=== PATIENT | female | born 1955 | race Two or more races ===

== ENCOUNTER 2020-05-01 10:41 | Outpatient (REF) | payer MEDICAID, SELFPAY ==
--- NOTE | 2020-05-01 | MM_ITS ---
EXAMINATION: MM SCREENING DIGITAL BREAST TOMOSYNTHESIS, BILATERAL CLINICAL INFORMATION: Screening. Asymptomatic. The lifetime risk of breast cancer based on the Tyrer-Cuzick Model is 4%. COMPARISON: Mammography: 08/30/2018, 06/22/2017 TECHNIQUE: Digital breast tomosynthesis is performed in both the craniocaudal and mediolateral oblique views along with computer-aided detection (CAD). Synthesized 2D images are generated from the tomosynthesis. FINDINGS: There are scattered areas of fibroglandular density (ACR BI-RADS breast composition Category b). There are scattered bilateral stable small nodularity again noted in each breast. There is no developing density or interval mass or architectural abnormality or abnormal calcifications. No significant changes. IMPRESSION: No significant changes from prior studies. ASSESSMENT: BI-RADS 2: Benign RECOMMENDATION: Routine annual mammography screening. This patient's information was entered into a reminder system with a target due date for their next mammogram.
== END 2020-05-01 10:42 | disposition home or self-care (01) ==
LOC: HO.MAMMO 10:41
PROVIDERS: Visit Provider Nurse Practitioner Family
DX: Z12.31 Encounter for screening mammogram for malignant neoplasm of breast (principal)
CPT/HCPCS: 77063; 77067; 78014

== ENCOUNTER 2021-04-02 09:10 | Emergency (ER) | payer MEDICARE, MEDICAID, SELFPAY ==
--- NOTE | ~2021-04-02 | XR_ITS ---
EXAMINATION: XR KNEE, RIGHT CLINICAL INFORMATION: Pain. COMPARISON: Previous right knee x-ray March 2017 TECHNIQUE: Four views of the right knee. FINDINGS: Bone alignment is normal. No fracture or dislocation is seen. There is arthritis at the lateral femoral tibial and patellofemoral joints with small osteophytes. There is no joint effusion. XR/XR knee RT 4V IMPRESSION: Mild arthritis.
--- NOTE | ~2021-04-02 | XR_ITS ---
EXAMINATION: XR TIBIA AND FIBULA, RIGHT CLINICAL INFORMATION: Vivar pain. No history of trauma. COMPARISON: None TECHNIQUE: AP and lateral views of the right tibia and fibula were obtained. FINDINGS: The bones and soft tissues are normal. No fracture. No osseous lesions. XR/XR tibia fibula RT 2V IMPRESSION: Normal right tibia and fibula.
--- NOTE | ~2021-04-02 | XR_ITS ---
EXAMINATION: LEFT HAND AND WRIST X-RAY CLINICAL INFORMATION: Pain. No history of trauma. COMPARISON: None TECHNIQUE: 4 views of the left hand and wrist FINDINGS: Bone alignment is normal. No acute fracture or dislocation is seen. There is a well-corticated ossification adjacent to the ulnar styloid and radial side of the DIP joint questionable for old trauma. There is mild arthritis at the first SNF joint and DIP joints of the second through fifth fingers and IP joint of the thumb. Soft tissues are unremarkable. XR/XR hand wrist LT IMPRESSION: Mild arthritis at the first SNF joint and IP joints.
[2021-04-02 09:24] VITALS: BP 147/72; PULSE 70; RESP 18; TEMP 36.9; O2SAT 98; BMI 36.5
--- NOTE | 2021-04-02 10:42 | ED.EXTPRO ---
HPI - Extremity Problem General Chief complaint: Extremity Problem Stated complaint: hand pain Time Seen by Provider: 04/02/21 10:23 Source: patient Mode of arrival: ambulatory Limitations: no limitations History of Present Illness HPI Narrative: 65-year-old female presenting to the ED with complaints of atraumatic left wrist/hand at the thumb aspect pain and atraumatic right knee pain/acevedo pain since yesterday worse today. She placed her thumb spica on that she reports she has had in the past to her left hand she reports that helps her pain to her left hand/wrist. She denies any injuries, fevers, chills, dizziness, headaches, neck pain/stiffness, paresthesias, chest pain, shortness of breath, dyspnea on exertion, orthopnea, palpitations, nausea/vomiting, abdominal pain or any other symptoms complaints or concerns at this time. MD Complaint: extremity pain Onset (ago): day(s) (Since yesterday worse today) Pain Consistency: constant Location: upper extremity (Left hand/wrist) and knee (Right knee/acevedo) Quality: aching and constant Radiation: none Relieving factors: immobilization Exacerbating factors: range of motion and palpation Associated symptoms: denies other symptoms Related Data Previous Rx's Medication Instructions Recorded acetaminophen 300 mg-codeine 30 mg 1 tab PO Q8H PRN #10 tab 04/02/21 tablet lidocaine HCl 4 % topical cream 1 appl TOPICAL BID PRN #120 g 04/02/21 (Aspercreme (lidocaine HCl)) naproxen 500 mg tablet 500 mg PO BID PRN #10 tab 04/02/21 Allergies Allergy/AdvReac Type Severity Reaction Status Date / Time No Known Allergies Allergy Unverified 04/11/20 14:49 [No Known Allergies*] Review of Systems Review of Systems: Constitutional : No Weight loss, No Fever, No Chills, No Night Sweats, No Fatigue, No Malaise ENT/Mouth : No Hearing loss, No Ear Pain, No Nasal Congestion, No Sinus Pain, No Hoarseness, No sore throat, No Rhinorrhea, No Swallowing Difficulty Eyes: No Eye Pain, No Swelling, No Redness, No Foreign Body, No Discharge, No Vision Changes Cardiovascular : No Chest Pain, No SOB, No Dyspnea on Exertion, No Orthopnea, No Edema, No Palpitations Respiratory : No Cough, No Sputum, No Wheezing, No Smoke Exposure, No Dyspnea Gastrointestinal : No Nausea, No Vomiting, No Diarrhea, No Constipation, No abdominal Pain, No Hematochezia, No Melena Genitourinary : no irregular bleeding, No Dysuria, No Urinary Frequency, No Hematuria, No Urinary Incontinence, No Urgency, No Flank Pain, No Urinary Flow Changes, No Hesitancy Musculoskeletal : Positive left hand/wrist/thumb joint pain and right knee/acevedo pain, No joint pain, No Myalgias, No Joint Swelling Skin : No Skin Lesions, No rash Neuro : No Weakness, No Numbness, No Paresthesias, No Loss of Consciousness, No Dizziness, No Headache Psych : No Anxiety/Panic, No Depression, No SI/HI/AH/VH, No Social Issues, Heme/Lymph: No Bruising, No Bleeding,No Lymphadenopathy Endocrine : No Polyuria, No Polydipsia, No Temperature Intolerance Yes all other systems are reviewed and are negative [facility] Past Medical History Attestation statement: The following information was validated with the patient. Medical History Arthritis Diabetes High cholesterol Hypertension Social History Social History Advance Directives: Yes Advance Directives Information Provided: Yes Advance Directives on File: No Physical Exam Vital Signs: Vital Signs: Last Vital Signs Temp 98.4 F 04/02/21 09:24 Pulse 70 04/02/21 09:24 Resp 18 04/02/21 09:24 BP 147/72 H 04/02/21 09:24 Pulse Ox 98 04/02/21 09:24 Body Mass Index 36.5 vital signs have been reviewed as normal and appeared to be correct. Blood pressure hypertensive 147/72 Heart rate normal. Respiration rate normal. Temperature normal. Oxygen saturation normal. Appearance: Alert. Oriented X3. No acute distress. Head: Normal external exam. Normocephalic. Atraumatic. Eyes: PERRLA. EOMI. Conjunctiva and sclera normal. Eyelids normal. ENT: Pharynx normal. Uvula midline. Moist mucous membranes. Neck: Normal inspection. Neck supple. FROM. No adenopathy. No meningeal signs. CVS: Normal heart rate and rhythm. Pulses normal throughout. Respiratory: No respiratory distress. Painless inspiration. Back: Full range of motion noted. No rashes/lesion/induration/fluctuance or signs of infection noted. Skin: Skin warm and dry. Normal skin color. Normal skin turgor. No rashes/lesions/lacerations noted. Extremities: Patient with tenderness palpation to left thumb at the proximal aspect with mild soft tissue swelling. Although patient has full range of motion no ligamentous laxity noted. No edema noted. Patient with sinus up patient to right knee joint at the lateral aspect of the knee/proximal acevedo aspect mild soft tissue swelling although no ligamentous laxity noted. Patient has full range of motion of the right knee and ankle joint. No lower extremity edema. No calf tenderness is noted b/l. Otherwise all other Extremities exhibit normal range of motion and nontender. Neuro: Oriented X 3. No motor deficit. No sensory deficit. Reflexes normal. Normal steady gait. No focal neuro deficits noted. Vascular: + radial pulses/+ 2 distal pedal pulses/+2 dorsalis pedis b/l. Normal cap refill. No cyanosis noted to upper extremity nails and lower extremity toes nails. Course Course Course Narrative: 65-year-old female presenting to the ED with complaints of atraumatic left hand/wrist/thumb and right knee/acevedo pain since yesterday worse today. Patient has full range of motion of all joints no signs of infection. No extremity edema noted. X-rays obtained and revealed arthritis otherwise no other acute processes. I had offered the patient an Dilan wrap although she reported she does not need an Dilan wrap. She already has a thumb spica to her left hand/wrist. Will DC home with instructions to follow-up with her primary care provider and referral to orthopedic and I explained to her to reach out to her primary care provider before reaching out to Orthopedics and to return if any new or worsening symptoms. Patient understands agrees with this plan. MDM - Extremity (Nontraumatic) Imaging Data X-ray of left hand/wrist and right knee/tibia/fibula: Attestation: I personally reviewed and interpreted this imaging study as follows: Radiologist's impression: FINDINGS: Bone alignment is normal. No acute fracture or dislocation is seen. There is a well-corticated ossification adjacent to the ulnar styloid and radial side of the DIP joint questionable for old trauma. There is mild arthritis at the first ASSISTED joint and DIP joints of the second through fifth fingers and IP joint of the thumb. Soft tissues are unremarkable.? XR/XR hand wrist LT IMPRESSION: Mild arthritis at the first ASSISTED joint and IP joints.? FINDINGS: Bone alignment is normal. No fracture or dislocation is seen. There is arthritis at the lateral femoral tibial and patellofemoral joints with small osteophytes. There is no joint effusion.? XR/XR knee RT 4V IMPRESSION: Mild arthritis. FINDINGS: The bones and soft tissues are normal. No fracture. No osseous lesions. ? XR/XR tibia fibula RT 2V IMPRESSION: Normal right tibia and fibula. Discharge Plan Discharge Clinical Impression: Arthritis Patient Disposition: Home, Self-Care Instructions: Osteoarthritis (ED) Prescriptions: New naproxen 500 mg tablet 500 mg PO BID PRN (Reason: pain) Qty: 10 RF: 0 lidocaine HCl [Aspercreme (lidocaine HCl)] 4 % cream 1 appl topical BID PRN (Reason: pain) Qty: 120 RF: 0 acetaminophen-codeine 300-30 mg tablet 1 tab PO Q8H PRN (Reason: pain) Qty: 10 RF: 0 Referrals: Vania Baldwin MD [Physician] - 2 weeks (If you cannot follow-up with her primary care provider) Physician,Will [Primary Care Provider] - 2 days Print Language: Anguillan
== END 2021-04-02 11:55 | disposition home or self-care (01) ==
PROVIDERS: Emergency Provider Emergency Medicine
DX: M19.032 Primary osteoarthritis, left wrist (principal); M25.532 Pain in left wrist; M79.605 Pain in left leg; M79.604 Pain in right leg; Z79.899 Other long term (current) drug therapy
CPT/HCPCS: 73110; 73130; 73564; 73590; 99283

== ENCOUNTER → 2021-04-11 14:43 | Outpatient (BNVA) | payer MEDICARE, MEDICAID, SELFPAY | PROVIDERS: Visit Provider Physician Assistant | DX: M17.11 Unilateral primary osteoarthritis, right knee (principal); M18.11 Unilateral primary osteoarthritis of first carpometacarpal joint, right hand | CPT/HCPCS: 20610; 99212; J1020 ==

== ENCOUNTER 2021-04-23 09:48 | Outpatient (RCR) | payer MEDICARE, MEDICAID, SELFPAY ==
--- NOTE | 2021-04-23 13:34 | MHC.OT.OEV ---
[address] [phone] F: [phone] Occupational Therapy Evaluation Diagnosis: Left thumb CMC Arthritis Date of Onset: 04/02/21 Attending Provider: Dimitris Davenport PA-C Prescribed Treatment: Eval and Treat History of Current Condition: 65 yo female presents w/ left thumb pain, seen in the ED and x-ray shows mild D1 CMC arthritis and IP arthritis. She was referred to [facility] and recommended to wear thumb spica orthosis, now referred to OT for further management. XR/XR hand wrist LT IMPRESSION: Mild arthritis at the first MCFP joint and IP joints. 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, enjoys watching tv Living Situation, Family and/or Social Support: Lives w/ Current Level of Function and Occupation Self Care, Employment, Leisure: Difficulty grasping items, primarily uses dominant right hand Sleep: WNL Driving: Does not drive Pain Assessment Pain Score: 6 Pain Scale Used: Numeric (0 - 10) Pain Location and Description: Pain free at rest Aggravating Factors: Grasping items, heavy use Alleviating Factors: Uses a cream, no significant relief Wears pre-willian orthosis w/ good relief Sensory Assessment Comments: Pt reports occasional burning in finger tips, hx of DM Dexterity Assessment Dexterity: WFL Comments: Special Tests Comments: (-) Grind Test B/L'ly AROM(PROM) Strength Cervical Cervical Flexion: Cervical Extension: Cervical Lateral Flexion: Cervical Rotation: Comments: WNL Shoulder Flexion: Extension: Abduction: Internal Rotation: External Rotation: Comments: WFL, min decreased end range flex Flexion: Extension: Abduction: Internal Rotation: External Rotation: Comments: Elbow Flexion: Extension: Pronation: Supination: Comments: WFL Flexion: Extension: Pronation: Supination: Comments: Wrist Flexion: Extension: Ulnar Deviation: Radial Deviation: Comments: WFL Flexion: Extension: Ulnar Deviation: Radial Deviation: Comments: Thumb Thumb CMC Flexion: Thumb MCP Flexion: Thumb IP Flexion: Radial Abduction: Palmar Abduction: Crestone (Kapandji 0-10): Comments: WFL Digits Index MCP: PIP: DIP: Long MCP: PIP: DIP: Ring MCP: PIP: DIP: Small MCP: PIP: DIP: Comments: WFL Gross Grasp: R 35lb L 25lb Lateral Pinch: Two-Point Pinch: Three-Jaw Ming: 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 Patient demonstrates Patient verbalizes Barriers to Learning: None Readiness for Learning: Accepting Who was educated? Patient Comments: Plan of Care Assessment: 65 yo female w/ hx of mild CMC arthritis, presents to OT for further education and management of pain. On assessment, she reports being pain free. Her left gross grasp is weaker than non-dominant hand, but within functional limits for daily activities and she reports using dominant right hand for most daily activities. She is pleasant and agreeable to brief course of OT for education on joint protection, activity modification and pain management. STG Duration: 1 week Short Term Goals: Ind w/ HEP Ind w/ orthosis wear a needed Pt to demo good use of joint protection and activity modification techniques w/ daily activities LTG Duration: Retirement Goals: Same as above Frequency and Duration: The patient will be seen 1-2 follow up visits Treatment Plan: Therapeutic Exercise Therapeutic Activity Home Exercise Program Splinting Patient Education Edema Control ADL Training Paraffin Fluidotherapy MHP Cold Packs Joint Mobilization Soft Tissue Mobilization Kinesiotaping Electronically Signed By: Yulia Mason OTR/L Please sign and return to therapist, Thank you for your referral.
--- NOTE | 2021-05-01 14:41 | MHC.OT.DC ---
[address] [phone] F: [phone] Occupational Therapy Discharge Note Provider: Dimitris Davenport PA-C Diagnosis: Left thumb CMC Arthritis Date of Evaluation: 04/23/21 Date of Discharge: 05/01/21 Treatments to Date: 1 No Shows to Date: 1 Discharge Status: Patient Elected to Stop Discharge Summary: Renate was seen for her initial OT appt, was pain free at the time w/ good range, receptive to education and agreed to brief course of OT. She did not show for follow up visit and did not schedule further therapy. She is likely Ind w/ self management. Electronically Signed By: Yulia Mason OTR/L Please Sign and return to therapist, thank you for your referral.
== END 2021-05-01 14:41 | disposition home or self-care (01) ==
LOC: HO.OT 09:48
PROVIDERS: Visit Provider Physician Assistant
DX: M18.11 Unilateral primary osteoarthritis of first carpometacarpal joint, right hand (principal)
CPT/HCPCS: 97110; 97165

== ENCOUNTER 2021-06-11 10:44 | Outpatient (REF) | payer MEDICARE, MEDICAID, SELFPAY ==
--- NOTE | ~2021-06-11 | MM_ITS ---
EXAMINATION: MM SCREENING DIGITAL BREAST TOMOSYNTHESIS, BILATERAL CLINICAL INFORMATION: Screening. Asymptomatic. The lifetime risk of breast cancer based on the Tyrer-Cuzick Model is 4%. COMPARISON: Mammography: 05/01/2020, 08/30/2018, 06/22/2017 TECHNIQUE: Digital breast tomosynthesis is performed in both the craniocaudal and mediolateral oblique views along with computer-aided detection (CAD). Synthesized 2D images are generated from the tomosynthesis. Additional left CC view is provided. FINDINGS: There are scattered areas of fibroglandular density (ACR BI-RADS breast composition Category b). There are no significant masses, abnormal calcifications, or other abnormalities. Background fine nodularity is stable. There is no interval dominant nodularity or developing density or architectural abnormality. There are scattered benign punctate and coarse round calcifications. The axilla and skin contours are unremarkable. MM/MM tomosynthesis screening BI IMPRESSION: No mammographic evidence of malignancy. ASSESSMENT: BI-RADS 2: Benign RECOMMENDATION: Routine annual mammography screening. This patient's information was entered into a reminder system with a target due date for their next mammogram.
== END 2021-06-11 10:45 | disposition home or self-care (01) ==
LOC: HO.MAMMO 10:44
PROVIDERS: Visit Provider Advanced Practice Midwife
DX: Z12.31 Encounter for screening mammogram for malignant neoplasm of breast (principal)
CPT/HCPCS: 77063; 77067

== ENCOUNTER 2022-01-12 09:42 | Outpatient (REF) | payer MEDICARE, MEDICAID, SELFPAY ==
--- NOTE | ~2022-01-12 | XR_ITS ---
EXAMINATION: XR KNEE BILATERAL CLINICAL INFORMATION: Bilateral knee pain. COMPARISON: None. TECHNIQUE: 4 views each knee. FINDINGS: RIGHT KNEE: There is a moderate loss of tricompartment joint space with mild periapical spurring lateral and patellofemoral compartments. No joint effusion, loose bodies or bony erosive changes seen. There is no fracture or dislocation. No abnormal joint effusion seen. LEFT KNEE: There is severe loss of medial and patellofemoral compartment joint space with moderate periarticular spurring. No abnormal suprapatellar joint effusion seen. There are no loose bodies. XR/XR knee RT 4V IMPRESSION: Degenerative osteoarthritic changes in the tricompartments of both knees with periarticular spurring lateral and patellofemoral compartment. No acute fracture, lytic process or soft tissue swelling seen.
--- NOTE | ~2022-01-12 | XR_ITS ---
EXAMINATION: XR KNEE BILATERAL CLINICAL INFORMATION: Bilateral knee pain. COMPARISON: None. TECHNIQUE: 4 views each knee. FINDINGS: RIGHT KNEE: There is a moderate loss of tricompartment joint space with mild periapical spurring lateral and patellofemoral compartments. No joint effusion, loose bodies or bony erosive changes seen. There is no fracture or dislocation. No abnormal joint effusion seen. LEFT KNEE: There is severe loss of medial and patellofemoral compartment joint space with moderate periarticular spurring. No abnormal suprapatellar joint effusion seen. There are no loose bodies. XR/XR knee LT 4V IMPRESSION: Degenerative osteoarthritic changes in the tricompartments of both knees with periarticular spurring lateral and patellofemoral compartment. No acute fracture, lytic process or soft tissue swelling seen.
== END 2022-01-12 09:43 | disposition home or self-care (01) ==
LOC: HO.XRAY 09:42
PROVIDERS: PCP Registered Nurse Community Health; Visit Provider Registered Nurse Community Health
DX: M17.0 Bilateral primary osteoarthritis of knee (principal)
CPT/HCPCS: 73564

== ENCOUNTER → 2022-01-16 09:51 | Outpatient (BNVA) | payer MEDICARE, MEDICAID, SELFPAY | PROVIDERS: PCP Registered Nurse Community Health; Visit Provider Orthopaedic Surgery | DX: M17.11 Unilateral primary osteoarthritis, right knee (principal) | CPT/HCPCS: 99212 ==

== ENCOUNTER 2023-03-18 11:00 | Outpatient (REF) | payer MEDICARE, MEDICAID, SELFPAY ==
[2023-03-18 14:18] LABS: Cholesterol 129 mg/dL (<200); HDL Cholesterol 48 mg/dL (>40); LDL Cholesterol Calculated 60 mg/dL (<100); Triglycerides 108 mg/dL (<150)
== END 2023-03-18 11:01 | disposition home or self-care (01) ==
LOC: HO.HHCL 11:00
PROVIDERS: Visit Provider Registered Nurse
DX: E11.9 Type 2 diabetes mellitus without complications (principal)
CPT/HCPCS: 36415; 80061

== ENCOUNTER 2023-03-23 13:08 | Outpatient (REF) | payer MEDICARE, MEDICAID, SELFPAY ==
[2023-03-23 17:31] LABS: Creatinine Urine 179.62 mg/dL; Microalbum/Creatinine Ratio Ur 28.3 ug/mg cr (<30)
== END 2023-03-23 13:09 | disposition home or self-care (01) ==
LOC: HO.HHCL 13:08
PROVIDERS: Visit Provider Registered Nurse
DX: E11.9 Type 2 diabetes mellitus without complications (principal)
CPT/HCPCS: 82043

== ENCOUNTER 2023-08-26 13:12 | Outpatient (REF) | payer MEDICARE, MEDICAID, SELFPAY ==
--- NOTE | ~2023-08-26 | XR_ITS ---
EXAMINATION: XR LUMBOSACRAL SPINE CLINICAL INFORMATION: Low back pain for 5 days COMPARISON: None available. TECHNIQUE: Three views of the lumbosacral spine. FINDINGS: There is mild levoscoliosis of lumbar spine and straightening of lumbar lordosis. Vertebral bodies are well aligned and intervertebral discs are preserved except of mild narrowing of L5-S1 intervertebral disc space. Pedicles are intact and there is no spondylolysis or listhesis. Soft tissues unremarkable. Sacroiliac joints are intact. XR/XR lumbar spine 2-3V IMPRESSION: Mild degenerative changes at the level of L5-S1.
== END 2023-08-26 13:13 | disposition home or self-care (01) ==
LOC: HO.HHCX 13:12
PROVIDERS: Visit Provider Emergency Medicine
DX: M54.50 Low back pain, unspecified (principal); R35.0 Frequency of micturition
CPT/HCPCS: 72100; 87086

== ENCOUNTER 2023-12-10 11:43 | Emergency (ER) | payer MEDICARE, MEDICAID, SELFPAY ==
--- NOTE | 2023-12-10 11:54 | ED_ITS ---
HPI - General Adult General Chief complaint: Upper Respiratory Symptoms Stated complaint: Flu symptoms Time Seen by Provider: 12/10/23 13:17 Source: patient and family Mode of arrival: ambulatory Limitations: no limitations History of Present Illness HPI narrative: 68 year old female hx of HTN, asthma, diabetes, arthritis presents w/ fatigue, malaise, myalgias, sore throat, cough, chest congestion/ soreness from coughing X 2 days sick with similar symptoms. No cp, sob, nausea, vomiting, diarrhea, vision changes, dizziness. Related Data Home Medications ?Medication ?Instructions ?Recorded ?Confirmed hydrochlorothiazide 25 mg tablet 25 mg PO DAILY 04/11/21 04/11/21 lisinopril 40 mg tablet 40 mg PO DAILY 04/11/21 04/11/21 metformin 500 mg tablet 1,000 mg PO BID 04/11/21 04/11/21 simvastatin 20 mg tablet 20 mg PO BEDTIME 04/11/21 04/11/21 Previous Rx's ?Medication ?Instructions ?Recorded acetaminophen 300 mg-codeine 30 mg 1 tab PO Q8H PRN pain #10 tabs 04/02/21 tablet lidocaine HCl 4 % topical cream 1 appl topical BID PRN pain #120 04/02/21 (Aspercreme (lidocaine HCl)) grams naproxen 500 mg tablet 500 mg PO BID PRN pain #10 tabs 04/02/21 Allergies Allergy/AdvReac Type Severity Reaction Status Date / Time No Known Allergies Allergy Verified 12/10/23 11:59 [No Known Allergies*] Review of Systems Review of Systems: Yes all other systems are reviewed and are negative PMFSH Past Medical History Attestation statement: The following information was validated with the patient. 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 Oriented X3.? No acute distress.? Head: Normocephalic, atraumatic, no step-offs or deformities Eyes: Pupils equal, round and reactive to light.? ENT: Pharynx normal.? Neck: Normal inspection.? Neck supple.? CVS: Normal heart rate and rhythm.? Pulses normal.? Respiratory: No respiratory distress.? Breath sounds normal.? Abdomen: Soft and nontender.? Skin: Skin warm and dry.? Normal skin color.? Normal skin turgor.? Extremities: No lower extremity edema.? No calf ttp. 5/5 strength to bilateral upper and lower extremities Neuro: Oriented X 3.? No motor deficit.? No sensory deficit. CN 2-12 intact Course Course Course Narrative: This is an RME done by SONI Canas: Additional HPI, ROS, PE not included below will be deferred to primary provider. 68 year old female hx of HTN, asthma, diabetes, arthritis presents w/ fatigue, malaise, myalgias, sore throat, cough, chest congestion/ soreness from coughing X 2 days sick with similar symptoms. No cp, sob, nausea, vomiting, diarrhea, vision changes, dizziness. Appearance: Alert.? Oriented X3.? No acute cardiopulmonary distress distress.? Head: Normocephalic, atraumatic, no step-offs or deformities ENT: Pharynx normal.? Neck: Normal inspection.? Neck supple.? CVS: Pulses normal.? Respiratory: No respiratory distress.? Abdomen: N/A Skin: ? Normal skin color. Extremities: 5/5 strength to bilateral upper and lower extremities Back: No midline tenderness, no C-spine tenderness, full range of motion, Neuro: Oriented X 3.? No motor deficit.? No sensory deficit. Reevaluation(s) Reevaluation #1: + covid --> dc w/ supportive measures Educated patient on diagnosis and treatment plan, answered all question, patient verbalizes understanding. At this time patient will be discharged home, advised to return with new or worsening symptoms. Educated on worrisome signs and symptoms and when to return. At this time I feel comfortable discharge home. Time: 13:27 Medical Decision Making Medical Decision Making [facility] Narrative: 1325 68 year old female presents w/ URI sx for the lasat 2 days. + sick contacts at home w/ similar sx. PE - benign hx and pe concerning for flu vs covid vs rsv. Unlikley acs, PE, pna, pneumothorax, ards, dissection, epiglotitis, RPA, DEHYDRATION UNIT OPERATOR, threat to airway Plan- strep test and viral test. Differential Diagnosis Differential Diagnoses: The differential diagnosis associated with the presentation includes hx and pe concerning for flu vs covid vs rsv. Unlikley acs, PE, pna, pneumothorax, ards, dissection, epiglotitis, RPA, DEHYDRATION UNIT OPERATOR, threat to airway Admission/Observation Consideration of admission/observation: Escalation of care including admission/observation considered Lab Data MDM Lab Attestation statement: I reviewed the patient's lab results. Labs: Lab Results 12/10/23 Range/Units 12:07 Influenza Type A (PCR) NEGATIVE (Negative) Influenza Type B (PCR) NEGATIVE (Negative) RSV RNA Qual (PCR) NEGATIVE (Negative) SARS-CoV-2 RNA (RT-PCR) POSITIVE A (Negative) S. pyogenes GrpA BLANCA Negative (Negative) Tests considered The following testing was considered but not selected: BS CTA- no indication for xray Prescription Management discussed paxlovid will follow up with PCP in regards to this med Chronic Conditions Patient?s care impacted by: Diabetes, Hypertension and Other Critical Care Time Critical Care Time Critical Care Time: No Discharge Plan Discharge Clinical Impression: COVID-19 Patient Disposition: Home, Self-Care Instructions: COVID-19 (Coronavirus Disease 2019) (ED) Additional Instructions: Take your medications as prescribed. If you were prescribed antibiotics today, it is important that you take your medication to their entirety, do not skip any doses, do not finish them early. Today you tested positive for COVID-19. Take Ibuprofen or Tylenol as needed for fevers or body aches. Quarantine for 5 days and ensure you wear a mask. After 5 days you should wear a mask for 5 days after that. Practice social distancing and good hand hygiene. Drink plenty of fluids. Follow-up with your primary care provider this week. Return to the emergency department with new or worsening symptoms. In case of emergency call 911 You can purchase a pulse oximeter from your local pharmacy or grocery store, and monitor your oxygen saturation if it goes below 94% you should return to the emergency department for further evaluation. Follow up with your PCP to discuss taking paxlovid if appropriate Prescriptions: No Action naproxen 500 mg tablet 500 mg PO BID PRN (Reason: pain) Qty: 10 0RF lidocaine HCl [Aspercreme (lidocaine HCl)] 4 % cream 1 appl topical BID PRN (Reason: pain) Qty: 120 0RF acetaminophen-codeine 300-30 mg tablet 1 tab PO Q8H PRN (Reason: pain) Qty: 10 0RF lisinopril 40 mg tablet 40 mg PO DAILY simvastatin 20 mg tablet 20 mg PO BEDTIME metformin 500 mg tablet 1,000 mg PO BID hydrochlorothiazide 25 mg tablet 25 mg PO DAILY Referrals: Physician,Unknown J [Primary Care Provider] - 2 days Print Language: Croatian
[2023-12-10 11:56] VITALS: BP 92/59; PULSE 84; RESP 20; TEMP 36.2; O2SAT 97; BMI 31.9
[2023-12-10 12:39] LABS: IDNOW Serial# 58CA691E; Strep A Nucleic Acid Negative (Negative)
[2023-12-10 13:08] LABS: Influenza A PCR NEGATIVE (Negative); Influenza B PCR NEGATIVE (Negative); Resp Syncy Virus RNA Qual PCR NEGATIVE (Negative); SARS COV2 PCR INHOUSE POSITIVE (Negative)
[2023-12-10 13:52] VITALS: BP 92/59; PULSE 64; RESP 20; TEMP 36.2; O2SAT 97
== END 2023-12-10 13:53 | disposition home or self-care (01) ==
LOC: HO.ED 13:45
PROVIDERS: Physician Assistant; Emergency Provider Emergency Medicine
DX: U07.1 COVID-19 (principal); J02.9 Acute pharyngitis, unspecified; R05.9 Cough, unspecified; R09.89 Other specified symptoms and signs involving the circulatory and respiratory systems
CPT/HCPCS: 0241U; 87651; 99282; 99283

== ENCOUNTER 2024-02-22 09:42 | Outpatient (REF) | payer MEDICARE, MEDICAID, SELFPAY ==
--- NOTE | ~2024-02-22 | XR_ITS ---
EXAMINATION: XR KNEE, RIGHT XR KNEE, LEFT CLINICAL INFORMATION: Osteoarthritis of both knees. COMPARISON: 01/12/2022 TECHNIQUE: Three views of each knee. FINDINGS: RIGHT KNEE: Bones are osteopenic. Moderate to severe lateral compartment joint space narrowing is again noted, more pronounced at the posterior weightbearing surface, similar to prior. Tricompartmental marginal osteophytes. No joint effusion. No fractures. LEFT KNEE: Moderate lateral compartment joint space narrowing. Tricompartmental marginal osteophytes. Chondrocalcinosis. No joint effusion. Bones are osteopenic. No fractures. XR/XR knee RT 3V IMPRESSION: Tricompartmental osteoarthritis in both knees, most pronounced in the lateral compartments, right greater than left. No significant change.
--- NOTE | ~2024-02-22 | XR_ITS ---
EXAMINATION: XR KNEE, RIGHT XR KNEE, LEFT CLINICAL INFORMATION: Osteoarthritis of both knees. COMPARISON: 01/12/2022 TECHNIQUE: Three views of each knee. FINDINGS: RIGHT KNEE: Bones are osteopenic. Moderate to severe lateral compartment joint space narrowing is again noted, more pronounced at the posterior weightbearing surface, similar to prior. Tricompartmental marginal osteophytes. No joint effusion. No fractures. LEFT KNEE: Moderate lateral compartment joint space narrowing. Tricompartmental marginal osteophytes. Chondrocalcinosis. No joint effusion. Bones are osteopenic. No fractures. XR/XR knee LT 3V IMPRESSION: Tricompartmental osteoarthritis in both knees, most pronounced in the lateral compartments, right greater than left. No significant change.
== END 2024-02-22 09:43 | disposition home or self-care (01) ==
LOC: HO.XRAY 09:42
PROVIDERS: PCP Registered Nurse; Visit Provider Registered Nurse
DX: M17.0 Bilateral primary osteoarthritis of knee (principal); M54.50 Low back pain, unspecified
CPT/HCPCS: 73562

== ENCOUNTER 2024-03-08 07:59 | Outpatient (REF) | payer MEDICARE, MEDICAID, SELFPAY ==
--- NOTE | ~2024-03-08 | MM_ITS ---
EXAMINATION: BONE DENSITOMETRY CLINICAL INDICATION: Asymptomatic menopausal state. COMPARISON: Previous BD dated 10/02/2011 and baseline BD dated 05/07/2010. TECHNIQUE: Using a [employer] DXA System (software version: 13.1) manufactured by [employer], dual-energy x-ray absorptiometry was performed of the lumbar spine and left hip. The images are of good technical quality. Summary results are attached. FINDINGS: LEFT FEMUR, NECK: Current: BMD 0.870 g/cm2, Z-score 0.1, T-score -1.2, osteopenia. Prior: BMD 1.024 g/cm2. Baseline: BMD 1.002 g/cm2. LEFT FEMUR, TOTAL: Current: BMD 0.921 g/cm2, Z-score 0.4, T-score -0.7, normal, 13.6% decrease from previous, 12.6% decrease from baseline (<5% change is not significant). Prior: BMD 1.066 g/cm2. Baseline: BMD 1.054 g/cm2. AP SPINE L1-L4: Current: BMD 1.085 g/cm2, Z-score 0.4, T-score -0.8, normal, 13.3% decrease from previous, 7.5% decrease from baseline (<5% change is not significant). Prior: BMD 1.251 g/cm2. Baseline: BMD 1.173 g/cm2. IDENTIFIED RISK FACTORS: Menopause, thiazide. HISTORY OF FRACTURE: None listed. MEDICATIONS: Vitamin D. MM/XR DEXA axial skeleton IMPRESSION: 1. DIAGNOSIS: Osteopenia based on the lowest T-score value of -1.2 in the femoral neck applying World Health Organization criteria. 2. 10-YEAR FRACTURE RISK PREDICTION, FRAX: Major osteoporotic fracture (clinical spine, forearm, hip or shoulder) 4.9%. Hip fracture 0.5%. 3. Treatment Recommendations: NOF guidelines recommend consideration for treatment in postmenopausal women and men age 50 and older presenting with the following: -A hip or vertebral (clinical or morphometric) fracture. -T-score less than or equal to -2.5 at the femoral neck or spine after appropriate evaluation to exclude secondary causes. -Low bone mass at the hip or spine and a 10-year fracture probability by FRAX of greater than or equal to 3% for hip fracture or greater than or equal to 20% for major osteoporotic fracture based on the [place] adapted WHO algorithm. 4. Other Recommendations: All treatment decisions require clinical judgment and consideration of individual patient factors, including patient preferences, comorbidities, previous drug use, risk factors not captured in the FRAX model (e.g. frailty, falls, vitamin D deficiency, increased bone turnover, interval significant decline in bone density) and possible under or overestimation of fracture risk by FRAX. Additional medical evaluation for secondary cause of low bone mineral density may be appropriate. FUTURE SCAN RECOMMENDATION: People with diagnosed cases of osteoporosis or at high risk for fracture should have regular bone mineral density tests. For patients eligible for Medicare, routine testing is allowed once every 2 years. The testing frequency can be increased to one year for patients who have rapidly progressing disease, those who are receiving or discontinuing medical therapy to restore bone mass, or have additional risk factors.
--- NOTE | ~2024-03-08 | MM_ITS ---
EXAMINATION: MM SCREENING DIGITAL BREAST TOMOSYNTHESIS, BILATERAL CLINICAL INFORMATION: Screening. Asymptomatic. COMPARISON: Mammography: This study is compared with prior exams dating back to 2017. TECHNIQUE: Digital breast tomosynthesis is performed in both the craniocaudal and mediolateral oblique views along with computer-aided detection (CAD). Synthesized 2D images are generated from the tomosynthesis. FINDINGS: There are scattered areas of fibroglandular density (ACR BI-RADS breast composition Category b). There are no significant masses, abnormal calcifications, or other abnormalities. MM/MM tomosynthesis screening BI IMPRESSION: No mammographic evidence of malignancy. ASSESSMENT: BI-RADS BI-RADS 1 - Negative RECOMMENDATION: Routine annual mammography screening. 1 year F/U This examination should not preclude the clinical evaluation of a suspicious palpable abnormality. This patient's information was entered into a reminder system with a target due date for their next mammogram. Electronically signed by: Tamara Goode MD 03/30/2024 04:18 PM EDT
== END 2024-03-08 08:00 | disposition home or self-care (01) ==
LOC: HO.MAMMO 07:59
PROVIDERS: PCP Registered Nurse; Visit Provider Registered Nurse
DX: Z12.31 Encounter for screening mammogram for malignant neoplasm of breast (principal); Z13.820 Encounter for screening for osteoporosis; Z78.0 Asymptomatic menopausal state
CPT/HCPCS: 77063; 77067; 77080

== ENCOUNTER → 2024-03-08 08:30 | Outpatient (BNV) | payer MEDICARE, MEDICAID, SELFPAY | PROVIDERS: PCP Registered Nurse; Visit Provider Radiology Diagnostic Radiology | DX: Z12.31 Encounter for screening mammogram for malignant neoplasm of breast (principal) | CPT/HCPCS: 77063; 77067 ==

== ENCOUNTER 2024-08-10 11:27 | Emergency (ER) | payer MEDICARE, MEDICAID, SELFPAY ==
--- NOTE | 2024-08-10 | ECG_ITS ---
Test Reason : dizziness Blood Pressure : */* mmHG Vent. Rate : 72 BPM Atrial Rate : 72 BPM P-R Int : 150 ms QRS Dur : 74 ms QT Int : 368 ms P-R-T Axes : 11 -28 17 degrees QTcB Int : 402 ms Normal sinus rhythm Nonspecific ST and T wave abnormality Abnormal ECG When compared with ECG of 14-May-2017 11:30, No significant change was found Referred By: Patricia Florence Electronically Signed By: Louie Bingham
--- NOTE | ~2024-08-10 | CT_ITS ---
EXAMINATION: CT HEAD WITHOUT CONTRAST CLINICAL INFORMATION: Dizziness. COMPARISON: None available. TECHNIQUE: Contiguous axial imaging was performed from the skull base to vertex without intravenous administration of contrast. This CT examination was performed using dose optimization techniques as appropriate, variously including the following: *Automated exposure control *Adjustment of mA and/or kV according to patient size (this includes techniques or standardized protocols for targeted exams where dose is matched to indication/reason for exam; i.e. extremities or head) *Use of iterative reconstruction technique FINDINGS: There is no evidence of intracranial hemorrhage or extra-axial fluid collection. There is no mass effect, or edema. No CT evidence of acute territorial infarct. Ventricles, sulci, and cisterns are normal in size and configuration for patient age. No hydrocephalus. No midline shift. Negative hyperdense MCA sign. Negative insular ribbon sign. Mild supratentorial white matter hypodensities, in keeping with small vessel ischemia. Partial empty sella. Globes and orbital contents image normally. No extracranial soft tissue abnormalities. The paranasal sinuses, mastoid air cells, and tympanic cavities are normally aerated. No suspicious bony abnormalities. CT/CT head/brain wo IV con IMPRESSION: No acute intracranial abnormality. Electronically signed by: Shaji Michael MD 08/10/2024 12:57 PM [facility]
[2024-08-10 11:32] VITALS: BP 142/72; BP 150/82; PULSE 74; PULSE 79; RESP 14; TEMP 36.3; O2SAT 98; BMI 30.1
--- NOTE | 2024-08-10 11:34 | ED.GENADULT ---
HPI - General Adult General Chief complaint: Dizziness Stated complaint: DIZZY FOR DAYS PER EMS Source: patient, RN notes reviewed and old records reviewed Mode of arrival: ambulatory Limitations: no limitations History of Present Illness ED Provider: Naman GOFF narrative: Patient is a 69-year-old female with history of DM, HTN, high cholesterol, arthritis presenting to the emergency department with complaint of intermittent dizziness for the past few days. She denies fall or other trauma. Denies headache, blurred vision, double vision, or other visual changes. Denies chest pain or shortness of breath. Does report occasional palpitations. Denies any abdominal pain, nausea, vomiting or diarrhea. Denies dysuria, frequency or other urinary symptoms. Denies recent fevers. Reports history of similar episodes of dizziness in the past, but states dizziness seemed more severe over the past few days. Denies ever taking any medications for her dizziness. States dizziness occurs at rest, not necessarily with position changes. Denies any weakness, numbness, or tingling to extremities. MD complaint: dizziness Onset (ago): day(s) Associated symptoms: other (palpitations) Treatments prior to arrival: none Related Data Home Medications ?Medication ?Instructions ?Recorded ?Confirmed hydrochlorothiazide 25 mg tablet 25 mg PO DAILY 04/11/21 04/11/21 lisinopril 40 mg tablet 40 mg PO DAILY 04/11/21 04/11/21 metformin 500 mg tablet 1,000 mg PO BID 04/11/21 04/11/21 simvastatin 20 mg tablet 20 mg PO BEDTIME 04/11/21 04/11/21 Previous Rx's ?Medication ?Instructions ?Recorded acetaminophen 300 mg-codeine 30 mg 1 tab PO Q8H PRN pain #10 tabs 04/02/21 tablet lidocaine HCl 4 % topical cream 1 appl topical BID PRN pain #120 04/02/21 (Aspercreme (lidocaine HCl)) grams naproxen 500 mg tablet 500 mg PO BID PRN pain #10 tabs 04/02/21 meclizine 25 mg tablet 25 mg PO BID PRN dizziness #10 tabs 08/10/24 Allergies Allergy/AdvReac Type Severity Reaction Status Date / Time No Known Allergies Allergy Verified 08/10/24 11:34 [No Known Allergies*] Review of Systems Review of Systems: As per HPI Yes all other systems are reviewed and are negative Constitutional: Constitutional: Reports as per HPI PMFSH Past Medical History Medical History High cholesterol Arthritis Hypertension Diabetes Social History Social History Smoked in Last 30 Days: No Use of substances other than those prescribed or required for medical reasons: No Advance Directives: No Advance Directives Information Provided: Yes Current occupational status: 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 Blood pressure normal. Heart rate normal. Respiratory rate normal. Temperature normal. Oxygen saturation normal. Const General: cooperative, healthy appearing and no acute distress Orientation/consciousness: oriented to person, oriented to place, oriented to time and patient oriented x3 Limitations: no limitations HENMT Head: Yes normocephalic and Yes atraumatic Ears: external ears normal, EAC's normal and TM abnormal with fluid behind the TM bilateral General nose exam: Normal external nose present Face and sinus: Yes face symmetric Mouth: oropharynx normal and moist mucous membranes Throat: Yes uvula midline Eyes General: appearance normal, both eyes and all related structures Visual Diego: normal visual diego by confrontation Alignment and Position: alignment normal and position normal Pupils: Equal, round and reactive pupils present EOM: EOMs intact bilaterally and No Nystagmus present Neck Neck: Yes normal visual inspection, Yes full ROM, Yes no lymphadenopathy, Yes no meningeal signs and Yes supple Resp Effort & Inspection: normal respiratory effort and able to speak in complete sentences Auscultation: clear to auscultation bilaterally Cardio Rate: regular rate Rhythm: regular rhythm Heart sounds: S1 normal heart sound present and S2 normal heart sound present GI Palpation (GI): Soft to palpation and nontender Auscultation: normoactive bowel sounds General: Yes no CVA tenderness Back/Spine/Pelvis Back: no CVA tenderness Skin General skin exam: elasticity normal and turgor normal Neuro General: oriented to person, oriented to place, oriented to time, patient oriented x3, gait normal, tone normal, moves all extremities, Normal light touch and pain sensation, no meningeal signs, no focal motor deficits, CN's II-XI intact bilaterally, deep tendon reflexes 2+ bilaterally and Ellie Hallpike (positive right side) Cranial nerves: Yes Equal, round and reactive pupils present and No Nystagmus present Cognition (Neuro): normal cognition Motor exam (neuro): 5/5 motor strength present throughout, Pronator motor function not present, Normal motor muscle tone present throughout and Motor abnormalities not present Sensory Exam: Normal double simultaneous stimulation for sensation Coordination: [id number] test normal and [id number]-[id number] test normal Extrem General: Yes full ROM, Yes no pedal edema and Yes no calf tenderness Psych Mental Status: mental status grossly normal Affect: normal affect Thought process: Normal thought process present NIH Stroke Scale Internal: Initial- Upon Arrival Time: 12:20 Level of Consciousness: Alert Level of Consciousness Questions: Answers both questions correctly Level of Consciousness Commands: Performs both tasks correctly Best Gaze: Normal Visual: No visual loss Facial Palsy: Normal Motor Arm (Right): No drift Motor Arm (Left): No drift Motor Leg (Right): No drift Motor Leg (Left): No drift Limb Ataxia: Absent Sensory: Normal Best Language: No aphasia Dysarthia: Normal Extinction and Inattention: No abnormality Score: 0 Medications Administered Discontinued Medications Generic Name Dose Route Start Last Admin Trade Name Zeeshanq PRN Reason Stop Dose Admin Meclizine HCl 25 mg 08/10/24 12:28 08/10/24 12:33 Meclizine Hcl 25 Mg Tablet PO 08/10/24 12:29 25 mg ONCE ONE Administration Medical Decision Making Medical Decision Making [facility] Narrative: Patient is a 69-year-old female with history of DM, HTN, high cholesterol, arthritis presenting to the emergency department with complaint of intermittent dizziness for the past few days. On exam patient is awake, A+Ox3, VS WNL, afebrile, normal neurological exam without focal deficits, physical exam findings as above. Given reported symptoms and physical exam findings, initial differential includes but is not limited to BPPV, vestibular neuritis, electrolyte abnormality, dehydration/orthostatic intolerance, viral illness. Labs within normal limits, troponin negative. EKG shows normal sinus rhythm. CT notable for no evidence of ICH, mass, or other abnormality. My interpretation is in agreement with the radiologist's interpretation. Viral serology negative. Positive Ellie Hallpike on right. Ambulates with steady gait, no ataxia. No orthostatic intolerance. Juan maneuver performed with patient with family at bedside, and patient provided with written instructions for performing this at home. Discussed with daughter that if patient feels unable to complete these maneuvers on her own at home, she can follow up with her PCP who can order physical therapy for her vertigo. Patient reports good improvement in vertigo after taking meclizine in the ED. feel patient is stable for discharge home. Return precautions disucssed with patient and family at bedside. Will send prescription for meclizine. Follow up with PCP. Patient and family verbalized understanding of and agreement with plan. Differential Diagnosis Differential Diagnoses: The differential diagnosis associated with the presentation includes As per [facility] Admission/Observation Consideration of admission/observation: Escalation of care including admission/observation considered Patient would have been admitted to the hospital had their work up had any findings where hospital admission was appropriate and their clinical presentation warranted hospital admission. Lab Data [facility] Lab Attestation statement: I reviewed the patient's lab results. As per [facility] 08/10/24 11:49 08/10/24 11:49 Labs: Lab Results 08/10/24 Range/Units 11:49 WBC 10.1 (4.8-10.8) X10*3/uL RBC 4.21 (4.20-5.50) X10*6/uL Hgb 12.0 (12.0-16.0) g/dl Hct 38.0 (37.0-47.0) % MCV 90.3 (80.0-98.0) fL MCH 28.5 (27.0-33.0) pg MCHC 31.6 (31.0-35.0) g/dl RDW 13.6 (11.0-16.0) % Plt Count 371 (160-400) X10*3/uL MPV 9.6 (9.4-12.3) fL Immature Gran % (Auto) 0.3 (0.0-0.4) % Neut % (Auto) 50.0 (45-73) % Lymph % (Auto) 37.0 (20-40) % [place] % (Auto) 7.9 (2-11) % Eos % (Auto) 4.1 H (0-4) % Baso % (Auto) 0.7 (0-2) % Lymph # (Auto) 3.7 (1.2-4.9) X10*3/uL [place] # (Auto) 0.8 (0.1-1.2) X10*3/uL Eos # (Auto) 0.4 (0.0-0.4) X10*3/uL Baso # (Auto) 0.1 (0.0-0.2) X10*3/uL Abs Immat Gran (auto) 0.03 (0.00-0.03) X10*3/uL Absolute Neuts (auto) 5.0 (2.0-8.3) x10*3/uL Absolute Nucleated RBC 0.000 (0.0-0.012) X10*3/uL Nucleated RBC % (auto) 0.0 (0.0-0.2) /100WBC PT 13.4 H (10.9-12.4) SEC INR 1.2 H (0.9-1.1) Sodium 143 (135-145) mmol/L Potassium 4.3 (3.3-5.1) mmol/L Chloride 108 (96-108) mmol/L Carbon Dioxide 30 H (22-29) mmol/L Anion Gap 9 L (12-20) BUN 11 (9-16) mg/dL Creatinine 0.81 (0.5-1.4) mg/dL Estim Creat Clear Calc 64.4 Estimated GFR > 60 Random Glucose 99 (60-115) mg/dL Calcium 9.4 (8.4-10.2) mg/dL Magnesium 2.1 (1.6-2.6) mg/dL Total Bilirubin 0.2 (0.0-1.0) mg/dL AST 26 (5-31) U/L ALT 25 (0-31) U/L Alkaline Phosphatase 80 (39-117) U/L Troponin I High Sens < 2.7 (<3.5-17.0) ng/L Total Protein 7.4 (6.5-8.0) g/dL Albumin 4.0 (3.5-5.0) g/dL Influenza Type A (PCR) NEGATIVE (Negative) Influenza Type B (PCR) NEGATIVE (Negative) RSV RNA Qual (PCR) NEGATIVE (Negative) SARS-CoV-2 RNA (RT-PCR) NEGATIVE (Negative) Independent Interpretation I performed an independent interpretation of an: EKG (normal sinus rhythm, rate 72bpm, normal KS interval, no significant change from prior) and CT Scan Interpretation: CT notable for no evidence of ICH, mass, or other abnormality. Radiology Impression Discussion of test interpretation with radiology: I have reviewed the radiologist's reading. Radiologist Impression: CT/CT head/brain wo IV con IMPRESSION: No acute intracranial abnormality. External Record Review External record reviewed: Inpatient record, Office record and Outpatient record Prescription Management I considered prescription management with: Other Discharge Plan Discharge Clinical Impression: Dizziness Patient Disposition: Home, Self-Care Instructions: Vertigo (DC), Dizziness (ED) Additional Instructions: You have been evaluated in the emergency department today for dizziness. Your evaluation suggests that your symptoms are most likely due to peripheral vertigo. You have been prescribed meclizine to help relieve your symptoms. Please take your prescription as directed. You can also try Juan maneuvers at home to help relieve your symptoms, instructions have been included in your discharge paperwork. Please follow up with your primary care provider within the next 3 days. Return to the emergency department immediately for worsening or uncontrolled symptoms, worsening headache, chest pain, shortness of breath, persistent vomiting, vision changes, fainting, or for any other concerning symptoms. Prescriptions: New meclizine 25 mg tablet 25 mg PO BID PRN (Reason: dizziness) Qty: 10 0RF No Action naproxen 500 mg tablet 500 mg PO BID PRN (Reason: pain) Qty: 10 0RF lidocaine HCl [Aspercreme (lidocaine HCl)] 4 % cream 1 appl topical BID PRN (Reason: pain) Qty: 120 0RF acetaminophen-codeine 300-30 mg tablet 1 tab PO Q8H PRN (Reason: pain) Qty: 10 0RF lisinopril 40 mg tablet 40 mg PO DAILY simvastatin 20 mg tablet 20 mg PO BEDTIME metformin 500 mg tablet 1,000 mg PO BID hydrochlorothiazide 25 mg tablet 25 mg PO DAILY Print Language: Sammarinese
[2024-08-10 11:39] VITALS: BP 142/72; PULSE 76; RESP 14; TEMP 36.3; O2SAT 98
[2024-08-10 11:53] VITALS: BP 123/79; BP 129/83; BP 143/77; PULSE 71; PULSE 74; PULSE 81
[2024-08-10 11:54] LABS: MANUAL DIFF FLAG NO
[2024-08-10 11:57] LABS: Basophils Absolute Auto 0.1 X10*3/uL (0.0-0.2); Basophils Percent Auto 0.7 % (0-2); Eosinophils Absolute Auto 0.4 X10*3/uL (0.0-0.4); Eosinophils Percent Auto 4.1 % (0-4); Imm Gran Abs Auto 0.03 X10*3/uL (0.00-0.03); Imm Gran Pct Auto 0.3 % (0.0-0.4); Lymphocytes Absolute Auto 3.7 X10*3/uL (1.2-4.9); Mean Corpuscular HGB Conc 31.6 g/dl (31.0-35.0); Mean Corpuscular Hemoglobin 28.5 pg (27.0-33.0); Mean Corpuscular Volume 90.3 fL (80.0-98.0); Mean Platelet Volume 9.6 fL (9.4-12.3); Monocytes Absolute Auto 0.8 X10*3/uL (0.1-1.2); Monocytes Percent Auto 7.9 % (2-11); Platelet Count 371 X10*3/uL (160-400); Red Blood Count 4.21 X10*6/uL (4.20-5.50); Red Cell Distribution Width 13.6 % (11.0-16.0); White Blood Count 10.1 X10*3/uL (4.8-10.8)
[2024-08-10 12:08] LABS: INTERNATIONAL NORM RATIO 1.2 (0.9-1.1); Prothrombin Time 13.4 SEC (10.9-12.4)
[2024-08-10 12:16] LABS: Alanine Aminotransferase 25 U/L (0-31); Alkaline Phosphatase 80 U/L (39-117); Anion Gap 9 (12-20); Aspartate Amino Transferase 26 U/L (5-31); Bilirubin Total 0.2 mg/dL (0.0-1.0); Blood Urea Nitrogen 11 mg/dL (9-16); Calcium 9.4 mg/dL (8.4-10.2); Carbon Dioxide 30 mmol/L (22-29); Chloride 108 mmol/L (96-108); Creatinine Clr Calc Pharmacy 64.4; Estimated Glomerular Filt Rate > 60; Glucose Random 99 mg/dL (60-115); Magnesium 2.1 mg/dL (1.6-2.6); Potassium 4.3 mmol/L (3.3-5.1); Sodium 143 mmol/L (135-145); Total Protein 7.4 g/dL (6.5-8.0)
[2024-08-10 12:24] LABS: Troponin-I High Sensitivity < 2.7 ng/L (<3.5-17.0)
[2024-08-10] MEDS: Meclizine HCl 25 MG TABLET PO (12:33)
[2024-08-10 12:34] VITALS: BP 147/79; PULSE 70; RESP 11; O2SAT 98
[2024-08-10 12:34] LABS: Influenza A PCR NEGATIVE (Negative); Influenza B PCR NEGATIVE (Negative); Resp Syncy Virus RNA Qual PCR NEGATIVE (Negative); SARS COV2 PCR INHOUSE NEGATIVE (Negative)
[2024-08-10 14:00] VITALS: BP 147/79; PULSE 70; RESP 11; TEMP 36.9; O2SAT 98
== END 2024-08-10 14:14 | disposition home or self-care (01) ==
PROVIDERS: Registered Nurse Emergency; Emergency Provider Student in an Organized Health Care Education/Training Program
DX: R42 Dizziness and giddiness (principal); E11.9 Type 2 diabetes mellitus without complications; I10 Essential (primary) hypertension; R00.2 Palpitations; Z51.81 Encounter for therapeutic drug level monitoring; Z79.899 Other long term (current) drug therapy; Z03.818 Encounter for observation for suspected exposure to other biological agents ruled out
CPT/HCPCS: 0241U; 70450; 80053; 83735; 84484; 85025; 85610; 93005; 99284

== ENCOUNTER → 2024-08-10 11:35 | Outpatient (BNV) | payer MEDICARE, MEDICAID, SELFPAY | PROVIDERS: Emergency Provider Student in an Organized Health Care Education/Training Program; Visit Provider Internal Medicine Cardiovascular Disease | DX: R94.31 Abnormal electrocardiogram [ECG] [EKG] (principal) | CPT/HCPCS: 93010 ==

== ENCOUNTER → 2024-08-10 12:13 | Outpatient (BNV) | payer MEDICARE, MEDICAID, SELFPAY | PROVIDERS: Emergency Provider Student in an Organized Health Care Education/Training Program; Visit Provider Radiology Diagnostic Radiology | DX: R42 Dizziness and giddiness (principal) | CPT/HCPCS: 70450 ==

== ENCOUNTER 2024-09-25 14:10 | Outpatient (REF) | payer MEDICARE, MEDICAID, SELFPAY ==
[2024-09-25 16:25] LABS: MANUAL DIFF FLAG NO
[2024-09-25 16:30] LABS: Basophils Absolute Auto 0.1 X10*3/uL (0.0-0.2); Basophils Percent Auto 0.6 % (0-2); Eosinophils Absolute Auto 0.2 X10*3/uL (0.0-0.4); Eosinophils Percent Auto 2.7 % (0-4); Hematocrit 37.1 % (37.0-47.0); Hemoglobin 11.8 g/dl (12.0-16.0); Imm Gran Abs Auto 0.04 X10*3/uL (0.00-0.03); Imm Gran Pct Auto 0.5 % (0.0-0.4); Lymphocytes Absolute Auto 3.6 X10*3/uL (1.2-4.9); Lymphocytes Percent Auto 40.5 % (20-40); Mean Corpuscular HGB Conc 31.8 g/dl (31.0-35.0); Mean Corpuscular Hemoglobin 28.8 pg (27.0-33.0); Mean Corpuscular Volume 90.5 fL (80.0-98.0); Mean Platelet Volume 10.4 fL (9.4-12.3); Monocytes Absolute Auto 0.5 X10*3/uL (0.1-1.2); Monocytes Percent Auto 5.5 % (2-11); Neutrophils Absolute Auto 4.4 x10*3/uL (2.0-8.3); Neutrophils Percent Auto 50.2 % (45-73); Platelet Count 414 X10*3/uL (160-400); Red Cell Distribution Width 13.3 % (11.0-16.0); White Blood Count 8.8 X10*3/uL (4.8-10.8)
[2024-09-25 16:53] LABS: Alanine Aminotransferase 18 U/L (0-31); Albumin Level 4.1 g/dL (3.5-5.0); Alkaline Phosphatase 79 U/L (39-117); Anion Gap 11 (12-20); Aspartate Amino Transferase 21 U/L (5-31); Bilirubin Total 0.2 mg/dL (0.0-1.0); Blood Urea Nitrogen 12 mg/dL (9-16); Calcium 9.7 mg/dL (8.4-10.2); Carbon Dioxide 32 mmol/L (22-29); Chloride 104 mmol/L (96-108); Cholesterol 132 mg/dL (<200); Estimated Glomerular Filt Rate > 60; Glucose Random 115 mg/dL (60-115); HDL Cholesterol 49 mg/dL (>40); LDL Cholesterol Calculated 64 mg/dL (<100); Potassium 3.8 mmol/L (3.3-5.1); Sodium 143 mmol/L (135-145); Total Protein 7.6 g/dL (6.5-8.0); Triglycerides 96 mg/dL (<150)
[2024-09-25 16:57] LABS: Vitamin D 25-OH Total 56.4 ng/mL (>30)
[2024-09-25 17:00] LABS: TSH reflex Free T4 0.43 uIU/mL (0.32-4.0)
--- OUTSIDE RECORDS SUMMARY | 2024-09-25 17:01 | XMS_ITS | Encounter Summary ---
Author Organization [employer] Address [address] [facility] [place] [address] Care Team Providers Care Butcher Name Role Phone Maria Guadalupe Carrizales PETER Primary Care Provider [phone] Paramjit Iglesias MD Unavailable [phone] Encounter Details Date Type Department Care Team (Late st Contact Info) Description 04/03/2024 Orders Only [facility] [address] [place], [place] [id number] ProviderDylon MD Social History Tobacco Use Types Packs/Day Years Used Date Smoking Tobacco: Never Smokeless Tobacco: Never Alcohol Use Standard Drinks/Week Comments Never 0 (1 standard drink = 0.6 oz pur e alcohol) Alcohol Answer Date Recorded Frequency of Alcohol Consumption Not on file 02/18/2024 Average Number of Drinks Not on file 024 Frequency of Binge Drinking Not on file 01/24 Score 0 02/18/2024 Depression Answer Date Recorded Patient Health Questionnaire-9 Score 0 11/12/2023 Patient Health Questionnaire-9 Score 0 11/12/2023 Last PHQ-9: Questionnaire Data Not on file 0 11/12/2023 Housing Stability Answer Date Recorded What is your housing situation today? I have cat pantoja 05/16/[address] you li ve. Do you have problems with any of the following? None of the above 05/16/2023 Food Insecurity Answer Date Recorded Within the past 12 months, y ou worried that your food would run out before you got money to buy more: Never True 05/16/2023 Within the past 12 months,th e food you bought just didn't last and you didn't have enough money to get more: Never True Transportation Answer Date Recorded In the past 12 months, has l ack of transportation kept you from medical appts, meetings, work or from getting things needed for daily living? No 05/16/2023 Utilities Answer Date Recorded In the past 12 months, has t he electric, gas, oil or water company threatened to shut off services in your home? No 05/16/2023 Depression Answer Date Recorded Patient Health Questionnaire-2 Score 0 11/12/2023 Internet Access Answer Date Recorded Internet Access Q1 No 03/24/2024 Internet Access Q2 I do not want or need it 02/25 Comments Unknown Sex and Gender Information Value Date Recorded Sex Assigned at Female 05/25/2022 10:14 AM EDT Legal Sex Female 10:14 AM EDT Gender Identity Female 05/25/2022 10:14 AM EDT Sexual Orientation Straight 05/25/2022 10 :14 AM EDT documented as of this encounter Plan of Treatment Upcoming Encounters Date Type Department Care Team (Late st Contact Info) Description 10/30/2024 9:15 AM EDT Office Visit [facility] [address] [place] [address] Maria Guadalupe Carrizales FNP [address] [place] [address] documented as of this encounter Procedures Procedure Name Priority Date/Time Associated Diagnosis Comments COLONOSCOPY Routine 10/31/2014 2:07 PM EDT documented in this encounter Results * Colonoscopy (10/31/2014 2:07 PM EDT) Historical Provider HEALTH MAINTENANCE Final Result documented in this encounter Visit Diagnoses Not on filedocumented in this encounter Additional Health Concerns Assessment Noted Time PHQ-9 Depression Total Score: 0 11/12/19 24 8:48 AM EDT documented as of this encounter Care Teams Butcher Relationship Specialty Start Date End Date Maria Guadalupe Carrizales FNP [address] [place] [address] PCP - General Family Medicine 03/24/22 Paramjit Iglesias MD [address] [place] [address] Gastroenterology 09/18/24 documented as of this encounter
--- OUTSIDE RECORDS SUMMARY | 2024-09-25 17:01 | XMS_ITS ---
Author Organization [facility] Address [address] [place] [address] Care Team Providers Care Oncology Admin Name Role Phone ADENIKE MURRAY MD Primary Care Provider UnavailParamjit Gutierres Jr REASON FOR VISIT Patient presents today for a screening colonoscopy Encounters Encounter Location Date Provider Diagnosis [facility] [address] [place] [address] 07/13/2024 Paramjit Iglesias Jr PLAN OF TREATMENT Next Appt Details Provider Name:Paramjit [place] Jr, 11/16/2024 01:55:00 PM, [address], [address], [place], [address],
--- OUTSIDE RECORDS SUMMARY | 2024-09-25 17:01 | XMS_ITS | Encounter Summary ---
Author Organization [employer] Address [address] [place] [address] Care Team Providers Care Bladder Tier Name Role Phone Maria Guadalupe Carrizales PETER Primary Care Provider [phone] Paramjit Iglesias MD Unavailable [phone] Encounter Details Date Type Department Care Team (Latest Contact Info) Description 09/25/2024 Travel Social History Tobacco Use Types Packs/Day Years Used Date Smoking Tobacco: Never Passive Smoke Exposure: Never Smokeless Tobacco: Never Alcohol Use Standard [...] is your housing situation today? I have housing today, but I am worried about losing housing in the future 09/25/[address] you li ve. Do you have problems with any of the following? None of the above 09/25/2024 Food Insecurity Answer Date Recorded Within the past 12 months, y ou worried that your food would run out before you got money to buy more: Sometimes True 2024 Within the past 12 months,th e food you bought just didn't last and you didn't have enough money to get more: Sometimes True 09/25/2024 Transportation Answer Date Recorded In the past 12 months, has l ack of transportation kept you from medical appts, meetings, work or from getting things needed for daily living? Yes, it has kept me from medical appointments or getting medications. 09/25/2024 Utilities Answer Date Recorded In the past 12 months, has t he electric, gas, oil or water company threatened to shut off services in your home? No 05/16/2023 Depression Answer Date Recorded Patient Health Questionnaire-2 Score 2 09/25/2024 Internet Access Answer Date Recorded Internet Access [...] Upcoming Encounters Date Type Department Care Team ([facility] st Contact Info) Description 10/30/2024 9:15 AM EDT Office Visit [facility] [address] [place] [address] Maria Guadalupe Carrizales FNP [address] [place] [address] documented as of this encounter Visit Diagnoses Not on filedocumented in this encounter Additional Health Concerns Assessment Noted Time PHQ-9 Depression Total Score: 0 11/12/19 24 8:48 AM EDT documented as of this encounter Care Teams Bladder Tier Relationship Specialty Start Date End Date Maria Guadalupe Carrizales FNP [address] [place] [address] PCP - General Family Medicine 03/24/22 Paramjit Iglesias MD [address] [place] [address] Gastroenterology 09/18/24 documented as of this encounter
--- OUTSIDE RECORDS SUMMARY | 2024-09-25 17:01 | XMS_ITS | Encounter Summary ---
Author Organization [employer] Address [address] [place] [address] Care Team Providers Care Water Treatment Plant Mechanic Name Role Phone Maria Guadalupe Carrizales Primary Care Provider [phone] Paramjit Iglesias MD Unavailable [phone] Encounter Details Date Type Department Care Team (Late st Contact Info) Description 09/25/2024 Telephone [facility] [address] [place] [address] Maria Guadalupe Carrizales FNP [address] [place], [place] [phone] Social History Tobacco Use Types Packs/Day Years [...] the past 12 months, has t he [employer], gas, oil or water [email or web address] threatened to shut off services in your [...] AM EDT documented as of this encounter Miscellaneous Notes * Telephone Encounter - Edel Del Toro RN - 09/25/2024 1:48 PM EST Please review AWV from 09/25/24 pt screened positive for food insecurity and is also interested in [employer] services. Forwarding to [facility] team for follow-up. Please let me know if you have any questions. documented in this encounter Plan of Treatment Upcoming Encounters Date Type Department Care Team (Late st Contact Info) Description 10/30/2024 9:15 AM EDT Office Visit [facility] [address] [place] [address] Maria Guadalupe Carrizales FNP [address] [place] [address] documented as of this encounter Visit Diagnoses Not on filedocumented in this encounter Additional Health Concerns Assessment Noted Time PHQ-9 Depression Total Score: 0 11/12/19 8:48 AM EDT documented as of this encounter Care Teams Water Treatment Plant Mechanic Relationship Specialty Start Date End Date Maria Guadalupe Carrizales FNP [address] [place] [address] PCP - General Family Medicine 03/24/22 Paramjit Iglesias MD [address] [place] [address] Gastroenterology 09/18/24 documented as of this encounter
--- OUTSIDE RECORDS SUMMARY | 2024-09-25 17:01 | XMS_ITS | Patient Health Record ---
Author Organization [facility] Address [address] [place] [address] Care Team Providers Care Research Scientist Name Role Phone ADENIKE MURRAY MD Primary Care Provider Paramjit Irby Jr Unavailable [phone] REASON FOR REFERRAL No Information SOCIAL HISTORY Sex Assigned At : Social History Observation Description Sex Assigned At Unknown Encounters Encounter Location Date Provider Diagnosis [facility] [address] [place] [address] 07/13/2024 Paramjit Iglesias Jr PLAN OF TREATMENT Next Appt Details Provider Name:Paramjit [place] Jr, 11/16/2024 01:55:00 PM, [address], [address], [place], [address], Insurance Providers Payer Name Payer Address Payer Phone Subscriber Number Group Number Insured Name Patient Relationship to Insured Coverage Start Date Coverage End Date MEDICARE OF [place] [address] [place] [address] [id number] OLIVE PENA Self - patient is the insured MEDICAID OF [facility] [address] [place] [phone] [id number] OLIVE PENA Self - patient is the insured
--- OUTSIDE RECORDS SUMMARY | 2024-09-25 17:01 | XMS_ITS | Encounter Summary ---
Author Organization [employer] Address [address] [facility] [address] [place] [address] Care Team Providers Care Clip Wrapper Name Role Phone Maria Guadalupe Carriazles Primary Care Provider [phone] Paramjit Iglesias MD Unavailable [phone] Reason for Visit * Reason Comments Care Coordination CHW outreach for SDO H food needs-LVM Encounter Details Date Type Department Care Team (Latest Contact Info) Description 09/25/2024 Patient Outreach [facility] [address], [place] [phone] Maria Guadalupe Carrizales FNP [address] [place], [place] [phone] Care Coordination (CHW outreach for SDOH food needs-LVM ) Social History Tobacco Use Types Packs/Day Years [...] AM EDT documented as of this encounter Progress Notes * Toñito Gibson - 09/25/2024 2:22 PM EST CHW Toñito Gibson, placed outbound call to patient for assistance with SDOH as a referral was placed by the provider. Patient had screened positive for the following SDOH insecurities. No answer atthis time. Patient's name and were not confirmed. CHW left detailed message and provided contact information requesting return call for assistance. Patient educated on extended clinic hours on Mondays through Wednesdays, and Walk-In Urgent Care Located in [facility]. Patient provided with after-hours line for [facility], , which offer night time triage service and option to transfer toon call provider if needed. documented in this encounter Plan of Treatment Upcoming Encounters Date Type Department Care Team (Late st Contact Info) Description 10/30/2024 9:15 AM EDT Office Visit [facility] [address], [place] [phone] Maria Guadalupe Carrizales FNP [address] [place] [phone] documented as of this encounter Visit Diagnoses Not on filedocumented in this encounter Additional Health Concerns Assessment Noted Time PHQ-9 Depression Total Score: 0 11/12/19 24 8:48 AM EDT documented as of this encounter Care Teams Clip Wrapper Relationship Specialty Start Date End Date Maria Guadalupe Carrizales FNP [address] [place] [phone] PCP - General Family Medicine 03/24/22 Paramjit Iglesias MD [address] [place] [id number] Gastroenterology 09/18/24 documented as of this encounter
--- OUTSIDE RECORDS SUMMARY | 2024-09-25 17:01 | XMS_ITS | Clinical Summary ---
Author Organization [facility] Address [address] [place] [address] Care Team Providers Care Manager Business Development Hospice Name Role Phone Maria Guadalupe Carrizales PETER Primary Care Provider [phone] Paramjit Iglesias MD Unavailable [phone] Allergies No known active allergies Medications glucose blood (FREESTYLE LITE) test strip 1 strip at bed time. 1 Active Diclofenac Sodium 1 % gelIndications:A rthritis Use 3-4 times daily as needed for knee pain 50 g 1 2 Active Additional Information Patient not taking.Reported on 09/25/2024 ibuprofen 400 MG tablet TAKE 1 TO 2 TABLETS BY MOUTH EVERY 8 HOURS NEEDED 100 tablet 3 Active Blood Pressure Monitor kitIndications:E ssential hypertension Check BP daily and when symptomatic 1 kit 3 Active simvastatin (Zocor) 20 MG tablet Take 1 tablet (20 mg) by mouth in the evening. (For cholesterol) 90 tablet 3 4 Active calcium carbonate (Calcium 600) 600 MG tablet Take 1 tablet (600 mg) by mouth Once per day. 90 tablet 3 4 03/15/20 25 Active Additional Information Patient not taking.Reported on 09/25/2024 metFORMIN (Glucophage) 500 MG tabletIndication s:Type 2 diabetes mellitus without complication, without long-term current use of insulin (CMS/HCC) TAKE 2 TABLETS BY MOUTH ONCE DAILY 180 tablet 3 4 Active hydroCHLOROthiaz jonn 12.5 MG tabletIndication s:Essential hypertension Take 1 tablet (12.5 mg) by mouth in the morning. 90 tablet 3 4 Active lisinopril 40 MG tabletIndication s:Essential hypertension Take 1 tablet (40 mg) by mouth Once per day. 90 tablet 3 4 Active cholecalciferol VITAMIN D (Vitamin D-3) 50 MCG (1999 UT) tabletIndication s:Vitamin D deficiency TAKE 1 TABLET BY MOUTH EVERY MORNING 90 tablet 1 4 Active Active Problems Problem Noted Date Diagnosed Date Osteopenia after menopause 03/09/2024 Overview (05/22/2024): DEXA completed 03/08/24: Osteopenia based on the lowest T-score value of -1.2 in the femoral neck Cont Vit D & calcium supplements Assessment & Plan (05/22/2024 6:45 PM EDT): Encouraged lifestyle interventions Low back pain at multiple sites 11/13/2023 Overview (11/13/2023): Xray Aug 2023: Mild degenerative changes at the level of L5-S1. Assessment & Plan (05/22/2024 6:46 PM EDT): -No bowel/bladder incontinence or saddle paresthesia. No radicular symptoms -Cont with symptomatic management and OTC analgesics -Declines physical therapy referral at this time. Encouraged to f/up if interested in the future -Follow up precautions reviewed Assessment & Plan (11/13/2023 7:14 PM EDT): -No bowel/bladder incontinence or saddle paresthesia. No radicular symptoms -Cont with symptomatic management and OTC analgesics -Declines muscle relaxants, but did not improvement with prednisone -Follow up precautions reviewed Swelling of both lower extremities 06/29/2023 Overview (06/29/2023): -Chronic -Referred to [facility] Vascular 01/13/23 Primary localized osteoarthritis of knees, bilat eral 07/27/2022 Overview (05/22/2024): XR January 2024: Tricompartmental osteoarthritis in both knees, most pronounced in the lateral compartments, right greater than left. No significant change. - Previously following with [facility] Ortho - [facility] joint injection clinic - last injection 04/06/24 right knee Assessment & Plan (05/22/2024 6:43 PM EDT): DME request for shower chair Assessment & Plan (02/20/2024 6:57 PM EDT): -Received injections at [facility] in the past -Repeat bilateral knee XR -Refer to [facility] for cortisone injections if appropriate pending imaging results Assessment & Plan (07/27/2022 6:51 PM EST): -Received injections at [facility] in the past -Continue with follow with [facility], symptomatic management Routine health maintenance 07/27/2022 Overview (05/22/2024): OPH: Eye exam 07/29/23 at [facility]. No Retinopathy. Pap: 04/12/2019: HPV neg Colonoscopy: Last 2014, due 2019. GI consult scheduled for Jun 2024 Mammo: BIRADS 1 on 03/08/24 DXA: osteopenia Feb 2024 Last PE: 02/18/24 Assessment & Plan (02/20/2024 7:00 PM EDT): -Confirm with [facility] if pt is past due for colonoscopy or due next year. Assessment & Plan (11/13/2023 7:19 PM EDT): Declined COVID vaccine 11/12/23 Assessment & Plan (07/01/2023 9:40 PM EST): -Last eye exam: Mar 2021 at [facility], scheduled Jul 2023 -Pap: 04/12/2019: HPV neg -Colonoscopy: due 10/24/2024 -Mammo: BIRADS 2 on 06/11/21. Ordered 12/15/22. Assessment & Plan (03/25/2023 4:28 PM EDT): -Last eye exam: Mar 2021 at [facility], due -Pap: 04/12/2019: HPV neg -Colonoscopy: due 10/24/2024 -Mammo: BIRADS 2 on 06/11/21. Ordered 12/15/22. Assessment & Plan (12/15/2022 9:50 AM EDT): -Last eye exam: Mar 2021 at [facility], due -Pap: 04/12/2019: HPV neg -Colonoscopy: due 10/24/2024 -Mammo: BIRADS 2 on 06/11/21. Ordered 12/15/22. Assessment & Plan (07/27/2022 6:55 PM EST): -Last eye exam: Mar 2021 at [facility], due -Pap: 04/12/2019: HPV neg -Colonoscopy: due 10/24/2024 -Mammo: BIRADS 2 on 06/11/21 Allergic rhinitis 04/29/2015 Arthritis 04/29/2015 Constipation 04/29/2015 Essential hypertension 04/29/2015 Assessment & Plan (05/22/2024 6:45 PM EDT): -Elevated in office, Well controlled per home readings -Continue current med regimen: hydrochlorothiazide 12.5mg daily lisinopril 40mg daily -Encouraged low salt diet and daily exercise/movement Assessment & Plan (02/18/2024 6:52 AM EDT): -Well controlled -Continue current med regimen: hydrochlorothiazide 12.5mg daily lisinopril 40mg daily -Encouraged low salt diet and daily exercise/movement Assessment & Plan (11/13/2023 7:17 PM EDT): -Well controlled -Continue current med regimen: hydrochlorothiazide 12.5mg daily lisinopril 40mg daily -Encouraged low salt diet and daily exercise/movement Assessment & Plan (06/29/2023 9:25 PM EST): -Well controlled -Continue current med regimen: ?? hydrochlorothiazide 12.5mg daily ?? lisinopril 40mg daily -Encouraged low salt diet and daily exercise when able Assessment & Plan (03/25/2023 4:23 PM EDT): -Well controlled -Continue current med regimen: ?? hydrochlorothiazide 12.5mg daily ?? lisinopril 40mg daily -Encouraged low salt diet and daily exercise when able -BP monitor sent to the pharmacy. Encouraged to check BP value 2-3 times weekly at home. Assessment & Plan (12/15/2022 9:49 AM EDT): -Well controlled -Continue hydrochlorothiazide 12.5mg daily -Continue lisinopril 40mg daily -Encouraged low salt diet and daily exercise when able -Continue checking BP value 2-3 times weekly at home Assessment & Plan (07/27/2022 6:56 PM EST): -Well controlled -Continue hydrochlorothiazide 12.5mg daily -Continue lisinopril 40mg daily -Encouraged low salt diet and daily exercise when able -Continue checking BP value 2-3 times weekly at home Type 2 diabetes mellitus 04/29/2015 Overview (05/22/2024): Lab Results Component Value Date HGBA1C 5.9 05/22/2024 A1c: well controlled Microalbumin: WNL Feb 2023 Eye exam: CEE 07/29/23 at [facility] (Dr. Miranda). No retinopathy. PNA: last 03/18/23 Tdap/Td: last 03/18/23 ACEi/ARB: yes Statin: yes ASA: no Lipids: Lab Results Component Value Date TRIG 108 03/18/2023 CHOL 129 03/18/2023 LDLCHOLCAL 60 03/18/2023 HDL 48 03/18/2023 Lifestyle: Encouraged regular movement and aerobic exercise for improved glycemic control Encouraged daily foot checks Encouraged lean protein snacks and to avoid foods high in sugar and simple carbohydrates Medications: Metformin 1000mg daily Treatment Goals: A1c goal: <8% FBG goal: <130 2 hour post prandial goal: <180 Assessment & Plan (05/22/2024 6:46 PM EDT): A1c very well controlled, plan to decrease to metformin 1000mg daily to decrease pill burden Assessment & Plan (03/25/2023 4:30 PM EDT): A1c: well controlled Lab Results Component Value Date HGBA1C 6.3 (A) 03/18/2023 Microalbumin: pending Eye exam: discuss at follow up Foot exam: discuss at follow up Dental: discuss at follow up PNA: last 03/18/23 Tdap/Td: last 03/18/23 ACEi/ARB: yes Statin: yes ASA: no Lipids: Lab Results Component Value Date CHOLESTEROL 125 02/06/2022 LDLCHOL 55 02/06/2022 TRIG 108 03/18/2023 HDLCHOL 50 02/06/2022 Repeat FLP pending Lifestyle: Encouraged regular movement and aerobic exercise for improved glycemic control Encouraged daily foot checks Encouraged lean protein snacks and to avoid foods high in sugar and simple carbohydrates Medications: ? ? Metformin 1000mg BID Treatment Goals: A1c goal: <8% FBG goal: <130 2 hour post prandial goal: <180 Assessment & Plan (12/15/2022 9:49 AM EDT): -A1c 6.5% On 07/23/22, well controlled -Continue with metformin 500mg BID -Continue with lifestyle interventions Assessment & Plan (07/27/2022 6:53 PM EST): -A1c 6.5% On 07/23/22, well controlled -Continue with metformin 500mg BID -Continue with lifestyle interventions Vitamin D deficiency 04/29/2015 Assessment & Plan (02/20/2024 6:58 PM EDT): - Continues with Vit D 2000 units daily - Recheck Vit D lab order Hyperlipidemia Overview (02/20/2024): Lab Results Component Value Date TRIG 108 03/18/2023 CHOL 129 03/18/2023 LDLCHOLCAL 60 03/18/2023 HDL 48 03/18/2023 Continue simvastatin 20mg nightly Continue lifestyle interventions Resolved Problems Problem Noted Date Diagnosed Date Resolved Date Pure hypercholesterolemia 04/29/2015 Encounters Date Type Department Care Team Description 09/25/2024 1:00 PM EST Office Visit [address] [address] Jennifer Najera MD Screening examination for STI (Primary Dx); At risk for falling 09/25/2024 Patient Outreach [facility] [address] [place] [address] Maria Guadalupe Carrizales FNP Care Coordination (CHW outreach for SDOH food needs-LVM ) 09/25/2024 Patient Outreach [facility] [address] [place] [address] Maria Guadalupe Carrizales FNP 09/25/[address] [facility] [address] [place] [address] Maria Guadalupe Carrizales FNP 09/25/2024 Travel 09/06/[address] [facility] [address] [place] [address] Maria Guadalupe Carrizales FNP 08/15/2024 Telephone [facility] [address] [place] [address] Maria Guadalupe Carrizales FNP July recall from Last 3 Months Immunizations Name Administration Dates Next Due Influenza High-dose Quadriva lent Preservative Free 06/30/2023,05/11/2022,05/12/2021 Influenza Injectable Quadriv alant Preservative Free IIV4 MDCK 04/12/2020 Influenza injectable quadriv alent IIV4 with preservative 04/12/2019,06/06/2018,05/28/2016 Influenza injectable quadriv alent preservative free 04/20/2020,05/19/2017,04/29/2015,09/28 Influenza, High Dose Seasona l, Preservative Free 05/22/2024 Influenza, IIV3, injectable 04/01/2011 Influenza, Split (incl. julius fied surface antigen) 07/04/2013,04/06/2012 Moderna Covid-19 Vaccine 12+ 07/15/2021,10/18/19 21,09/19/2020 Pfizer Covid-19 Vaccine 12+ Bivalent 05/11/2022 Pneumococcal Conjugate PCV 20 03/18/2023 Pneumococcal Polysaccharide PPSV23 04/01/2011 Tdap 03/18/2023,08/25/2012 Zoster, Recombinant 07/22/2021,05/12/2021 Zoster, live 05/28/2016 Family History Medical History Relation Name Comments No Known Problems Brother No Known Problems Daughter Mary No Known Problems Father No Known Problems Father's Brother No Known Problems Father's Sister No Known Problems Maternal Grandfather No Known Problems Maternal Grandmother Diabetes Mother Hypertension Mother No Known Problems Mother's Brother No Known Problems Mother's Sister No Known Problems Other No Known Problems Paternal Grandfather No Known Problems Paternal Grandmother No Known Problems Sister Relation Name Status Comments Brother Daughter Mary Father Father's Brother Father's Sister Maternal Grandfather Maternal Grandmother Mother Mother's Brother Mother's Sister Other Paternal Grandfather Paternal Grandmother Sister Social History Tobacco Use Types Packs/Day Years Used Date Smoking Tobacco: Never Passive Smoke Exposure: Never Smokeless Tobacco: Never Tobacco Cessation:Counseling Given: Not Answered Alcohol Use Standard Drinks/Week Comments Never 0 [...] Orientation Straight 05/25/2022 10 :14 AM EDT Last Filed Vital Signs Vital Sign Reading Time Taken Comments Blood Pressure 121/79 09/25/2024 12:54 PM EST Pulse 79 09/25/2024 12:54 PM EST Temperature 36.3 ??C (97.4 ??F) 05/22/2024 9:09 AM ED T Respiratory Rate 18 09/25/2024 12:54 PM EST Oxygen Saturation 98% 05/22/2024 9:09 AM EDT Inhaled Oxygen Concentration - - Weight 77.8 kg (171 lb 9.6 oz) 09/25/2024 12:54 PM EST Height 161 cm (5' 3.39 ) 09/25/2024 12:54 PM EST Body Mass Index 30.03 09/25/2024 12:54 PM EST Plan of Treatment Upcoming Encounters Date Type Department Care Team ([facility] st Contact Info) Description 10/30/2024 9:15 AM EDT Office Visit [facility] [address] [place] [address] Maria Guadalupe Carrizales, PETER [address] [place] [address] Health Maintenance Due Date Last Done Comments CT Colonography 1955 FIT DNA/Cologuard 1955 FIT 1955 FOBT 1955 Sigmoidoscopy 1955 Diabetes: Foot Exam 1965 Hepatitis C Screening 1973 Colonoscopy 11/01/2019 10/31/2014, 10/31/2014 Colorectal Cancer Screening 11/01/2019 Lipid Panel 03/18/2024 09/25/2024, 02/24, 02/06/2022, Additional history exists Diabetes: Urine Protein Screening 03/23/2024 03/23/2023, 02/06/2022, 04/23/2020 COVID-19 Vaccine ( season) 2024 05/11/2022, 07/15/2021, 10/17/2020, Additional history exists Diabetes: Hemoglobin A1C 11/20/2024 024, 02/18/2024, 11/12/2023, Additional history exists Alcohol/Substance Use Screening 02/17/2025 02/18/2024 Mammogram 03/08/2025 03/08/2024, 01/2020, 05/01/2020, Additional history exists Eye Exam 07/29/2025 07/29/2023 Depression Screening 09/25/2025 09/25/2024, 11/12/19 24 SDOH Screening 09/25/2025 09/25/2024 Tobacco Screening 09/25/2025 09/25/2024 RSV Patients and Patients Aged 60 years or older (1 - 1-dose 75+ series) 2030 DTaP/Tdap/Td Vaccines (3 - Td or Tdap) 03/18/2033 03/18/2023, 08/25/2012 Zoster Vaccines Completed 07/22/2021, 04/25, 05/28/2016 Pneumococcal Vaccine: 50+ Years Completed 03/18/2023, 04/01/2011 Influenza Vaccine Completed 05/22/2024, , 05/11/2022, Additional history exists HIB Vaccines Aged Out No longer eligi ble based on patient's age to complete this topic HPV Vaccines Aged Out No longer eligi ble based on patient's age to complete this topic Hepatitis A Vaccines Aged Out No long er eligible based on patient's age to complete this topic Hepatitis B Vaccines Aged Out No long er eligible based on patient's age to complete this topic IPV Vaccines Aged Out No longer eligi ble based on patient's age to complete this topic Meningococcal Vaccine Aged Out No dameon eula eligible based on patient's age to complete this topic RSV under 20 months Aged Out No longe r eligible based on patient's age to complete this topic Rotavirus Vaccines Aged Out No longer eligible based on patient's age to complete this topic Procedures Procedure Name Priority Date/Time Associated Diagnosis Comments VITAMIN D,25-OH,TOTAL,IA Routine 09/25/2024 2:14 PM EST At risk for falling CBC WITH AUTO DIFFERENTIAL Routine 09/25/2024 2:14 PM EST Routine health maintenance COMPREHENSIVE METABOLIC PANEL Routine 09/25/2024 2:14 PM EST Routine health maintenance TSH W/REFLEX TO FT4 Routine 09/25/2024 2 :14 PM EST Routine health maintenance LIPID PANEL, STANDARD Routine 09/25/2024 2:14 PM EST Routine health maintenance POCT GLYCATED HEMOGLOBIN, TOTAL Routine 05/22/2024 9:14 AM EDT Type 2 diabetes mellitus without complication, without long-term current use of insulin (CMS/HCC) BI MAMMOGRAM SCREENING TOMOSYNTHESIS BILATERAL Routine 03/08/2024 8:20 AM EDT Screening mammogram for breast cancer DIABETES EYE EXAM Routine 07/29/2023 11:08 AM EST ALBUMIN, RANDOM URINE W/CREATININE Routine 03/23/2023 1:11 PM EDT Type 2 diabetes mellitus without complication, without long-term current use of insulin (CMS/HCC) COLONOSCOPY Routine 10/31/2014 from Last 3 Months or Most Recently Relevant to Health Maintenance Results * Vitamin D, 25-Hydroxy, Total, Immunoassay (09/25/2024 2:14 PM EST) Vitamin D 25-OH Total 56.4 >30 ng/mL [facility] Comment:Health Based Referen ce Values*< 20 ng/mL Reqnedmlc77-63 ng/mL Insufficient> 30 ng/mL Sufficient*Melissa COLE. N Engl J Med. 2007;357:266-280Care must be taken in interpreting Vitamin D results fromdifferent laboratories and methodologies. Published datademonstrated that results from patients undergoinghemodialysis may show a negative bias when tested withvarious automated 25-OH vitamin D assays when compared toLC-MS/MS.When testing samples from patients whose predominant form ofVitamin D is Vitamin D2, such as patients receiving VitaminD2 supplementation, results that are subtherapeutic shouldbe confirmed with another method such as LC-MS/MS. Blood Venous blood specimen / Unknown 09/25/2024 2:14 PM EST 09/25/2024 4:20 PM EST Jennifer Najera MD LAB BLOOD ORDERABLES Final R esult Performing Organization Address [facility] Co de Phone Number [facility] [address] [place] [phone] * TSH with Reflex to Free T4 (09/25/2024 2:14 PM EST) TSH reflex Free T4 0.43 0.32 - 4.0 uIU/mL [facility] Blood 09/25/2024 2:14 PM EST 09/25/2024 4:20 PM EST Maria Guadalupe GREEN LAB BLOOD ORDERABLES Final Res ult Performing Organization Address [facility] Co de Phone Number [facility] [address] [place] [phone] * (ABNORMAL) CBC auto differential (09/25/2024 2:14 PM EST) White Blood Count 8.8 4.8 - 10.8 X10*3/uL [facility] Red Blood Count 4.10(L) 4.20 - 5.50 X10*6/uL [facility] Hemoglobin 11.8(L) 12.0 - 16.0 g/dl [facility] Hematocrit 37.1 37.0 - 47.0 % [facility] Mean Corpuscular Volume 90.5 80.0 - 98.0 fL [facility] Mean Corpuscular Hemoglobin 28.8 27.0 - 33.0 pg [facility] Mean Corpuscular HGB Conc 31.8 31.0 - 35.0 g/dl [facility] Red Cell Distribution Width 13.3 11.0 - 16.0 % [facility] Platelet Count 414(H) 160 - 400 X10*3/uL [facility] Mean Platelet Volume 10.4 9.4 - 12.3 fL [facility] Neutrophils Percent Auto 50.2 45 - 73 % [facility] Imm Gran Pct Auto 0.5(H) 0.0 - 0.4 % [facility] Lymphocytes Percent Auto 40.5(H) 20 - 40 % [facility] Monocytes Percent Auto 5.5 2 - 11 % [facility] Eosinophils Percent Auto 2.7 0 - 4 % [facility] Basophils Percent Auto 0.6 0 - 2 % [facility] NRBC Pct Auto 0.0 0.0 - 0.2 /100WBC [facility] Neutrophils Absolute Auto 4.4 2.0 - 8.3 x10*3/uL [facility] Imm Gran Abs Auto 0.04(H) 0.00 - 0.03 X10*3/uL [facility] Lymphocytes Absolute Auto 3.6 1.2 - 4.9 X10*3/uL [facility] Monocytes Absolute Auto 0.5 0.1 - 1.2 X10*3/uL [facility] Eosinophils Absolute Auto 0.2 0.0 - 0.4 X10*3/uL [facility] Basophils Absolute Auto 0.1 0.0 - 0.2 X10*3/uL [facility] NRBC Abs Auto 0.000 0.0 - 0.012 X10*3/uL [facility] Blood Venous blood specimen / Unknown 09/25/2024 2:14 PM EST 09/25/2024 4:20 PM EST us Maria Guadalupe Carrizales [facility] LAB BLOOD ORDERABLES Final Res ult Performing Organization Address [facility] Co de Phone Number [facility] [address] [place] [address] [phone] * Lipid Panel, Standard (09/25/2024 2:14 PM EST) Triglycerides 96 <150 mg/dL [facility] Comment:Desirable Triglyceri de: less than 150 mg/dLBorderline High Triglyceride 150-199 mg/dLHigh Triglyceride: 200-499 mg/dLVery High Triglyceride: greater than or equal to 5OO mg/dL Cholesterol 132 <200 mg/dL [facility] Comment:Desirable Cholestero l: less than 200 mg/dLBorderline High Cholesterol: 200-239 mg/dLHigh Cholesterol: greater than 239 mg/dL LDL Cholesterol Calculated 64 <100 mg/dL [facility] Comment:Desirable LDL: less than 100 mg/dLNear Optimal/Above Optimal LDL: 110- 129 mg/dLBorderline High LDL: 130-159 mg/dLHigh LDL: 160-189 mg/dLVery High LDL: greater than or equal to 190 mg/dL HDL Cholesterol 49 >40 mg/dL [facility] Comment:Desirable HDL: great er than 40 mg/dL Note: This HDL assay may give artificially low results in patients with liver disease. Blood Venous blood specimen / Unknown 09/25/2024 2:14 PM EST 09/25/2024 4:20 PM EST Maria Guadalupe Carrizales [facility] BLOOD ORDERABLES Final Res ult Performing Organization Address [facility]/ZIP Co de Phone Number [facility] [address] [place] [address] [phone] * (ABNORMAL) Comprehensive Metabolic Panel (09/25/2024 2:14 PM EST) Sodium 143 135 - 145 mmol/L [facility] Potassium 3.8 3.3 - 5.1 mmol/L [facility] Chloride 104 96 - 108 mmol/L [facility] Carbon Dioxide 32(H) 22 - 29 mmol/L [facility] Anion Gap 11(L) 12 - 20 [facility] Urea Nitrogen (BUN) 12 9 - 16 mg/dL [facility] Creatinine, Serum 0.89 0.5 - 1.4 mg/dL [facility] Estimated Glomerular Filt Rate >60 [facility] Comment:Chronic Kidney Disea se: Estimated GFR < 60 mL/min/[id number] Kidney Disease: Estimated GFR < 15 mL/min/1.73m2 Glucose 115 60 - 115 mg/dL [facility] Calcium 9.7 8.4 - 10.2 mg/dL [facility] Bilirubin, Total 0.2 0.0 - 1.0 mg/dL [facility] Aspartate Amino Transferase 21 5 - 31 U/L [facility] Alanine Aminotransferase 18 0 - 31 U/L [facility] Total Protein 7.6 6.5 - 8.0 g/dL [facility] Albumin Level 4.1 3.5 - 5.0 g/dL [facility] Alkaline Phosphatase 79 39 - 117 U/L [facility] Blood Venous blood specimen / Unknown 09/25/2024 2:14 PM EST 09/25/2024 4:20 PM EST Maria Guadalupe GREEN LAB BLOOD ORDERABLES Final Res ult [facility] [address] [place] [address] [phone] * POCT HGB A1C (05/22/2024 9:14 AM EDT) Hemoglobin A1C 5.9 4.0 - 6.0 % QC Media Lot # [id number] Lot# Expiration Date Blood 05/22/2024 9:14 AM EDT us Maria Guadalupe Carrizales [employer] [employer] POINT OF CARE TEST ENTER/EDIT ORDERABLES Final Result * BI Mammogram Screening Tomosynthesis Bilateral (03/08/2024 8:20 AM EDT) Anatomical Region Laterality Modality Breast Bilateral Mammography 03/08/2024 8:20 AM EDT Narrative 03/30/2024 4:21 PM EDT ? [facility] ? [address] ?[place] [address] ? Mammography Report ? Signed ? Patient: Renate Barnes L ?MR#: [id number] ?? [id number] ? : 1955 ?Acct:[id number] ? Age/Sex: 68 / F ?ADM Date: 03/08/24 ? Loc: HO.MAMMO ? Attending Dr: Maria Guadalupe Carrizales [employer] [employer] ? Ordering Physician: Maria Guadalupe Carrizales [employer] [employer] ?Results: 1Negat ?? kim ? Date of Service: 03/08/24 ?Follow Up: 1 Year From Orig ?? inal Mammogram ? Procedure(s): MM tomosynthesis screening BI ?? Accession Number(s): [id number] ? cc: Maria Guadalupe Carrizales [employer] [employer] ? EXAMINATION: ?? MM SCREENING DIGITAL BREAST TOMOSYNTHESIS, BILATERAL ? CLINICAL INFORMATION: ? Screening. Asymptomatic. ? COMPARISON: ?? Mammography: This study is compared with prior exams dating back to ? 2017. ? TECHNIQUE: ?? Digital breast tomosynthesis is performed in both the craniocaudal and ?? mediolateral oblique views along with computer-aided detection (CAD). ? Synthesized 2D images are generated from the tomosynthesis. ? FINDINGS: ?? There are scattered areas of fibroglandular density (ACR BI-RADS breast ?? composition Category b). ? There are no significant masses, abnormal calcifications, or other ?? abnormalities. ? MM/MM tomosynthesis screening BI ?? IMPRESSION: ?? No mammographic evidence of malignancy. ? ASSESSMENT: ? BI-RADS BI-RADS 1 - Negative ? RECOMMENDATION: ?? Routine annual mammography screening. ? 1 year F/U ? This examination should not preclude the clinical evaluation of a ?? suspicious palpable abnormality. ? This patient's information was entered into a reminder system with a ?? target due date for their next mammogram. ? Electronically signed by: ??Tamara Goode MD ??03/30/2024 04:18 PM EDT RP ? Dictated By: ?Tamara Goode MD ? Signed By: ?<Electronically signed by Tamara Goode MD in OV> ? 03/30/24 1618 ? DD/ 0820 ? TD/TT: 03/08/24 0857 ? Interior Design Faculty Member: ? Procedure Note Katrina Tang - 03/30/2024 [facility] [address] [place] [address] Mammography Report Signed Patient: Renate Barnes LMR#: [id number] : 5Acct:[id number] Age/Sex: 68 / FADM Date: 03/08/24 Loc: HO.MAMMO Attending Dr: Maria Guadalupe Carrizales MALTHOUSE LABORER Ordering Physician: Maria Guadalupe Carrizales FNPResults: 1Negat kim Date of Service: 03/08/24Follow Up: 1 Year From Orig inal Mammogram Procedure(s): MM tomosynthesis screening BI Accession Number(s): [id number] cc: Maria Guadalupe Carrizales MALTHOUSE LABORER EXAMINATION: MM SCREENING DIGITAL BREAST TOMOSYNTHESIS, BILATERAL CLINICAL INFORMATION: Screening. Asymptomatic. COMPARISON: Mammography: This study is compared with prior exams dating back to 2017. TECHNIQUE: Digital breast tomosynthesis is performed in both the craniocaudal and mediolateral oblique views along with computer-aided detection (CAD). Synthesized 2D images are generated from the tomosynthesis. FINDINGS: There are scattered areas of fibroglandular density (ACR BI-RADS breast composition Category b). There are no significant masses, abnormal calcifications, or other abnormalities. MM/MM tomosynthesis screening BI IMPRESSION: No mammographic evidence of malignancy. ASSESSMENT: BI-RADS BI-RADS 1 - Negative RECOMMENDATION: Routine annual mammography screening. 1 year F/U This examination should not preclude the clinical evaluation of a suspicious palpable abnormality. This patient's information was entered into a reminder system with a target due date for their next mammogram. Electronically signed by: Tamara Goode MD 03/30/2024 04:18 PM EDT Dictated By: Tamara Goode MD Signed By: <Electronically signed by Tamara Goode MD in OV> 03/30/24 1618 DD/ 0820 TD/TT: 03/08/24 0857 Interior Design Faculty Member: Maria Guadalupe MCGARRYP IMG BI PROCEDURES Final Result * Diabetes Eye Exam (07/29/2023 11:08 AM EST) Historical Provider HEALTH MAINTENANCE Final Result * Albumin, Random Urine W/Creatinine (03/23/2023 1:11 PM EDT) Creatinine, Urine 179.62 mg/dL [facility] Microalbumin Urine 51.0 mg/L [facility] Microalbum Creatinine Ratio Ur 28.3 <30 ug/mg cr [facility] Comment:Albumin/Creatinine R atio Reference Ranges: Normal: < 30 ug/mg creatinine Microalbuminuria: 30 - 300 ug/mg creatinineClinical Albuminuria: > 300 ug/mg creatinine Urine 03/23/2023 1:11 PM EDT 03/23/2023 4:19 PM EDT Maria Guadalupe All MALTHOUSE LABORER LAB URINE ORDERABLES Final Res ult [facility] [address] [place] [address] [phone] * Colonoscopy (10/31/2014) Colonoscopy Normal Normal Narrative Javon Barnesba - 10/31/2014 Tubular adenoma Historical Provider HEALTH MAINTENANCE Final Result from Last 3 Months or Most Recently Relevant to Health Maintenance Insurance MEDICARE [facility] ST[facility]ARD Care Teams Manager Business Development Hospice Relationship Specialty Start Date End Date Maria Guadalupe Carrizales FNP [address] [place] [address] PCP - General Family Medicine 03/24/22 Paramjit Iglesias MD [address] [place] [address] Gastroenterology 09/18/24
--- OUTSIDE RECORDS SUMMARY | 2024-09-25 17:01 | XMS_ITS | Encounter Summary ---
Author Organization [employer] [facility] Address [address] [place] [address] 7t [place] [address] Care Team Providers Care Action Installer Name Role Phone Maria Guadalupe Carrizales Primary Care Provider [phone] Paramjit Iglesias MD Unavailable [phone] Encounter Details Date Type Department Care Team (Late st Contact Info) Description 07/07/2022 Abstract [facility] [address] [place] [address] ProviderDylon MD Social History Tobacco Use Types Packs/Day Years Used Date Smoking Tobacco: Never Assessed Comments Unknown Sex and Gender Information Value [...] Description 10/30/2024 9:15 AM EDT Office Visit [facility] [address] [place] [address] Maria Guadalupe Carrizales FNP [address] [place] [address] documented as of this encounter Visit Diagnoses Not on filedocumented in this encounter Care Teams Action Installer Relationship Specialty Start Date End Date Maria Guadalupe Carrizales FNP [address] [place] [address] PCP - General Family Medicine 03/24/22 Paramjit Iglesias MD [address] [place] [address] Gastroenterology 09/18/24 documented as of this encounter
--- OUTSIDE RECORDS SUMMARY | 2024-09-25 17:01 | XMS_ITS | Encounter Summary ---
Author Organization [employer] Address [address] 7[address] [place] [address] Care Team Providers Care Alum Operator Name Role Phone Maria Guadalupe Carrizales PETER Primary Care Provider [phone] Paramjit Iglesias MD Unavailable [phone] Encounter Details Date Type Department Care Team (Late st Contact Info) Description 06/10/2023 Abstract [facility] [address] [place], [place] [phone] Joy Barnes Social History Tobacco Use Types Packs/Day Years Used Date Smoking Tobacco: Never Smokeless Tobacco: Never Alcohol Use Standard Drinks/Week Comments Never 0 (1 standard drink = 0.6 oz pur e alcohol) Depression Answer Date Recorded Patient Health Questionnaire-9 Score 2 12/15/2022 Housing Stability Answer Date Recorded What is [...] Answer Date Recorded Patient Health Questionnaire-2 Score 1 12/15/2022 Comments Unknown Sex and Gender Information Value [...] Description 10/30/2024 9:15 AM EDT Office Visit [facility] [address] [place] [address] Maria Guadalupe Carrizales FNP [address] [place] [address] documented as of this encounter Procedures Procedure Name Priority Date/Time Associated Diagnosis Comments COLONOSCOPY Routine 10/31/2014 documented in this encounter Results * Colonoscopy (10/31/2014) Colonoscopy Normal Normal Narrative Joy Barnes - 10/31/2014 Tubular adenoma us Historical Provider HEALTH MAINTENANCE Final Result documented in this encounter Visit Diagnoses Not on filedocumented in this encounter Additional Health Concerns Assessment Noted Time PHQ-9 Depression Total Score: 2 12/16/19 23 9:21 AM EDT documented as of this encounter Care Teams Alum Operator Relationship Specialty Start Date End Date Maria Guadalupe Carrizales FNP [address] [place] [address] PCP - General Family Medicine 03/24/22 Paramjit Iglesias MD [address] [place] [address] Gastroenterology 09/18/24 documented as of this encounter
--- OUTSIDE RECORDS SUMMARY | 2024-09-25 17:01 | XMS_ITS | Encounter Summary ---
Author Organization [employer] Address [address] 7[address] [place] [address] Care Team Providers Care Clothes Marker Name Role Phone PamelaMaria Guadalupe musa PETER Primary Care Provider [phone] Paramjit Iglesias MD Unavailable [phone] Encounter Details Date Type Department Care Team (Late st Contact Info) Description 03/22/2024 Orders Only [facility] [address] [place], [place] [phone] ProviderDylon MD Social History Tobacco Use Types [...] Description 10/30/2024 9:15 AM EDT Office Visit [facility] PED[facility] [address] [place] [address] Maria Guadalupe Carrizales FNP [address] [place] [address] documented as of this encounter Procedures Procedure Name Priority Date/Time Associated Diagnosis Comments DIABETES EYE EXAM Routine 07/29/2023 11:08 AM EST documented in this encounter Results * Diabetes Eye Exam (07/29/2023 11:08 AM EST) Historical Provider HEALTH MAINTENANCE Final Result documented in this encounter Visit Diagnoses Not on filedocumented in this encounter Additional Health Concerns Assessment Noted Time PHQ-9 Depression Total Score: 0 11/12/19 24 8:48 AM EDT documented as of this encounter Care Teams Clothes Marker Relationship Specialty Start Date End Date Maria Guadalupe Carrizales FNP [address] [place] [address] PCP - General Family Medicine 03/24/22 Paramjit Iglesias MD [address] [place] [address] Gastroenterology 09/18/24 documented as of this encounter
--- OUTSIDE RECORDS SUMMARY | 2024-09-25 17:01 | XMS_ITS | Encounter Summary ---
Author Organization [employer] Address [address] [facility] 7[address] [place] [address] Care Team Providers Care Bottom Stainer Name Role Phone Maria Guadalupe Carrizales Primary Care Provider [phone] Paramjit Iglesias MD Unavailable [phone] Encounter Details Date Type Department Care Team ([facility] st Contact Info) Description 09/25/2024 Patient Outreach [facility] [address] [place], [place] [phone] Maria Guadalupe Carrizales FNP [address] [place], [place] [phone] Social History Tobacco Use Types Packs/Day Years [...] the past 12 months, has t he [employer], gas, oil or water company threatened to [...] Description 10/30/2024 9:15 AM EDT Office Visit [facility] [address] [place] [address] Maria Guadalupe Carrizales FNP [address] [place] [address] documented as of this encounter Visit Diagnoses Not on filedocumented in this encounter Additional Health Concerns Assessment Noted Time PHQ-9 Depression Total Score: 0 11/12/19 24 8:48 AM EDT documented as of this encounter Care Teams Bottom Stainer Relationship Specialty Start Date End Date Maria Guadalupe Carrizales FNP [address] [place] [address] PCP - General Family Medicine 03/24/22 Paramjit Iglesias MD [address] [place] [address] Gastroenterology 09/18/24 documented as of this encounter
--- OUTSIDE RECORDS SUMMARY | 2024-09-25 17:01 | XMS_ITS | Encounter Summary ---
Author Organization [employer] Address [address] 7[address] [place] [address] Care Team Providers Care Flour Tester Name Role Phone Maria Guadalupe Carrizales PETER Primary Care Provider [phone] Paramjit Iglesias MD Unavailable [phone] Encounter Details Date Type Department Care Team (Late st Contact Info) Description 08/27/2023 Orders Only [facility] [address] [place], [place] [phone] Armin Melara MD [address] [place], [place] [phone] Acute left-sided low back pain without sciatica (Primary Dx) Social History Tobacco Use Types Packs/Day Years [...] Description 10/30/2024 9:15 AM EDT Office Visit [facility] MED [facility] PED[facility] [address] [place] [address] Maria Guadalupe Carrizales FNP [address] [place] [address] documented as of this encounter Visit Diagnoses Diagnosis Acute left-sided low back pain without sciatica- Primary documented in this encounter Additional Health Concerns Assessment Noted Time PHQ-9 Depression Total Score: 2 12/16/19 9:21 AM EDT documented as of this encounter Care Teams Flour Tester Relationship Specialty Start Date End Date Maria Guadalupe Carrizales FNP [address] [place] [address] PCP - General Family Medicine 03/24/22 Paramjit Iglesias MD [address] [place] [address] Gastroenterology 09/18/24 documented as of this encounter
--- OUTSIDE RECORDS SUMMARY | 2024-09-25 17:01 | XMS_ITS | Encounter Summary ---
Author Organization [employer] Address [address] [place] [address] Care Team Providers Care Multi Punch Operator Name Role Phone Maria Guadalupe Carrizales PETER Primary Care Provider [phone] Paramjit Iglesias MD Unavailable [phone] Reason for Visit * Reason Comments AWV Encounter Details Date Type Department Care Team ([facility] st Contact Info) Description 09/25/2024 1:00 PM EST Office Visit [facility] [address] [place], [place] [phone] Jennifer Najera MD [address] [place] [address] Screening examination for STI (Primary Dx); At risk for falling Social History Tobacco Use Types Packs/Day Years [...] AM EDT documented as of this encounter Last Filed Vital Signs Vital Sign Reading Time Taken Comments Blood Pressure 121/79 09/25/2024 12:54 PM EST Pulse 79 09/25/2024 12:54 PM EST Temperature - - Respiratory Rate 18 09/25/2024 12:54 PM EST Oxygen Saturation - - Inhaled Oxygen Concentration - - Weight 77.8 kg (171 lb 9.6 oz) 09/25/2024 12:54 PM EST Height 161 cm (5' 3.39 ) 09/25/2024 12:54 PM EST Body Mass Index 30.03 09/25/2024 12:54 PM EST documented in this encounter Progress Notes * Jennifer Najera MD - 09/25/2024 1:00 PM EST Subjective Patient ID: Renate Barnes is a 69 y.o. year old female who presents today for Medicare Annual Wellness Visit. Preferred language for medical information: Australian Objective Vitals: 09/25/24 1254 BP: 121/79 BP Location: Left arm Patient Position: Sitting BP Cuff Size: Adult Pulse: 79 Resp: 18 Weight: 171 lb 9.6 oz (77.8 kg) Height: 5' 3.39 (1.61 m) Hearing Screening 1000Hz 2000Hz 4000Hz Right ear 20 25 20 Left ear 20 25 20 No Known Allergies Current Outpatient Medications: Blood Pressure Monitor kit, Check BP daily and when symptomatic, Disp: 1 kit, Rfl: 0 cholecalciferol VITAMIN D (Vitamin D-3) 50 MCG (2000 UT) tablet, TAKE 1 TABLET BY MOUTH EVERY MORNING, Disp: 90 tablet, Rfl: 1 glucose blood (FREESTYLE LITE) test strip, 1 strip at bed time. (Patient taking differently: 1 strip at bed time. Pt states taking sometimes ), Disp: , Rfl: hydroCHLOROthiazide 12.5 MG tablet, Take 1 tablet (12.5 mg) by mouth in the morning., Disp: 90 tablet, Rfl: 3 ibuprofen 400 MG tablet, TAKE 1 TO 2 TABLETS BY MOUTH EVERY 8 HOURS NEEDED, Disp: 100 tablet, Rfl: 0 lisinopril 40 MG tablet, Take 1 tablet (40 mg) by mouth Once per day., Disp: 90 tablet, Rfl: 3 metFORMIN (Glucophage) 500 MG tablet, TAKE 2 TABLETS BY MOUTH ONCE DAILY, Disp: 180 tablet, Rfl: 3 simvastatin (Zocor) 20 MG tablet, Take 1 tablet (20 mg) by mouth in the evening. (For cholesterol),Disp: 90 tablet, Rfl: 3 calcium carbonate (Calcium 600) 600 MG tablet, Take 1 tablet (600 mg) by mouth Once per day. (Patient not taking: Reported on 09/25/2024), Disp: 90 tablet, Rfl: 3 Diclofenac Sodium 1 % gel, Use 3-4 times daily as needed for knee pain (Patient not taking: Reported on 09/25/2024), Disp: 50 g, Rfl: 1 Immunization History Administered Date(s) Administered Influenza High-dose Quadrivalent Preservative Free 05/12/2021, 05/11/2022, 06/30/2023 Influenza Injectable Quadrivalant Preservative Free IIV4 MDCK 04/12/2020 Influenza injectable quadrivalent IIV4 with preservative 05/28/2016, 06/06/2018, 04/12/2019 Influenza injectable quadrivalent preservative free 09/28/2014, 04/29/2015, 05/19/2017, 04/20/2020 Influenza, High Dose Seasonal, Preservative Free 05/22/2024 Influenza, IIV3, injectable 04/01/2011 Influenza, Split (incl. purified surface antigen) 04/06/2012, 07/04/2013 Moderna Covid-19 Vaccine 12+ 09/19/2020, 10/17/2020, 07/15/2021 Pfizer Covid-19 Vaccine 12+ Bivalent 05/11/2022 Pneumococcal Conjugate PCV 20 03/18/2023 Pneumococcal Polysaccharide PPSV23 04/01/2011 Tdap 08/25/2012, 03/18/2023 Zoster, Recombinant 05/12/2021, 07/22/2021 Zoster, live 05/28/2016 Past Medical History: Diagnosis Date Allergic rhinitis Arthritis Essential (primary) hypertension Hyperlipidemia Mild intermittent asthma Type 2 diabetes mellitus (CMS/HCC) History reviewed. No pertinent surgical history. Family History Problem Relation Name Age of Onset Diabetes Mother Hypertension Mother No Known Problems Father No Known Problems Sister No Known Problems Brother No Known Problems Daughter Mary No Known Problems Mother's Sister No Known Problems Mother's Brother No Known Problems Father's Sister No Known Problems Father's Brother No Known Problems Maternal Grandmother No Known Problems Maternal Grandfather No Known Problems Paternal Grandmother No Known Problems Paternal Grandfather No Known Problems Other Social History Tobacco Use Smoking Status Never Passive exposure: Never Smokeless Tobacco Never Patient Health Questionnaire-9 Score: 0 (11/12/2023 8:48 AM) Patient Health Questionnaire-2 Score: 2 (09/25/2024 1:08 PM) Thoughts that you would be better off or hurting yourself in some way: Not at all (09/25/2024 1:08 PM) SBIRT - Alcohol How many times in the past year have you had 5 or more (for men) or 4 or more (for women) drinks fabricio day?: None Score: 0 Social Drivers of Health Tobacco Use: Low Risk (09/25/2024) Tobacco Smoking Tobacco Use: Never Smokeless Tobacco Use: Never Passive Exposure: Never Alcohol Use: Not on file (02/18/2024) Food Insecurity: High Risk (09/25/2024) Food Insecurity Within the past 12 months, you worried that your food would run out before you got money to buy more:: Sometimes True Within the past 12 months,the food you bought just didn't last and you didn't have enough money to get more: : Sometimes True Transportation Needs: High Risk (09/25/2024) Transportation In the past 12 months, has lack of transportation kept you from medical appts, meetings, work or from getting things needed for daily living? : Yes, it has kept me from medical appointments or getting medications. Intimate Partner Violence: Not on file Depression: Not at risk (09/25/2024) Depression PHQ-2 Score: 2 Housing Stability: Low Risk (09/25/2024) Housing Stability What is your housing situation today?: I have housing today, but I am worried about losing housing in the future Think about the place you live. Do you have problems with any of the following? : None of the above Utilities: Low Risk (05/16/2023) Utilities In the past 12 months, has the electric, gas, oil or water [employer] threatened to shut off services in your home? : No Internet Access: High Risk (03/24/2024) Internet Access Internet Access Q1: No Internet Access Q2: I do not want or need it Cognitive Assessment (Mini-Cog): [x] Normal [] Abnormal Three Word Recall: 3 out of 3 Clock Drawin out of 2 Total Score: 5 out of 5 Mini-Cog sheet to be scanned into chart. Functional Assessment: Activities of Daily Living (Byrd ADL) Bathing: dependant Dressing: independent Toileting: independent Transferring: independent Continence: independent Feeding: independent MARBLE HELPER: No - Pt is interested in MARBLE HELPER Services and screening positive for SDOH needs will forward to Care Management for follow-up Fall Risk Assessment: [] Low risk [x] High risk Feels unsteady when standing or walking? Yes Worries about falling? Yes Has fallen in past year? No Number of falls? N/A TUG completed: Yes Score: 18.33 seconds Pt reports dizziness during TUG Assessment new VS: 1330pm 98/66 LA Sitting P- 79 R- 18RA O2 - 99RA Pt is offered to be brought to walk-in clinic but declines at this time. Pt states that she was seen in the ED last month and was told that her auditory bones are not in the proper place which is causing the dizziness. RN reviews ED precautions and also the importance of changing positions slowly, and increasing water intake (pt reports she does not drink adequate water throughout the day) Patient Care Team: PETER Pulliam as PCP - General (Family Medicine) Paramjit Iglesias MD (Gastroenterology) Advance Care Planning: Patient's current capacity: Full capacity Agent(s): Health Care Proxy paperwork is incomplete. [place] [facility]ust[facility] ([facility]ST) is incomplete. Code Status: Assume Full Assessment/Plan Health Maintenance Topic Date Due Diabetes: Foot Exam Never done Hepatitis C Screening Never done Colorectal Cancer Screening 11/01/2019 Lipid Panel 03/18/2024 Diabetes: Urine Protein Screening 03/23/2024 COVID-19 Vaccine ( season) 2024 Diabetes: Hemoglobin A1C 11/20/2024 Alcohol/Substance Use Screening 02/17/2025 Mammogram 03/08/2025 Eye Exam 07/29/2025 Depression Screening 09/25/2025 Tobacco Screening 09/25/2025 SDOH Screening 09/25/2025 RSV Patients and Patients Aged 60 years or older (1 - 1-dose 75+ series) 2030 DTaP/Tdap/Td Vaccines (3 - Td or Tdap) 03/18/2033 Influenza Vaccine Completed Pneumococcal Vaccine: 50+ Years Completed Zoster Vaccines Completed RSV under 20 months Aged Out HIB Vaccines Aged Out Hepatitis B Vaccines Aged Out IPV Vaccines Aged Out Hepatitis A Vaccines Aged Out Meningococcal Vaccine Aged Out Rotavirus Vaccines Aged Out HPV Vaccines Aged Out Patient refused the following health maintenance recommendations: COVID19 Vaccine Problem List Items Addressed This Visit None Counseling/Education [x] Lung Cancer Screening Form Completed N/A [x] Self Reported Health Status Completed Yes [x] Print After Visit Summary (AVS) [x] Advance directives handout provided [x] Schedule a visit to complete MOLST [x] Fall risk identified: [x] Work on strength/balance [x] Stay hydrated [] Start daily vitamin D supplement [x] Reduce home hazards (handout provided) [] High risk medications identified - schedule FU with PCP to discuss [x] Follow-up with PCP Yes 10/30 @ 9:15am to discuss MOLST No follow-ups on file. Edel Del Toro JENNIFER I, Jennifer Najera, have met with the patient, reviewed the RN note and agree with the assessment & plan of care as documented above. Summary and recommendations: Patient declined COVID vaccine today. Labwork ordered: Hep B titer, vitamin D. SDOH referral made due to possible food insecurity. Follow up with PCP on 10/30 to discuss MOLST. At PCP visit, check status of vertigo (?BPV). Consider vestibular PT. Jennifer Najera MD documented in this encounter Plan of Treatment Upcoming Encounters Date Type Department Care Team (Late st Contact Info) Description 10/30/2024 9:15 AM EDT Office Visit [facility] MED [facility]ED[facility] [address] [place], [place] [phone] Maria Guadalupe Carrizales, CATHODE WASHER [address] [place], [place] [phone] Scheduled Orders Name Type Priority Associated Diagnoses Orde r Schedule Hepatitis B Core Antibody, Total Lab Routine Screening examination for STI Expected: 09/25/2024 (Approximate), Expires: 09/25/2025 documented as of this encounter Procedures Procedure Name Priority Date/Time Associated Diagnosis Comments VITAMIN D,25-OH,TOTAL,IA Routine 09/25/2024 2:14 PM EST At risk for falling documented in this encounter Results * Vitamin D, 25-Hydroxy, Total, Immunoassay (09/25/2024 2:14 PM EST) Vitamin D 25-OH Total 56.4 >30 ng/mL [facility] Comment:Health Based Referen ce Values*< 20 ng/mL [id number] ng/mL Insufficient> 30 ng/mL Sufficient*Melissa COLE. N [...] MD LAB BLOOD ORDERABLES Final R esult [facility] [address] [place] [address] [phone] documented in this encounter Visit Diagnoses Diagnosis Screening examination for STI- Primary At risk for falling Personal history of fall documented in this encounter Additional Health Concerns Assessment Noted Time PHQ-9 Depression Total Score: 0 11/12/19 24 8:48 AM EDT documented as of this encounter Care Teams Multi Punch Operator Relationship Specialty Start Date End Date Maria Guadalupe Carrizales FNP [address] [place] [address] PCP - General Family Medicine 03/24/22 Paramjit Iglesias MD [address] [place] [phone] Gastroenterology 09/18/24 documented as of this encounter
--- OUTSIDE RECORDS SUMMARY | 2024-09-25 17:01 | XMS_ITS | Encounter Summary ---
Author Organization [employer] Address [address] [place] [address] Care Team Providers Care Iron Worker Apprentice Name Role Phone Maria Guadalupe Carrizales Primary Care Provider [phone] Encounter Details Date Type Department Care Team (Late st Contact Info) Description 09/06/2024 Telephone [facility] MEDICINE [address] [place] [address] Maria Guadalupe Carrizales FNP [address] [place], [place] [phone] Social History Tobacco Use Types Packs/Day Years [...] encounter Miscellaneous Notes * Telephone Encounter - Radhika Lau - 09/06/2024 1:24 PM EST Placed outbound call to patient for Annual Wellness Visit outreach. Patient's name and were confirmed. Patient educated on the purpose of Medicare Annual Wellness Visits and is agreeable to an appointment with provider. Insurance verified prior to scheduling. Patient scheduled for AWV appointment on 09/25/24 at 1 PM with Edel Patient advised to bring to appointment a photo id and insurance card. Also advised to bring in all medications, including [id number], vitamins, or supplements andany copies of Advance Directives and Health Care Proxy forms. Patient provided with education on contacting the Health Center with any questions or concerns prior to the scheduled appointment. Patient provided with after-hours line for [facility], , which offer night time triage service and option to transfer to business functional analyst provider if needed. Location confirmed. documented in this encounter Plan of Treatment Upcoming Encounters Date Type Department Care Team ([facility] st Contact Info) Description 10/30/2024 9:15 AM EDT Office Visit [facility] MED & PEDS [address] [place] [address] Maria Guadalupe Carrizales FNP [address] [place] [address] documented as of this encounter Visit Diagnoses Not on filedocumented in this encounter Additional Health Concerns Assessment Noted Time PHQ-9 Depression Total Score: 0 11/12/19 24 8:48 AM EDT documented as of this encounter Care Teams Iron Worker Apprentice Relationship Specialty Start Date End Date Maria Guadalupe Carrizales FNP [address] [place] [address] PCP - General Family Medicine 03/24/22 documented as of this encounter
[2024-09-25 17:11] LABS: Creatinine Urine 111.18 mg/dL; Microalbum/Creatinine Ratio Ur 18.8 ug/mg cr (<30)
[2024-09-25 17:43] LABS: Vitamin B12 168 pg/mL (200-900)
[2024-09-26 08:30] LABS: HIV AB/AG Nonreactive (Nonreactive); HIV Num 1 0.08 S/CO (0.00-0.99)
[2024-09-26 08:32] LABS: HBc Num1 0.08 S/CO (0.00-0.79); Hepatitis B Core Antibody Nonreactive (Nonreactive)
[2024-09-26 13:58] LABS: RPR Rapid Plasma Reagin NON-REACTIVE (NON-REACTIVE)
[2024-09-26 14:54] LABS: HCV Log PCR <1.18 NOT DETECTED Log IU/mL (NOT DETECTED); HepC Viral Load <15 NOT DETECTED IU/mL (NOT DETECTED)
== END 2024-09-25 14:11 | disposition home or self-care (01) ==
LOC: HO.HHCL 14:10
PROVIDERS: Registered Nurse; Visit Provider Family Medicine
DX: Z00.00 Encounter for general adult medical examination without abnormal findings (principal); Z91.81 History of falling; Z11.3 Encounter for screening for infections with a predominantly sexual mode of transmission; E11.9 Type 2 diabetes mellitus without complications
CPT/HCPCS: 36415; 80053; 80061; 82043; 82306; 82570; 82607; 84443; 85025; 86592; 86704; 87389; 87522

== ENCOUNTER 2025-03-12 09:45 | Emergency (ER) | payer MEDICARE, MEDICAID, SELFPAY ==
--- OUTSIDE RECORDS SUMMARY | 2024-11-16 09:55 | XMS_ITS ---
Author Organization [facility] Address [address] [place] [phone] Care Team Providers Care Electric Train Driver Name Role Phone TERRI FUNES, ADENIKE Primary Care Provider UnavailParamjit Gutierres Jr REASON FOR VISIT Patient presents today for a colon screening Encounters Encounter Location Date Provider Diagnosis [facility] [address] [place] [phone] 11/16/2024 Paramjit Iglesias Jr Plan Of Treatment No Information Progress Notes * OLIVE PENADOB: 5 (69 yo F)Acc No.[id number]:11/16/2024 Progress Notes Patient: OLIVE MONTEZ Provider: Aaron Iglesias MD :1955 A ge:69 Y S ex:Female Date:11/16/2024 Address:[address] [place], [place] [phone] Pcp:ADENIKE MURRAY MD Subjective: * Chief Complaints: [...] Pending * Provider: Aaron Iglesias MD Date: 11/16/2024 Generated for Bronwyn rasheed/Manas/eTmarleysmitting on: 0 03/12/2025 01:11 PM EDT
[2025-03-12 10:19] VITALS: BP 159/75; PULSE 73; RESP 16; TEMP 36.7; O2SAT 97; BMI 32.1
--- NOTE | 2025-03-12 10:20 | ED.GENADULT ---
HPI - General Adult General Chief complaint: Upper Respiratory Symptoms Stated complaint: pt states wants to get tested for covid Time Seen by Provider: 03/12/25 10:32 Source: patient Mode of arrival: ambulatory Limitations: no limitations History of Present Illness ED Provider: FARHANA FAY PA-C HPI narrative: 69 year old female with pmhx significant for DM, HTN, high cholesterol, arthritis presents to the ED today requesting COVID testing. She reports headache, dry cough, and nasal congestion. She states that someone at her [facility] tested positive for covid. Denies fever, chills, shortness of breath, hemoptysis. Related Data Home Medications ?Medication ?Instructions ?Recorded ?Confirmed hydrochlorothiazide 25 mg tablet 25 mg PO DAILY 04/11/21 04/11/21 lisinopril 40 mg tablet 40 mg PO DAILY 04/11/21 04/11/21 metformin 500 mg tablet 1,000 mg PO BID 04/11/21 04/11/21 simvastatin 20 mg tablet 20 mg PO BEDTIME 04/11/21 04/11/21 Previous Rx's ?Medication ?Instructions ?Recorded acetaminophen 300 mg-codeine 30 mg 1 tab PO Q8H PRN pain #10 tabs 04/02/21 tablet lidocaine HCl 4 % topical cream 1 appl topical BID PRN pain #120 04/02/21 (Aspercreme (lidocaine HCl)) grams naproxen 500 mg tablet 500 mg PO BID PRN pain #10 tabs 04/02/21 meclizine 25 mg tablet 25 mg PO BID PRN dizziness #10 tabs 08/10/24 benzonatate 100 mg capsule 100 mg PO BID PRN cough #20 caps 03/12/25 Allergies Allergy/AdvReac Type Severity Reaction Status Date / Time No Known Allergies (No Known Allergy Verified 03/12/25 10:22 Allergies*) Review of Systems Review of Systems: Constitutional: No fever, chills, fatigue, night sweats, weight changes ENT/Mouth: No ear pain, hearing loss, nasal congestion, sinus pain, rhinorrhea, sore throat Eyes: No eye pain, swelling, redness, vision changes, discharge Cardio: No chest pain, palpitations, ROGERS, orthopnea, peripheral edema Pulm: No SOB, cough, sputum, wheezing, dyspnea, hemoptysis, +cough GI: No nausea, vomiting, hematemesis, abdominal pain, diarrhea, constipation, hematochezia, melena : No irregular bleeding, dysuria, frequency, urgency, hesitancy, hematuria, flank pain, urinary flow changes, urinary incontinence or retention MSK: No back pain, neck pain, joint pain, myalgias Skin: No lesions, rashes Neuro: No weakness, numbness, paresthesias, LOC, dizziness, +headache Psych: No anxiety/panic, depression, SI/HI, AH/VH All other systems reviewed and are negative. [facility] Past Medical History Attestation statement: The following information was validated with the patient. 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 Skin: Warm, dry, intact. No rashes or lesions. Head: Normocephalic, atraumatic. EENT: Hearing is intact b/l. Conjunctiva clear. PERRLA. Moist mucous membranes.? Cardiac: Chest wall symmetric. RRR Lungs: Normal respiratory effort without accessory muscle use. CTA bilaterally. No rales, rhonchi, or wheezes.? Ext: Upper and lower extremities atraumatic, without tenderness, deformity, swelling or erythema. Full ROM throughout. Neuro: AOx3. Normal speech. Ambulating with steady gait Course Course Course Narrative: Positive COVID. Negative flu, rsv. Patient informed of positive COVID results. Discussed symptomatic treatment. Susana Tay sent to pharmacy for cough. Her vitals have remained stable while in ED she is well-appearing. Patient has remained stable throughout ED visit today. Discussed worrisome signs and symptoms and when to return to the ED. All questions answered at this time. Patient is agreeable with disposition and stable for discharge. Medical Decision Making Medical Decision Making [facility] Narrative: 69 year old female with pmhx significant for DM, HTN, high cholesterol, arthritis presents to the ED today requesting COVID testing. patient is hypertensive, vitals are otherwise wnl. she is well appearing. Differential diagnosis includes viral syndrome, headache, migraine. 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 Plan for viral swabs and likely dc home. Differential Diagnosis Differential Diagnoses: The differential diagnosis associated with the presentation includes As above Admission/Observation Not indicated Lab Data [facility] Lab Attestation statement: I reviewed the patient's lab results. As above Labs: Lab Results 03/12/25 Range/Units 10:25 Influenza Type A (PCR) NEGATIVE (Negative) Influenza Type B (PCR) NEGATIVE (Negative) RSV RNA Qual (PCR) NEGATIVE (Negative) SARS-CoV-2 RNA (RT-PCR) POSITIVE A (Negative) External Record Review External record reviewed: Inpatient record Prescription Management I considered prescription management with: Other (Susana Tay) Social Determinants Patient?s care significantly limited by Social Determinants of Health including: Other Social Determinant of Health Critical Care Time Critical Care Time Critical Care Time: No Discharge Plan Discharge Clinical Impression: COVID-19 Patient Disposition: Home, Self-Care Instructions: COVID-19 (Coronavirus Disease 2019) (ED) Additional Instructions: Today you tested positive for COVID-19.? You tested negative for flu and rsv. Take Ibuprofen or Tylenol as needed for fevers or body aches.? Quarantine for 5 days and ensure you wear a mask. After 5 days you should wear a mask for 5 days after that.? Practice social distancing and good hand hygiene. Drink plenty of fluids. Follow-up with your primary care provider this week. Return to the emergency department with new or worsening symptoms. In case of emergency call 911 You can purchase a pulse oximeter from your local pharmacy or grocery store, and monitor your oxygen saturation if it goes below 94% you should return to the emergency department for further evaluation. Prescriptions: New benzonatate 100 mg capsule 100 mg PO BID PRN (Reason: cough) Qty: 20 0RF No Action naproxen 500 mg tablet 500 mg PO BID PRN (Reason: pain) Qty: 10 0RF lidocaine HCl [Aspercreme (lidocaine HCl)] 4 % cream 1 appl topical BID PRN (Reason: pain) Qty: 120 0RF acetaminophen-codeine 300-30 mg tablet 1 tab PO Q8H PRN (Reason: pain) Qty: 10 0RF meclizine 25 mg tablet 25 mg PO BID PRN (Reason: dizziness) Qty: 10 0RF lisinopril 40 mg tablet 40 mg PO DAILY simvastatin 20 mg tablet 20 mg PO BEDTIME metformin 500 mg tablet 1,000 mg PO BID hydrochlorothiazide 25 mg tablet 25 mg PO DAILY Referrals: Maria Guadalupe Carrizales FNP [Primary Care Provider, Family Practice] Stand Alone Forms: Work/School Release Interventions: ED Discharge Assessment Last Done: 03/12/25 12:03 Discharge Date/Time: 03/12/25 12:03 Print Language: Sinhala
[2025-03-12 11:17] LABS: Resp Syncy Virus RNA Qual PCR NEGATIVE (Negative); SARS COV2 PCR INHOUSE POSITIVE (Negative)
[2025-03-12 12:03] VITALS: BP 159/75; PULSE 73; RESP 16; TEMP 36.7; O2SAT 97
--- OUTSIDE RECORDS SUMMARY | 2025-03-12 13:12 | XMS_ITS | Encounter Summary ---
Author Organization [employer] Address [address] [place] [address] Care Team Providers Care Reading Interventionist Name Role Phone Maria Guadalupe Carrizales PETER Primary Care Provider [phone] Paramjit Iglesias MD Unavailable Encounter Details Date Type Department Care Team (Late st Contact Info) Description 04/03/2024 Orders Only [facility] MED & PEDS [address] [place], [place] [phone] ProviderDylon MD Social History Tobacco Use Types [...] Care Team (Late st Contact Info) Description 04/09/2025 1:15 PM EDT Office Visit [facility] MED & PEDS [address] [place] [address] Maria Guadalupe Carrizales FNP [address] [place] [address] documented as of this encounter Procedures Procedure [...] documented as of this encounter Care Teams Reading Interventionist Relationship Specialty Start Date End Date Maria Guadalupe Carrizales FNP [address] [place] [address] PCP - General Family Medicine 03/24/22 Paramjit Iglesias MD [address] [place] [address] Gastroenterology 09/18/24 documented as of this encounter
== END 2025-03-12 12:03 | disposition home or self-care (01) ==
LOC: HO.ED 11:58
PROVIDERS: Physician Assistant Medical; Emergency Provider Emergency Medicine; PCP Registered Nurse
DX: U07.1 COVID-19 (principal); R51.9 Headache, unspecified; E11.9 Type 2 diabetes mellitus without complications; R09.81 Nasal congestion; R05.9 Cough, unspecified
CPT/HCPCS: 87637; 99282; 99283

== ENCOUNTER 2025-05-01 10:41 | Outpatient (REF) | payer MEDICARE, MEDICAID, SELFPAY ==
--- OUTSIDE RECORDS SUMMARY | 2024-07-13 09:55 | XMS_ITS ---
Author Organization [facility] Address [address] [place] [phone] Care Team Providers Care Insurance Loss Adjuster Name Role Phone TERRI FUNES, ADENIKE Primary Care Provider Paramjit Irby Jr REASON FOR VISIT Patient presents today for a screening colonoscopy Encounters Encounter Location Date Provider Diagnosis [facility] [address] [place] [phone] 07/13/2024 Paramjit Iglesias Jr Plan Of Treatment No Information Progress Notes * OLIVE PENADOB: [birth year] (69 yo F)Acc No.[id number]:07/13/2024 Progress Notes Patient: OLIVE MONTEZ Provider: Aaron Iglesias MD :1955 A ge:68 Y S ex:Female Date:07/13/2024 Address:[address] [place], [place] [phone] Pcp:ADENIKE MURRAY MD Subjective: * Chief Complaints: * 1 . Patient presents today for a screening colonoscopy. * Medical History: Objective: * Vitals: Assessment: Plan: * Treatment: * * The named appointment provid er may or may not be the originator of this progress note, and it is not deemed complete until electronically signed by the appointment provider. Sign off status: Pending * Provider: Aaron Iglesias MD Date: 09/13/2023 Generated for Bronwyn rasheed/Manas/Emilyitting on: 01:00 PM EDT
--- OUTSIDE RECORDS SUMMARY | 2024-11-16 09:55 | XMS_ITS ---
Author Organization [facility] Address [address] [place] [phone] Care Team Providers Care Trimming Inspector Name Role Phone TERRI FUNES, ADENIKE Primary Care Provider UnavailParamjit Gutierres Jr REASON FOR VISIT Patient presents today for a colon screening Encounters Encounter Location Date Provider Diagnosis [facility] [address] [place] [phone] 11/16/2024 Paramjit Iglesias Jr Plan Of Treatment No Information Progress Notes * OLIVE PENADOB: 5 (69 yo F)Acc No.[id number]:11/16/2024 Progress Notes Patient: OLIVE MONTEZ Provider: Aaron Iglesias MD :1955 A ge:69 Y S ex:Female Date:11/16/2024 Address:[address] [place], [place] [phone] Pcp:ADENIKE MURRAY MD Subjective: * Chief Complaints: * 1 . Patient presents today for a colon screening. * Medical History: Objective: * Vitals: Assessment: Plan: * Treatment: * * The named appointment provid er may or may not be the originator of this progress note, and it is not deemed complete until electronically signed by the appointment provider. Sign off status: Pending * Provider: Aaron Iglesias MD Date: 0 11/16/2024 Generated for Bronwyn rasheed/Manas/eTbonnyitting on: 01:00 PM EDT
--- OUTSIDE RECORDS SUMMARY | 2025-05-01 13:00 | XMS_ITS | Patient Health Record ---
Author Organization [facility] Address [address] [place] [address] Care Team Providers Care Room Service Manager Name Role Phone ADENIKE MURRAY MD Primary Care Provider Paramjit Irby Jr [phone] Reason For Referral No Information Encounters Encounter Location Date Provider Diagnosis [facility] [address] [place] [address] 11/16/2024 Paramjit Iglesias Jr Plan Of Treatment No Information Insurance Providers Payer Name Payer Address Payer Phone Subscriber Number Group Number Insured Name Patient Relationship to Insured Coverage Start Date Coverage End Date [place] [address] [place] [address] [id number] OLIVE PENA Self - patient is the insured MEDICAID OF [facility] [address] [place] [phone] [id number] OLIVE PENA Self - patient is the insured
--- OUTSIDE RECORDS SUMMARY | 2025-05-01 13:00 | XMS_ITS | Encounter Summary ---
Author Organization [employer] Address [address] [place] [address] Care Team Providers Care New Accounts Representative Name Role Phone All Maria Guadalupe FNP Primary Care Provider [phone] Paramjit Iglesias MD Unavailable [phone] Encounter Details Date Type Department Care Team (Late st Contact Info) Description 03/22/2024 Orders Only [facility] MEDICINE [address] [place] [address] Provider, MD Dylon Social History Tobacco Use Types Packs/Day Years [...] Care Team (Late st Contact Info) Description 07/09/2025 10:00 AM EST Office Visit [facility] & PEDS [address] [place] [address] Maria Guadalupe Carrizales FNP [address] [place] [address] documented as of this encounter Procedures Procedure Name Priority Date/Time Associated Diagnosis Comments DIABETES EYE EXAM Routine 07/29/2023 11:08 AM EST documented in this encounter Results * Diabetes Eye Exam (07/29/2023 11:08 AM EST) us Historical Provider HEALTH MAINTENANCE Final Result documented in this encounter Visit Diagnoses Not on filedocumented in this encounter Additional Health Concerns Assessment Noted Time PHQ-9 Depression Total Score: 0 11/12/19 24 8:48 AM EDT documented as of this encounter Care Teams New Accounts Representative Relationship Specialty Start Date End Date Maria Guadalupe Carrizales FNP [address] [place] [address] PCP - General Family Medicine 03/24/22 Paramjit Iglesias MD [address] [place] [address] Gastroenterology 09/18/24 documented as of this encounter
--- OUTSIDE RECORDS SUMMARY | 2025-05-01 13:00 | XMS_ITS | Encounter Summary ---
Author Organization [employer] Address [address] [place] [address] Care Team Providers Care Laboratory Manager Name Role Phone All Maria Guadalupe FNP Primary Care Provider [phone] Paramjit Iglesias MD Unavailable [phone] Encounter Details Date Type Department Care Team (Late st Contact Info) Description 04/03/2024 Orders Only [facility] MED & PEDS [address] [place], [place] [phone] Provider, MD Dylon Social History Tobacco Use [...] Description 07/09/2025 10:00 AM EST Office Visit [facility] MED & PEDS [address] [place] [address] Maria Guadalupe Carrizales FNP [address] [place] [address] documented as of this encounter Procedures Procedure Name Priority Date/Time Associated Diagnosis Comments COLONOSCOPY Routine 10/31/2014 2:07 PM EDT documented in this encounter Results * Hm Colonoscopy (10/31/2014 2:07 PM EDT) us Historical Provider HEALTH MAINTENANCE Final Result documented in this encounter Visit Diagnoses Not on filedocumented in this encounter Additional Health Concerns Assessment Noted Time PHQ-9 Depression Total Score: 0 11/12/19 24 8:48 AM EDT documented as of this encounter Care Teams Laboratory Manager Relationship Specialty Start Date End Date Maria Guadalupe Carrizales FNP [address] [place] [address] PCP - General Family Medicine 03/24/22 Paramjit Iglesias MD [address] [place] [address] Gastroenterology 09/18/24 documented as of this encounter
--- OUTSIDE RECORDS SUMMARY | 2025-05-01 13:01 | XMS_ITS | Encounter Summary ---
Author Organization [employer] Address [address] [place] [address] Care Team Providers Care Piano Regulator Name Role Phone PamelaMaria Guadalupe musa PETER Primary Care Provider [phone] Paramjit Iglesias MD Unavailable [phone] Encounter Details Date Type Department Care Team (Late st Contact Info) Description 06/10/2023 Abstract [facility] MEDICINE [address] [place] [address] oJy Barnes Social History Tobacco Use Types Packs/Day [...] 10:00 AM EST Office Visit [facility] MED & PEDS [address] [place] [address] Maria Guadalupe Carrizales FNP [address] [place] [address] documented as of this encounter Procedures Procedure Name Priority Date/Time Associated Diagnosis Comments COLONOSCOPY Routine 10/31/2014 documented in this encounter Results * Colonoscopy (10/31/2014) Colonoscopy Normal Normal Narrative Joy Barnes - 10/31/2014 Tubular adenoma Historical Provider HEALTH MAINTENANCE Final Result documented in this encounter Visit Diagnoses Not on filedocumented in this encounter Additional Health Concerns Assessment Noted Time PHQ-9 Depression Total Score: 2 12/16/19 23 9:21 AM EDT documented as of this encounter Care Teams Piano Regulator Relationship Specialty Start Date End Date Maria Guadalupe Carrizales FNP [address] [place] [address] PCP - General Family Medicine 03/24/22 Paramjit Iglesias MD [address] [place] [address] Gastroenterology 09/18/24 documented as of this encounter
--- OUTSIDE RECORDS SUMMARY | 2025-05-01 13:01 | XMS_ITS | Encounter Summary ---
Author Organization [employer] Address [address] [place] [address] Care Team Providers Care Sheather Name Role Phone Maria Guadalupe Carrizales Primary Care Provider Paramjit Iglesias MD Unavailable [phone] Reason for Visit * Reason Comments Med Refill Encounter Details Date Type Department Care Team (Late st Contact Info) Description 12/10/2024 Refill [facility] MEDICINE [address] [place] [address] Maria Guadalupe Carrizales FNP [address] [place], [place] [phone] Essential hypertension Social History Tobacco Use Types Packs/Day Years [...] Description 07/09/2025 10:00 AM EST Office [facility] MED & PEDS [address] [place] [address] Maria Guadalupe Carrizales FNP [address] [place] [address] documented as of this encounter Visit Diagnoses Diagnosis Essential hypertension Unspecified essential hypertension documented in this encounter Additional Health Concerns Assessment Noted Time PHQ-9 Depression Total Score: 0 11/12/19 24 8:48 AM EDT documented as of this encounter Care Teams Sheather Relationship Specialty Start Date End Date Maria Guadalupe Carrizales FNP [address] [place] [address] PCP - General Family Medicine 03/24/22 Paramjit Iglesias MD [address] [place] [address] Gastroenterology 09/18/24 documented as of this encounter
--- OUTSIDE RECORDS SUMMARY | 2025-05-01 13:01 | XMS_ITS | Encounter Summary ---
Author Organization [employer] Address [address] [facility] [address] [place] [address] Care Team Providers Care Negative Notcher Name Role Phone Maria Guadalupe Carrizales Primary Care Provider [phone] Paramjit Iglesias MD Unavailable [phone] Encounter Details Date Type Department Care Team (Late st Contact Info) Description 10/06/2024 Orders Only [facility]ED[facility] [address] [place], [place] [phone] Maria Guadalupe Carrizales FNP [address] [place], [place] [id number] Vitamin B12 deficiency (Primary Dx) Social History Tobacco Use Types [...] as of this encounter Miscellaneous Notes * Assessment & Plan Note - PETER Pulliam - 10/06/2024 9:08 AM EDTAssociated Problem(s): Vitamin B12 deficiency - September 2024: initiated Vit B12 supplement 1000 mcg daily documented in this encounter Plan of Treatment Upcoming Encounters Date Type Department Care Team (Late st Contact Info) Description 07/09/2025 10:00 AM EST Office Visit [facility] [address] [place] [address] Maria Guadalupe Carrizales FNP [address] [place] [address] documented as of this encounter Visit Diagnoses Diagnosis Vitamin B12 deficiency- Primary Other B-complex deficiencies documented in this encounter Additional Health Concerns Assessment Noted Time PHQ-9 Depression Total Score: 0 11/12/19 24 8:48 AM EDT documented as of this encounter Care Teams Negative Notcher Relationship Specialty Start Date End Date Maria Guadalupe Carrizales FNP [address] [place] [address] PCP - General Family Medicine 03/24/22 Paramjit Iglesias MD [address] [place] [id number] Gastroenterology 09/18/24 documented as of this encounter
--- OUTSIDE RECORDS SUMMARY | 2025-05-01 13:01 | XMS_ITS | Encounter Summary ---
Author Organization [employer] Address [address] [facility] [address] [place] [address] Care Team Providers Care Excellence Leader Name Role Phone Maria Guadalupe Carrizales Primary Care Provider [phone] Paramjit Iglesias MD Unavailable [phone] Encounter Details Date Type Department Care Team (Late st Contact Info) Description 07/07/2022 Abstract [facility] [address] [place] [address] Provider, MD Dylon Social History Tobacco Use [...] Encounters Date Type Department Care Team (Late Contact Info) Description 07/09/2025 10:00 AM EST Office Visit [facility] MED [facility] PEDS [address] [place] [address] Maria Guadalupe Carrizales FNP [address] [place] [address] documented as of this encounter Visit Diagnoses Not on filedocumented in this encounter Care Teams Excellence Leader Relationship Specialty Start Date End Date Maria Guadalupe Carrizales FNP [address] [place] [address] PCP - General Family Medicine 03/24/22 Paramjit Iglesias MD [address] [place] [id number] Gastroenterology 09/18/24 documented as of this encounter
--- OUTSIDE RECORDS SUMMARY | 2025-05-01 13:01 | XMS_ITS | Clinical Summary ---
Author Organization [employer] Address [address] [facility] 7[address] [place] [address] Care Team Providers Care Load Test Mechanic Name Role Phone Maria Guadalupe Carrizales Primary Care Provider [phone] Paramjit Iglesias MD Unavailable [phone] Allergies No known active allergies Medications glucose blood (FREESTYLE LITE) test strip 1 strip at bed time. 08/15/19 21 Active Diclofenac Sodium 1 % gelIndications:Art hritis Use 3-4 times daily as needed for knee pain 50 g 1 07/23/20 22 Active Additional Information Patient not taking.Reported on 09/25/2024 Blood Pressure Monitor kitIndications:Ess ential hypertension Check BP daily and when symptomatic 1 kit 03/18/20 23 Active metFORMIN (Glucophage) 500 MG tabletIndications: Type 2 diabetes mellitus without complication, without long-term current use of insulin (HCC) TAKE 2 TABLETS BY MOUTH ONCE DAILY 180 tablet 3 05/22/20 24 Active ibuprofen 400 MG tablet TAKE 1 TO 2 TABLETS BY MOUTH EVERY 8 HOURS NEEDED FOR PAIN OR FEVER 100 tablet 3 10/06/19 25 Active cyanocobalamin (Vitamin B-12) 1000 MCG tablet Take 1 tablet (1,000 mcg) by mouth Once per day. 90 tablet 1 10/07/19 25 026 Active simvastatin (Zocor) 20 MG tablet TAKE 1 TABLET BY MOUTH EVERY EVENING (FOR cholesterol) 90 tablet 3 10/17/19 25 Active cholecalciferol VITAMIN D (Vitamin D-3) 50 MCG (2000 UT) tabletIndications: Vitamin D deficiency TAKE 1 TABLET BY MOUTH EVERY MORNING 90 tablet 1 12/21/19 25 Active hydroCHLOROthiazid e 12.5 MG tabletIndications: Essential hypertension TAKE 1 TABLET BY MOUTH EVERY DAY 90 tablet 1 12/21/19 25 Active calcium carbonate 1500 (600 Ca) MG tablet TAKE 1 TABLET BY MOUTH ONCE DAILY 90 tablet 3 03/13/20 25 Active lisinopril 40 MG tabletIndications: Essential hypertension TAKE 1 TABLET BY MOUTH EVERY DAY 90 tablet 3 03/13/20 25 Active tiZANidine (Zanaflex) 2 MG tabletIndications: Low back pain at multiple sites Take 1-2 tablets (2-4 mg) by mouth if needed at bedtime for muscle spasms. 30 tablet 2 04/09/20 25 026 Active Diclofenac Sodium 1 % gelIndications:Louisa rosina localized osteoarthritis of knees, bilateral Apply thin layer by topical route (quantity as directed on package insert) to affected area of pain 3 times daily as needed. 50 g 3 04/09/20 25 Active Active Problems Problem Noted Date Diagnosed Date Vitamin B12 deficiency 10/06/2024 Assessment & Plan (04/09/2025 1:02 PM EDT): - September 2024: initiated Vit B12 supplement 1000 mcg daily Assessment & Plan (10/30/2024 3:45 PM EDT): - September 2024: initiated Vit B12 supplement 1000 mcg daily Assessment & Plan (10/06/2024 9:08 AM EDT): - September 2024: initiated Vit B12 supplement 1000 mcg daily Osteopenia after menopause 03/09/2024 Overview (05/22/2024): DEXA completed 03/08/24: Osteopenia based on the lowest T-score value of -1.2 in the femoral neck Cont Vit D & calcium supplements Assessment & Plan (04/09/2025 1:02 PM EDT): Encouraged lifestyle interventions Assessment & Plan (05/22/2024 6:45 PM EDT): Encouraged lifestyle interventions Low back pain at multiple sites 11/13/2023 Overview (10/30/2024): Xray Aug 2023: Mild degenerative changes at the level of L5-S1. Referral to [facility] pain management placed 10/30/24 Assessment & Plan (04/10/2025 8:15 AM EDT): -No bowel/bladder incontinence or saddle paresthesia. -Continue with symptomatic management, although goal for improved pain relief. Given muscle spasms, will trial tizanidine nightly as needed. Reviewed med safety and side effects. - Declines interest in physical therapy, but scheduled for [facility] pain management consult April 27 for further eval -Follow up precautions reviewed Assessment & Plan (10/30/2024 3:55 PM EDT): -No bowel/bladder incontinence or saddle paresthesia. Pain radiates down right leg. -Cont with symptomatic management and OTC analgesics -Previously declined physical therapy referral, but in agreement for [facility] pain management consult -Follow up precautions reviewed Assessment & Plan (05/22/2024 6:46 PM EDT): [...] extremities 06/29/2023 Overview (06/29/2023): -Chronic -Referred to [facility] Vascular 01/13/23 Primary localized osteoarthritis of knees, bilat eral 07/27/2022 Overview (05/22/2024): XR January 2024: Tricompartmental osteoarthritis in both knees, most pronounced in the lateral compartments, right greater than left. No significant change. - Previously following with [facility] Ortho - [facility] - last injection 04/06/24 right knee Assessment & Plan (04/10/2025 8:15 AM EDT): - Encouraged trial of topical Voltaren gel -Referral to reestablish with Ortho Assessment & Plan (05/22/2024 6:43 PM EDT): DME request for shower chair Assessment & Plan (02/20/2024 6:57 PM EDT): -Received injections at [facility] ortho in the past -Repeat bilateral knee XR -Refer to [facility] for cortisone injections if appropriate pending imaging results Assessment & Plan (07/27/2022 6:51 PM EST): -Received injections at [facility] ortho in the past -Continue with follow with [facility] Ortho, symptomatic management Routine health maintenance 07/27/2022 Overview (04/10/2025): OPH: Eye exam 08/08/24 at [facility]. No Retinopathy. Pap: 04/12/2019: HPV neg Colonoscopy: Last 2014, due 2019. Encouraged to f/up with GI. Referral re-sent 04/10/25 Mammo: BIRADS 1 on 03/08/24 DXA: osteopenia Feb 2024 Last PE: 04/09/25 AWV completed September 2024 HCP: completed 2024 Assessment & Plan (02/20/2024 7:00 PM EDT): -Confirm with [facility] if pt is past due for colonoscopy or due next year. Assessment & Plan (11/13/2023 7:19 PM EDT): Declined COVID vaccine 11/12/23 Assessment & Plan (07/01/2023 9:40 PM EST): -Last eye exam: Mar 2021 at [facility], scheduled Jul 2023 -Pap: 04/12/2019: HPV neg -Colonoscopy: due 10/24/2024 -Mammo: BIRADS 2 on 06/11/21. Ordered 12/15/22. Assessment & Plan (03/25/2023 4:28 PM EDT): -Last eye exam: Mar 2021 at [facility], due -Pap: 04/12/2019: HPV neg -Colonoscopy: due 10/24/2024 -Mammo: BIRADS 2 on 06/11/21. Ordered 12/15/22. Assessment & Plan (12/15/2022 9:50 AM EDT): -Last eye exam: Mar 2021 at [facility], due -Pap: 04/12/2019: HPV neg -Colonoscopy: due 10/24/2024 -Mammo: BIRADS 2 on 06/11/21. Ordered 12/15/22. Assessment & Plan (07/27/2022 6:55 PM EST): -Last eye exam: Mar 2021 at [facility], due -Pap: 04/12/2019: HPV neg -Colonoscopy: due 10/24/2024 -Mammo: BIRADS 2 on 06/11/21 Allergic rhinitis 04/29/2015 Arthritis 04/29/2015 Constipation 04/29/2015 Essential hypertension 04/29/2015 Assessment & Plan (04/09/2025 1:01 PM EDT): -Elevated in office, Well controlled per home readings -Continue current med regimen: hydrochlorothiazide 12.5mg daily lisinopril 40mg daily -Encouraged low salt diet and daily exercise/movement Assessment & Plan (05/22/2024 6:45 PM EDT): [...] EST): -Well controlled -Continue current med regimen: hydrochlorothiazide [...] home Type 2 diabetes mellitus 04/29/2015 Overview (04/10/2025): Lab Results Component Value Date HGBA1C 6.4 (A) 04/09/2025 A1c: well controlled Microalbumin: WNL Feb 2023 Eye exam: CEE 08/08/24 at [facility] (Dr. Miranda). No retinopathy. PNA: last 03/18/23 Tdap/Td: last 03/18/23 ACEi/ARB: yes Statin: yes ASA: no Lipids: Lab Results Component Value Date TRIG 96 09/25/2024 CHOL 132 09/25/2024 LDLCHOLCAL 64 09/25/2024 HDL 49 09/25/2024 Lifestyle: Encouraged regular movement and aerobic exercise for improved glycemic control Encouraged daily foot checks Encouraged lean protein snacks and to avoid foods high in sugar and simple carbohydrates Medications: Metformin 1000mg daily Treatment Goals: A1c goal: <8% FBG goal: <130 2 hour post prandial goal: <180 Assessment & Plan (10/30/2024 3:52 PM EDT): A1c well controlled, continue current regimen Assessment & Plan (05/22/2024 6:46 PM EDT): [...] sugar and simple carbohydrates Medications: Metformin 1000mg BID Treatment Goals: A1c goal: [...] Recheck Vit D lab order Hyperlipidemia Overview (04/10/2025): Lab Results Component Value Date TRIG 96 09/25/2024 CHOL 132 09/25/2024 LDLCHOLCAL 64 09/25/2024 HDL 49 09/25/2024 Continue simvastatin 20mg nightly Continue lifestyle interventions Resolved Problems Problem Noted Date Diagnosed Date Resolved Date Pure hypercholesterolemia 04/29/2015 Encounters Date Type Department Care Team Description 04/09/2025 1:15 PM EDT Office Visit [facility] [address] [place] [address] Maria Guadalupe Carrizales FNP Essential hypertension (Primary Dx); Dietary counseling; Exercise counseling; Other hyperlipidemia; Type 2 diabetes mellitus without complication, without long-term current use of insulin ([facility]); Vitamin B12 deficiency; Osteopenia after menopause; Routine health maintenance; Primary localized osteoarthritis of knees, bilateral; Low back pain at multiple sites; Colon cancer screening; History of colon polyps 04/09/2025 Travel 04/06/2025 Telephone [facility] [address] [place] [address] Maria Guadalupe Carrizales FNP Chart Prep 03/12/2025 Orders Only GENERIC EXTERNAL DATA DEPARTMENT Provider, Generic External Data 03/12/2025 Refill [facility] [address] [place] [address] Maria Guadalupe Carrizales FNP Essential hypertension 01/29/2025 Telephone [facility] [address] [place] [address] Maria Guadalupe Carrizales FNP appointment cancelled from Last 3 Months Immunizations Immunization Administration Dates Next Due Influenza High-dose Quadriva [...] Answer Date Recorded Patient Health Questionnaire-9 Score 1 04/09/2025 Patient Health Questionnaire-9 Score 1 04/09/2025 Last PHQ-9: Questionnaire Data Not on file 0 04/09/2025 Housing Stability Answer Date Recorded What is [...] Date Recorded Patient Health Questionnaire-2 Score 0 04/09/2025 Internet Access Answer Date Recorded Internet Access Q1 No 02/18/2025 Internet Access Q2 Not on file 02/18/2025 Comments Unknown Sex and Gender Information Value Date Recorded Sex Assigned at Female 05/25/2022 10:14 AM EDT Legal Sex Female 10:14 AM EDT Gender Identity Female 05/25/2022 10:14 AM EDT Sexual Orientation Straight 05/25/2022 10 :14 AM EDT Last Filed Vital Signs Vital Sign Reading Time Taken Comments Blood Pressure 116/72 04/09/2025 1:14 PM EDT Pulse 82 04/09/2025 1:14 PM EDT Temperature 36.4 C (97.6 F) 04/09/2025 1:14 PM EDT Respiratory Rate 10 04/09/2025 1:14 PM EDT Oxygen Saturation 98% 04/09/2025 1:14 PM EDT Inhaled Oxygen Concentration - - Weight 81.6 kg (180 lb) 04/09/2025 1:14 PM EDT Height 161 cm (5' 3.39 ) 04/09/2025 1:14 PM EDT Body Mass Index 31.49 04/09/2025 1:14 PM EDT Plan of Treatment Upcoming Encounters Date Type Department Care Team (Late st Contact Info) Description 07/09/2025 10:00 AM EST Office Visit [facility] [address] [place] [address] Maria Guadalupe Carrizales, REAL ESTATE TEACHER [address] [place] [address] Health Maintenance Due Date Last Done Comments CT Colonography 1955 FIT DNA/Cologuard 1955 FIT 1955 FOBT 1955 Sigmoidoscopy 1955 Diabetes: Foot Exam 1965 Colonoscopy 11/01/2019 10/31/2014, 10/31/2014 Colorectal Cancer Screening 11/01/2019 Mammogram 03/08/2025 03/08/2024, 01/2020, 05/01/2020, Additional history exists COVID-19 Vaccine ( season) 2025 05/11/2022, 07/15/2021, 10/17/2020, Additional history exists Influenza Vaccine (#1) 2025 , 06/30/2023, 05/11/2022, Additional history exists Eye Exam 07/29/2025 07/29/2023 Alcohol/Substance Use Screening 09/25/2025 09/25/2024 Diabetes: Urine Protein Screening 09/25/2025 09/25/2024, 03/23/2023, 02/06/2022, Additional history exists Lipid Panel 09/25/2025 09/25/2024, 0810/2022, 02/06/2022, Additional history exists SDOH Screening 09/25/2025 09/25/2024 Diabetes: Hemoglobin A1C 10/07/2025 025, 10/30/2024, 05/22/2024, Additional history exists Tobacco Screening 10/30/2025 10/30/2024 Depression Screening 04/09/2026 04/09/2025, 04/09/20 25 RSV Patients and Patients Aged 60 years or older (1 - 1-dose 75+ series) 2030 DTaP/Tdap/Td Vaccines (3 - Td or Tdap) 03/18/2033 03/18/2023, 08/25/2012 Zoster Vaccines Completed 07/22/2021, 04/25, 05/28/2016 Pneumococcal Vaccine: 50+ Years Completed 03/18/2023, 04/01/2011 Hepatitis C Screening Completed 09/25/2024 HIB Vaccines Aged Out No longer eligi [...] patient's age to complete this topic Meningococcal B Vaccine Aged Out No l onger eligible based on patient's age to complete [...] Procedure Name Priority Date/Time Associated Diagnosis Comments POCT GLYCATED HEMOGLOBIN, TOTAL Routine 04/09/2025 1:16 PM EDT Type 2 diabetes mellitus without complication, without long-term current use of insulin (CMS/HCC) POCT GLUCOSE Routine 04/09/2025 1:15 PM EDT Type 2 diabetes mellitus without complication, without long-term current use of insulin (CMS/HCC) SARS COV2/INFLUENZA A/B AND RSV RNA QL NAAT Routine 03/12/2025 10:25 AM EDT HEPATITIS C VIRAL RNA, QUANTITATIVE, REAL-TIME PCR Routine 09/25/2024 2:14 PM EST Routine health maintenance ALBUMIN, RANDOM URINE W/CREATININE Routine 09/25/2024 2:14 PM EST Routine health maintenance LIPID PANEL, STANDARD Routine 09/25/2024 2:14 PM EST Routine health maintenance BI MAMMOGRAM SCREENING TOMOSYNTHESIS BILATERAL Routine 03/08/2024 8:20 AM EDT Screening mammogram for breast cancer DIABETES EYE EXAM Routine 07/29/2023 11:08 AM EST COLONOSCOPY Routine 10/31/2014 from Last 3 Months or Most Recently Relevant to Health Maintenance Results * (ABNORMAL) POCT A1c (04/09/2025 1:16 PM EDT) Hemoglobin A1C 6.4(A) 4.0 - 5.7 % QC Media Lot # Comment:[id number] Lot# Expiration Date Comment:10/30/2026 Blood 04/09/2025 1:16 PM EDT Maria Guadalupe [employer] REAL ESTATE TEACHER POINT OF CARE TEST ENTER/EDIT ORDERABLES Final Result * POCT glucose manually resulted (04/09/2025 1:15 PM EDT) Glucose Blood, POC 143 60 - 200 mg/dL [employer] Lot # Comment:[id number] Lot# Expiration Date Comment:07/14/2025 Blood Capillary blood specimen / Unknown 04/09/2025 1:15 PM EDT us [employer] REAL ESTATE TEACHER POINT OF CARE TEST ENTER/EDIT ORDERABLES Final Result * (ABNORMAL) SARS-CoV-2 RNA, Influenza A/B, and RSV RNA, Ql NAAT (03/12/2025 10:25 AM EDT) Influenza A PCR NEGATIVE Negative [facility] Influenza B PCR NEGATIVE Negative [facility] Resp Syncy Virus RNA Qual PCR NEGATIVE Negative [facility] SARS COV2 PCR POSITIVE(A) Negative [facility] Comment:All test results mus t be correlated with clinical findings.Negative results do not preclude SARS-CoV2, influenza Avirus, influenza B virus and/or RSV infectionand should not be used as the sole basis for treatment orother patient management decisions. Negative results must becombined with clinical observations, patient history, andepidemiological information.This test has not been evaluated for monitoring treatment ofinfection.This test has been authorized by the FDA under an EmergencyUse Authorization (EUA) for use by authorized laboratories.Testing performed on the [employer] GeneXpert utilizingreal-time RT-PCR.All SARS CoV2 and positive influenza A/B results arereported to [facility]. 03/12/2025 10:2 5 AM EDT 03/12/2025 10:28 AM EDT Generic External Data Provider LAB MICROBIOLOGY - GENERAL ORDERABLES Final Result Performing Organization Address [facility] Co de Phone Number [facility] [address] [place] [phone] * Hepatitis C Viral RNA, Quantitative, Real-Time PCR (09/25/2024 2:14 PM EST) [facility] Hepatitis C Viral Load <15 NOT DETECTED NOT DETECTED IU/mL [facility] HCV Log PCR <1.18 NOT DETECTED NOT DETECTED Log IU/mL [facility] Comment:For additional infor matabimael, please refer [email or web address].Ooolala/faq/[email or web address](This link is being provided for informational/educational purposes only.)THIS TEST WAS PERFORMED AT:[facility] [place] [phone] MORALES MD Blood 09/25/2024 2:14 PM EST 09/25/2024 4:20 PM EST us Maria Guadalupe Carrizales REAL ESTATE TEACHER LAB BLOOD ORDERABLES Final Res ult Performing Organization Address [facility] de Phone Number [facility] [address] [place] [phone] * Albumin, Random Urine W/Creatinine (09/25/2024 2:14 PM EST) [facility] Creatinine, Urine 111.18 mg/dL [facility] Microalbumin Urine 21.0 mg/L [facility] Microalbum Creatinine Ratio Ur 18.8 <30 ug/mg cr [facility] Comment:Albumin/Creatinine R atio Reference Ranges: Normal: < 30 ug/mg creatinine Microalbuminuria: 30 - 300 ug/mg creatinineClinical Albuminuria: > 300 ug/mg creatinine Urine 09/25/2024 2:14 PM EST 09/25/2024 4:12 PM EST us Maria Guadalupe Carrizales REAL ESTATE TEACHER LAB URINE ORDERABLES Final Res ult Performing Organization Address [facility] Co de Phone Number [facility] [address] [place] [phone] * Lipid Panel, Standard (09/25/2024 2:14 PM EST) Triglycerides 96 <150 mg/dL [facility] Comment:Desirable Triglyceri de: less than 150 mg/dLBorderline High Triglyceride 150-199 mg/dLHigh Triglyceride: 200-499 mg/dLVery High Triglyceride: greater than or equal to 5OO mg/dL Cholesterol 132 <200 mg/dL [facility] Comment:Desirable Cholestero l: less than 200 mg/dLBorderline High Cholesterol: 200-239 mg/dLHigh Cholesterol: greater than 239 mg/dL LDL Cholesterol Calculated 64 <100 mg/dL [facility] Comment:Desirable LDL: less than 100 mg/dLNear Optimal/Above Optimal LDL: 110- 129 mg/dLBorderline High LDL: 130-159 mg/dLHigh LDL: 160-189 mg/dLVery High LDL: greater than or equal to 190 mg/dL HDL Cholesterol 49 >40 mg/dL [facility] Comment:Desirable HDL: great er than 40 mg/dL Note: This HDL assay may give artificially low results in patients with liver disease. Blood Venous blood specimen / Unknown 09/25/2024 2:14 PM EST 09/25/2024 4:20 PM EST us Maria Guadalupe Carrizales REAL ESTATE TEACHER LAB BLOOD ORDERABLES Final Res ult Performing Organization Address [facility] Co de Phone Number [facility] [address] [place] [phone] * BI Mammogram Screening Tomosynthesis Bilateral (03/08/2024 8:20 AM EDT) Anatomical Region Laterality Modality Breast Bilateral Mammography 03/08/2024 8:20 AM EDT Narrative 03/30/2024 4:21 PM EDT Isa [facility] [address] [place] [address] Mammography Report Signed Patient: Renate Barnes MR#: [id number] : 1955 Acct:[id number] Age/Sex: 68 / F ADM Date: 03/08/24 Loc: HO.MAMMO Attending Dr: Maria Guadalupe Crarizales REAL ESTATE TEACHER Ordering Physician: Maria Guadalupe Carrizales Results: 1Negat kim Date of Service: 03/08/24 Follow Up: 1 Year From [facility] ina Mammogram Procedure(s): MM tomosynthesis screening BI Accession Number(s): [id number] cc: Maria Guadalupe Carrizales REAL ESTATE TEACHER EXAMINATION: MM SCREENING DIGITAL BREAST TOMOSYNTHESIS, BILATERAL [...] by Tamara Goode MD in OV> 03/30/24 161 DD/ 08 TD/TT: 03/08/24 0857 Wash Tank Tender: Procedure Note Donotuseinterpreter, Image - 03/30/2024 [facility] [address] [place] [address] Mammography Report Signed Patient: Renate Barnes LMR#: [id number] : 5Acct:[id number] Age/Sex: 68 / FADM Date: 03/08/24 Loc: HO.MAMMO Attending Dr: Maria Guadalupe Carrizales REAL ESTATE TEACHER Ordering Physician: Maria Guadalupe CarrizalesPResults: 1Negat kim Date of Service: 03/08/24Follow Up: 1 Year From Orig inal Mammogram Procedure(s): MM tomosynthesis screening BI Accession Number(s): [id number] cc: Maria Guadalupe Carrizales REAL ESTATE TEACHER EXAMINATION: MM SCREENING DIGITAL BREAST TOMOSYNTHESIS, BILATERAL [...] 03/30/24 1618 DD/ 0820 TD/TT: 03/08/24 0857 Wash Tank Tender: Maria Guadalupe Carrizales REAL ESTATE TEACHER IMG BI PROCEDURES Final Result * Diabetes Eye Exam (07/29/2023 11:08 AM EST) Historical Provider HEALTH MAINTENANCE Final Result * Colonoscopy (10/31/2014) Colonoscopy Normal Normal Narrative Joy Barnes - 10/31/2014 Tubular adenoma Historical Provider HEALTH MAINTENANCE Final Result from Last 3 Months or Most Recently Relevant to Health Maintenance Insurance MEDICARE [facility] Advance Directives Documents on File Type Date Recorded Patient Special Education Aide Expl anation Advance Directives and Living Will 10/31/2024 12:54 PM Kwadwo Emma Mason HCP Healthcare Agents on File Name Relationship Healthcare Agent Relationshi p Communication Mary Marlon Daughter Health Care Agent Kwadwo [place] Spouse First Alternate Health Car e Agent Care Teams Load Test Mechanic Relationship Specialty Start Date End Date Maria Guadalupe Carrizales FNP [address] [place] [phone] PCP - General Family Medicine 03/24/22 Paramjit Iglesias MD [address] [place] [phone] Gastroenterology 09/18/24
--- OUTSIDE RECORDS SUMMARY | 2025-05-01 13:01 | XMS_ITS | Encounter Summary ---
Author Organization [employer] Address [address] [facility] [address] [address] [place] [address] Care Team Providers Care Lab Clerk Name Role Phone PamelaMaria Guadalupe musa PETER Primary Care Provider [phone] Paramjit Iglesias MD Unavailable [phone] Encounter Details Date Type Department Care Team (Late st Contact Info) Description 08/27/2023 Orders Only [facility] [address] [place], [place] [phone] Armin Melara MD [address] [place], [place] [phone] Acute left-sided low back pain without sciatica [...] Description 07/09/2025 10:00 AM EST Office Visit [facility] [address] [place] [address] Maria Guadalupe Carrizales FNP [address] [place] [address] documented as of this encounter Visit Diagnoses Diagnosis Acute left-sided low back pain without sciatica- Primary documented in this encounter Additional Health Concerns Assessment Noted Time PHQ-9 Depression Total Score: 2 12/16/19 23 9:21 AM EDT documented as of this encounter Care Teams Lab Clerk Relationship Specialty Start Date End Date Maria Guadalupe Carrizales FNP [address] [place] [phone] PCP - General Family Medicine 03/24/22 Paramjit Iglesias MD [address] [place] [phone] Gastroenterology 09/18/24 documented as of this encounter
== END 2025-05-01 10:42 | disposition home or self-care (01) ==
LOC: HO.MAMMO 10:41
PROVIDERS: PCP Registered Nurse; Visit Provider Registered Nurse
DX: Z12.31 Encounter for screening mammogram for malignant neoplasm of breast (principal)
CPT/HCPCS: 77063; 77067

== ENCOUNTER → 2025-05-01 11:00 | Outpatient (BNV) | payer MEDICARE, MEDICAID, SELFPAY | PROVIDERS: PCP Registered Nurse; Visit Provider Internal Medicine | DX: Z12.31 Encounter for screening mammogram for malignant neoplasm of breast (principal) | CPT/HCPCS: 77063; 77067 ==

== ENCOUNTER 2025-05-14 10:50 | Outpatient (AMB) | payer MEDICARE, MEDICAID, SELFPAY ==
--- NOTE | 2025-05-14 11:11 | A.OFFVIS_ITS ---
Vital Signs 05/14/25 11:15 Height 5 ft 3 in Weight 182 lb 8 oz BMI 32.3 BP 125/63 Blood Pressure Location Lt brachial Position Sitting Pulse 79 Pulse Source Pulse Oximeter Pulse Oximetry (%) 99 Oxygen Delivery Method Room Air Intake Visit Reasons: Low back pain/bernardino from 11/17 & 12/01 Intake Note: Pain today 0/10 Assembly Repairer Required: Yes Assembly Repairer Language: Unix Systems Administrator Services: Assembly Repairer Present (Carol #[id number]) Information Interpreted: non-clinical & clinical Accompanied by: Spouse Allergies No Known Allergies (No Known Allergies*) Allergy (Verified 05/14/25 11:15) HPI HPI Low back pain/bernardino from 11/17 & 12/01: Details: Right knee pain 04/04, denies low back pain today HPI Comments Details: The patient is a 69-year-old female presenting with chronic right knee pain. The knee pain has been present for several years, although the exact duration is unclear. The patient reports that previous cortisone injections did not provide significant relief, with the last injection administered few months ago by her primary care physician, providing her less than 2 months pain relief. Denies previous knee surgery. Patient also has history of chronic low back pain, however reports no back pain today. The patient has a history of tricompartmental osteoarthritis in both knees, with the right knee being more severely affected. An x-ray conducted last summer confirmed this diagnosis, showing more pronounced degeneration in the lateral compartment of the right knee. The patient denies any history of knee surgery. The patient also has a history of diabetes mellitus, which she reports is well- controlled. - Onset: Chronic, present for several years - Quality: Aching, sharp, stabbing, heavy, tight - Location: Right knee, more severe than left - Exacerbating factors: Walking, lifting leg, climbing stairs, bending knee, cold weather - Relieving factors: Partial relief with Tylenol, Ibuprofen, tried lidocaine patch and cortisone injections-lasting less than 2 months - Interference: Pain is constant, worse at night after walking and daily activities, rated 9/10 in severity - Affect: Pain significantly impacts daily activities, causing fear of knee locking - Analgesia: Previous cortisone injections provided no significant relief - Activities of Daily Living: Pain interferes with walking and climbing stairs - Aberrant Drug Related Behaviors: None reported [facility] Medical History High cholesterol Arthritis Hypertension Diabetes Social History Current occupational status: retired 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 Alert and oriented. Mood and affect appropriate. Follows and participates in conversation appropriately. Respiratory effort is unlabored. No cough. No nasal discharge. Able to transition from sit to stand unassisted. Ambulates with bilaterally normal heel strike and toe off. Extrem General: Yes capillary refill normal, Yes no clubbing, cyanosis or edema and Yes no calf tenderness Right lower extremity: knee (Limited ROM due to pain) Details: normal to inspection, tenderness Location: of the patella and of the lateral joint line and crepitus; no swelling, no ecchymosis, no deformity and no unusual warmth Results Reviewed Results Reviewed: XR KNEE, RIGHT XR KNEE, LEFT 02/22/24 CLINICAL INFORMATION: Osteoarthritis of both knees. COMPARISON: 01/12/2022 TECHNIQUE: Three views of each knee. FINDINGS: RIGHT KNEE: Bones are osteopenic. Moderate to severe lateral compartment joint space narrowing is again noted, more pronounced at the posterior weightbearing surface, similar to prior. Tricompartmental marginal osteophytes. No joint effusion. No fractures. LEFT KNEE: Moderate lateral compartment joint space narrowing. Tricompartmental marginal osteophytes. Chondrocalcinosis. No joint effusion. Bones are osteopenic. No fractures. IMPRESSION: Tricompartmental osteoarthritis in both knees, most pronounced in the lateral compartments, right greater than left. No significant change. Assessment & Plan Assessment & Plan (1) Osteoarthritis of right knee: Code(s): M17.11 - Unilateral primary osteoarthritis, right knee Category: Medical (2) Chronic pain of right knee: Code(s): M25.561 - Pain in right knee; G89.29 - Other chronic pain Category: Medical Plan The plan for managing the patient's chronic right knee pain involves considering interventional procedures due to the lack of relief from previous cortisone injections and oral and topical medications. Two procedures were discussed today: genicular radiofrequency ablation (RFA) and Sprint PNS trial, both of which require a diagnostic block to assess suitability. The patient is leaning towards genicular RFA, and insurance approval will be sought for the genicular nerve blocks as initial and diagnostic step. Schedule Right knee diagnostic genicular nerve blocks with local and fluoroscopy. Expectations, risks and benefits were reviewed. Patient is aware she will be contacted to schedule this procedure. All questions and concerns have been answered and patient agreed with the treatment plan. Follow up after injections and sooner as needed. Patient was informed and verbally consented to the use of an ambient scribe for clinic note documentation during this visit. Coding Level of Care Code New Pt Level 4 (06947) Diagnoses Osteoarthritis of right knee M17.11 Chronic pain of right knee M25.561; G89.29
[2025-05-14 11:15] VITALS: BP 125/63; PULSE 79; O2SAT 99; BMI 32.3
== END 2025-05-14 11:59 | disposition home or self-care (01) ==
LOC: HO.PMC 10:51
PROVIDERS: PCP Registered Nurse; Visit Provider Nurse Practitioner Family
DX: M17.11 Unilateral primary osteoarthritis, right knee (principal); M25.561 Pain in right knee; G89.29 Other chronic pain
CPT/HCPCS: 99204

== ENCOUNTER → 2025-05-14 10:50 | Outpatient (BNVA) | payer MEDICARE, MEDICAID, SELFPAY | PROVIDERS: PCP Registered Nurse; Visit Provider Nurse Practitioner Family | DX: M17.11 Unilateral primary osteoarthritis, right knee (principal); M25.561 Pain in right knee; G89.29 Other chronic pain | CPT/HCPCS: 99202 ==

== ENCOUNTER 2025-05-24 10:51 | Outpatient (AMB) | payer MEDICARE, MEDICAID, SELFPAY ==
--- OUTSIDE RECORDS SUMMARY | 2024-07-13 09:55 | XMS_ITS ---
Author Organization [facility] Address [address] [place] [phone] Care Team Providers Care Transmission And Coordination Engineer Name Role Phone TERRI FUNES, ADENIKE Primary Care Provider Paramjit Irby Jr [phone] REASON FOR VISIT Patient presents today for a screening colonoscopy Encounters Encounter Location Date Provider Diagnosis [facility] [address] [place] [phone] 07/13/2024 Paramjit Iglesias Jr Plan Of Treatment No Information Progress Notes * OLIVE PENADOB: [birth year] (69 yo F)Acc No.[id number]:07/13/2024 Progress Notes Patient: OLIVE MONTEZ Provider: Aaron Iglesias MD :1955 A ge:68 Y S ex:Female Date:07/13/2024 Address:[address] [place], [place] [phone] Pcp:ADENIKE MURRAY MD Subjective: * Chief Complaints: [...] Iglesias MD Date: 09/13/2023 Generated for Bronwyn rasheed/Manas/eTbonnyitting on: 01:32 PM EDT
--- OUTSIDE RECORDS SUMMARY | 2024-11-16 09:55 | XMS_ITS ---
Author Organization [facility] Address [address] [place] [phone] Care Team Providers Care Shift Commander Name Role Phone TERRI FUNES, ADENIKE Primary Care Provider UnavailParamjit Gutierres Jr REASON FOR VISIT Patient presents today for a colon screening Encounters Encounter Location Date Provider Diagnosis [facility] [address] [place] [phone] 11/16/2024 Paramjit Iglesias Jr Plan Of Treatment No Information Progress Notes * OLIVE PENADOB: 5 (69 yo F)Acc No.[id number]:11/16/2024 Progress Notes Patient: OLIVE MONTEZ Provider: Aaron Iglesias MD :1955 A ge:69 Y S ex:Female Date:11/16/2024 Address:[address] [place], [place] [phone] Pcp:ADENIKE MURRAY MD Subjective: * Chief Complaints: [...] Iglesias MD Date: 0 11/16/2024 Generated for Brownyn rasheed/Manas/eTransmitting on: 01:32 PM EDT
[2025-05-24 11:01] VITALS: BMI 32.4
--- NOTE | 2025-05-24 11:01 | A.OFFVIS_ITS ---
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 in 2021 we discussed Right TKA and patient was going to move forward with surgery however surgery was never booked. Patient reports that both of her knees are quite painful, but the right knee is worse. She is not interested in surgery at this time and would like to talk about alternative treatment options. She has had cortisone injection with her PCP - which they are helpful She has met with pain mgmt anf they have talked about spincal stimulators that patient is considerirng. 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 in 2021 we discussed Right TKA and patient was going to move forward with surgery however surgery was never booked. Patient reports that both of her knees are painful, but the right knee is worse. She is not interested in surgery at this time and would like to talk about alternative treatment options. She has had cortisone injection with her PCP in the past- which they are helpful She has met with pain mgmt and they have talked about spinal simulators that patient is considering but wanted to meet with Ortho first to determine her best treatment plan. She is also not sure if her insurance will pay for the SPRINT device. 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 Site was prepped using aseptic technique. Patient tolerated the procedure well. Shoulders, Hips, Knees, Knee Large Joint Injection : Right Knee Coding Procedure code (CPT) selection complete Results Reviewed Results Reviewed: I personally reviewed relevant radiographs. Moderate lateral compartment OA bilateral knees Assessment & Plan Assessment & Plan (1) Osteoarthritis of right knee: Code(s): M17.11 - Unilateral primary osteoarthritis, right knee Category: Medical Plan: This is a pleasant young woman with right > left knee OA. She is not interested in surgery. I injected her right knee as she appears to be very uncomfortable. I recommend she go forward with the SPRINT device and that she follow up with pain management regarding this. (2) Diabetes: Code(s): E11.9 - Type 2 diabetes mellitus without complications Category: Medical Plan: I informed her of the hyperglycemic effects of steroids. Coding Level of Care Code Est Pt Level 4 (71367) Diagnoses Osteoarthritis of right knee M17.11 Diabetes E11.9 CPT Codes Shoulders, Hips, Knees, - Knee Large Joint Injection : Right Knee ([id number])
--- OUTSIDE RECORDS SUMMARY | 2025-05-24 13:32 | XMS_ITS | Encounter Summary ---
Author Organization [employer] Address [address] [place] [address] Care Team Providers Care Flight Coordinator Name Role Phone Maria Guadalupe Carrizales Primary Care Provider [phone] Paramjit Iglesias MD Unavailable [phone] Reason for Visit * Reason Comments Med Refill Encounter Details Date Type Department Care Team (Late st Contact Info) Description 12/10/2024 Refill [facility] [address] [place] [address] Maria Guadalupe Carrizales FNP [address] [place], [place] [id number] Essential hypertension Social History Tobacco Use Types [...] [facility] [address] [place] [address] Maria Guadalupe Carrizales FNP [address] [place] [address] documented as of this encounter Visit Diagnoses Diagnosis Essential hypertension Unspecified essential hypertension documented in this encounter Additional Health Concerns Assessment Noted Time PHQ-9 Depression Total Score: 0 11/12/19 24 8:48 AM EDT documented as of this encounter Care Teams Flight Coordinator Relationship Specialty Start Date End Date Maria Guadalupe Carrizales FNP [address] [place] [id number] PCP - General Family Medicine 03/24/22 Paramjit Iglesias MD [address] [place] [id number] Gastroenterology 09/18/24 documented as of this encounter
--- OUTSIDE RECORDS SUMMARY | 2025-05-24 13:32 | XMS_ITS | Encounter Summary ---
Author Organization [employer] Address [address] [place] [address] Care Team Providers Care Ccie Name Role Phone All Maria Guadalupe FNP Primary Care Provider [phone] Paramjit Iglesias MD Unavailable [phone] Encounter Details Date Type Department Care Team (Late st Contact Info) Description 04/03/2024 Orders Only [facility] [address] [place], [place] [phone] Provider, MD Dylon Social History Tobacco Use [...] Description 07/09/2025 10:00 AM EST Office Visit [facility] [address] [place] [address] Maria Guadalupe Carrizales FNP [address] [place] [address] documented as of this encounter Procedures Procedure [...] documented as of this encounter Care Teams Ccie Relationship Specialty Start Date End Date Maria Guadalupe Carrizales FNP [address] [place] [address] PCP - General Family Medicine 03/24/22 Paramjit Iglesias MD [address] [place] [id number] Gastroenterology 09/18/24 documented as of this encounter
--- OUTSIDE RECORDS SUMMARY | 2025-05-24 13:32 | XMS_ITS | Clinical Summary ---
Author Organization [employer] Address [address] [place] [address] Care Team Providers Care Assurance Senior Manager Name Role Phone Maria Guadalupe Carrizales Primary Care Provider [phone] Paramjit Iglesias MD Unavailable [phone] Allergies No known active allergies Medications glucose [...] at the level of L5-S1. Referral to [facility] pain management placed 10/30/24 Assessment & Plan (04/10/2025 8:15 AM EDT): -No bowel/bladder incontinence or saddle paresthesia. -Continue with symptomatic management, although goal for improved pain relief. Given muscle spasms, will trial tizanidine nightly as needed. Reviewed med safety and side effects. - Declines interest in physical therapy, but scheduled for [facility] pain management consult April 27 for further eval -Follow up precautions reviewed Assessment & Plan (10/30/2024 3:55 PM EDT): -No bowel/bladder incontinence or saddle paresthesia. Pain radiates down right leg. -Cont with symptomatic management and OTC analgesics -Previously declined physical therapy referral, but in agreement for [facility] pain management consult -Follow up precautions reviewed [...] extremities 06/29/2023 Overview (06/29/2023): -Chronic -Referred to [facility] Vascular 01/13/23 Primary localized osteoarthritis of knees, bilat eral 07/27/2022 Overview (05/22/2024): XR January 2024: Tricompartmental osteoarthritis in both knees, most pronounced in the lateral compartments, right greater than left. No significant change. - Previously following with [facility] Ortho - [facility] - last injection 04/06/24 right knee Assessment & Plan (04/10/2025 8:15 AM EDT): - Encouraged trial of topical Voltaren gel -Referral to reestablish with Ortho Assessment & Plan (05/22/2024 6:43 PM EDT): DME request for shower chair Assessment & Plan (02/20/2024 6:57 PM EDT): -Received injections at [facility] ortho in the past -Repeat bilateral knee XR -Refer to [facility] for cortisone injections if appropriate pending imaging results Assessment & Plan (07/27/2022 6:51 PM EST): -Received injections at [facility] ortho in the past -Continue with follow with [facility] Ortho, symptomatic management Routine health maintenance 07/27/2022 Overview (04/10/2025): OPH: Eye exam 08/08/24 at [facility]. No Retinopathy. Pap: 04/12/2019: HPV neg Colonoscopy: Last 2014, due 2019. Encouraged to f/up with GI. Referral re-sent 04/10/25 Mammo: BIRADS 1 on 03/08/24 DXA: osteopenia Feb 2024 Last PE: 04/09/25 AWV completed September 2024 HCP: completed 2024 Assessment & Plan (02/20/2024 7:00 PM EDT): -Confirm with [facility] if pt is past due for colonoscopy or due next year. Assessment & Plan (11/13/2023 7:19 PM EDT): Declined COVID vaccine 11/12/23 Assessment & Plan (07/01/2023 9:40 PM EST): -Last eye exam: Mar 2021 at [facility], scheduled Jul 2023 -Pap: 04/12/2019: HPV neg -Colonoscopy: due 10/24/2024 -Mammo: BIRADS 2 on 06/11/21. Ordered 12/15/22. Assessment & Plan (03/25/2023 4:28 PM EDT): -Last eye exam: Mar 2021 at [facility], due -Pap: 04/12/2019: HPV neg -Colonoscopy: due 10/24/2024 -Mammo: BIRADS 2 on 06/11/21. Ordered 12/15/22. Assessment & Plan (12/15/2022 9:50 AM EDT): -Last eye exam: Mar 2021 at [facility], due -Pap: 04/12/2019: HPV neg -Colonoscopy: due 10/24/2024 -Mammo: BIRADS 2 on 06/11/21. Ordered 12/15/22. Assessment & Plan (07/27/2022 6:55 PM EST): -Last eye exam: Mar 2021 at [facility], due -Pap: 04/12/2019: HPV neg -Colonoscopy: [...] Feb 2023 Eye exam: CEE 08/08/24 at [facility] (Dr. Miranda). No retinopathy. PNA: [...] Encounters Date Type Department Care Team Description 05/01/2025 Orders Only [facility] [address] [place] [address] Maria Guadalupe Carrizales FNP 04/09/2025 1:15 PM EDT Office Visit [facility] [address] [place] [address] Maria Guadalupe Carrizales FNP Essential hypertension (Primary Dx); Dietary counseling; Exercise counseling; Other hyperlipidemia; Type 2 diabetes mellitus without complication, without long-term current use of insulin ([facility]); Vitamin B12 deficiency; Osteopenia after menopause; Routine health maintenance; Primary localized osteoarthritis of knees, bilateral; Low back pain at multiple sites; Colon cancer screening; History of colon polyps 04/09/2025 Travel 04/06/2025 Telephone [facility] [address] [place] [address] Maria Guadalupe Carrizales FNP Chart Prep 03/12/2025 Orders Only GENERIC EXTERNAL DATA DEPARTMENT Provider, Generic External Data 03/12/2025 Refill [facility] [address] [place] [address] Maria Guadalupe Carrizales FNP Essential hypertension from Last 3 Months Immunizations Immunization Administration [...] [facility] [address] [place] [address] Maria Guadalupe Carrizales, PRORATION CLERK [address] [place] [address] Health Maintenance Due Date Last Done Comments CT Colonography 1955 FIT DNA/Cologuard 1955 FIT 1955 FOBT 1955 Sigmoidoscopy 1955 Diabetes: Foot Exam 1965 Colonoscopy 11/01/2019 10/31/2014, 10/31/2014 Colorectal Cancer Screening 11/01/2019 COVID-19 Vaccine ( season) 2025 05/11/2022, 07/15/2021, 10/17/2020, Additional history exists Influenza Vaccine (#1) 2025 , 06/30/2023, 05/11/2022, Additional history exists Eye Exam 07/29/2025 07/29/2023 Alcohol/Substance Use Screening 09/25/2025 09/25/2024 Diabetes: Urine Protein Screening 09/25/2025 09/25/2024, 03/23/2023, 02/06/2022, Additional history exists Lipid Panel 09/25/2025 09/25/2024, 02/24, 02/06/2022, Additional history exists SDOH Screening 09/25/2025 09/25/2024 Diabetes: Hemoglobin A1C 10/07/2025 025, 10/30/2024, 05/22/2024, Additional history exists Tobacco Screening 10/30/2025 10/30/2024 Depression Screening 04/09/2026 04/09/2025, 04/09/20 25 Mammogram 05/01/2026 05/01/2025, 02/23, 05/01/2020, Additional history exists RSV Patients and Patients Aged 60 years [...] Procedure Name Priority Date/Time Associated Diagnosis Comments BI MAMMOGRAM SCREENING TOMOSYNTHESIS BILATERAL Routine 05/01/2025 11:04 AM EDT POCT GLYCATED HEMOGLOBIN, TOTAL Routine 04/09/2025 1:16 PM EDT Type 2 diabetes mellitus without complication, without long-term current use of insulin ([facility]) POCT GLUCOSE Routine 04/09/2025 1:15 PM EDT Type 2 diabetes mellitus without complication, without long-term current use of insulin ([facility]) SARS COV2/INFLUENZA A/B AND RSV RNA QL NAAT Routine 03/12/2025 10:25 AM EDT HEPATITIS C VIRAL RNA, QUANTITATIVE, REAL-TIME PCR Routine 09/25/2024 2:14 PM EST Routine health maintenance ALBUMIN, RANDOM URINE W/CREATININE Routine 09/25/2024 2:14 PM EST Routine health maintenance LIPID PANEL, STANDARD Routine 09/25/2024 2:14 PM EST Routine health maintenance DIABETES EYE EXAM Routine 07/29/2023 11:08 AM EST COLONOSCOPY Routine 10/31/2014 from Last 3 Months or Most Recently Relevant to Health Maintenance Results * BI Mammogram Screening Tomosynthesis Bilateral (05/01/2025 11:04 AM EDT) Anatomical Region Laterality Modality Breast Bilateral Mammography 05/01/2025 11:0 4 AM EDT Narrative 05/08/2025 5:19 PM EDT Isa [facility] [address] [place], [place] [address] Mammography Report Signed Patient: Renate Barnes MR#: [id number] : 1955 Acct:[id number] Age/Sex: 69 / F ADM Date: 05/01/25 Loc: HO.MAMMO Attending Dr: Maria Guadalupe Carrizales PRORATION CLERK Ordering Physician: Maria Guadalupe Carrizales Results: 2Benig n Date of Service: 05/01/25 Follow Up: 1 Year From Orig ina Mammogram Procedure(s): MM tomosynthesis screening BI Accession Number(s): [id number] cc: Maria Guadalupe Carrizales Reason For Exam: SCREENING EXAMINATION: MM SCREENING DIGITAL BREAST TOMOSYNTHESIS, BILATERAL CLINICAL INFORMATION: Screening. Asymptomatic. COMPARISON: Mammography: Comparison is made with available priors TECHNIQUE: Digital breast mammography with tomosynthesis is performed in both the craniocaudal and mediolateral oblique views along with computer-aided detection (CAD). FINDINGS: There are scattered areas of fibroglandular density. Bilateral circumscribed oval masses which wax and wane consistent with benign fibrocystic changes. There are no significant masses, abnormal calcifications, or other abnormalities. MM/MM tomosynthesis screening BI IMPRESSION: No mammographic evidence of malignancy. ASSESSMENT: BI-RADS Category 2: Benign RECOMMENDATION: Routine annual mammography screening. 1 year F/U This examination should not preclude the clinical evaluation of a suspicious palpable abnormality. This patient's information was entered into a reminder system with a target due date for their next mammogram. Electronically signed by: Renetta Hoyos DO 05/08/2025 05:16 PM EDT RP Dictated By: Renetta Hoyos DO Signed By: <Electronically signed by Rneetta Hoyos DO in OV> 05/08/25 1716 DD/ 1104 TD/TT: 05/01/25 1112 Human Resources Assistant: Procedure Note Donotuseinterpreter, Image - 05/08/2025 Isa [facility] [address] [place] [address] Mammography Report Signed Patient: Renate Barnes LMR#: [id number] : 5Acct:[id number] Age/Sex: 69 / FADM Date: 05/01/25 Loc: HO.MAMMO Attending Dr: Maria Guadalupe GREEN Ordering Physician: Maria Guadalupe CarrizalesPResults: 2Benig n Date of Service: 05/01/25Follow Up: 1 Year From [facility] Mammogram Procedure(s): MM tomosynthesis screening BI Accession Number(s): [id number] cc: Maria Guadalupe Carrizales Reason For Exam: SCREENING EXAMINATION: MM SCREENING DIGITAL BREAST TOMOSYNTHESIS, BILATERAL CLINICAL INFORMATION: Screening. Asymptomatic. COMPARISON: Mammography: Comparison is made with available priors TECHNIQUE: Digital breast mammography with tomosynthesis is performed in both the craniocaudal and mediolateral oblique views along with computer-aided detection (CAD). FINDINGS: There are scattered areas of fibroglandular density. Bilateral circumscribed oval masses which wax and wane consistent with benign fibrocystic changes. There are no significant masses, abnormal calcifications, or other abnormalities. MM/MM tomosynthesis screening BI IMPRESSION: No mammographic evidence of malignancy. ASSESSMENT: BI-RADS Category 2: Benign RECOMMENDATION: Routine annual mammography screening. 1 year F/U This examination should not preclude the clinical evaluation of a suspicious palpable abnormality. This patient's information was entered into a reminder system with a target due date for their next mammogram. Electronically signed by: Renetta Hoyos DO 05/08/2025 05:16 PM EDT RP Dictated By: Renetta Hoyos DO Signed By: <Electronically signed by Renetta Hoyos DO in OV> 05/08/25 1716 DD/ 1104 TD/TT: 05/01/25 1112 Human Resources Assistant: us Maria Guadalupe Carrizales PRORATION CLERK IMG BI PROCEDURES Final Result * (ABNORMAL) POCT A1c (04/09/2025 1:16 PM EDT) Hemoglobin A1C 6.4(A) 4.0 - 5.7 % QC Media Lot # Comment:[id number] Lot# Expiration Date Comment:10/30/2026 Blood 04/09/2025 1:16 PM EDT Maria Guadalupe Carrizales [facility] POINT OF CARE TEST ENTER/EDIT ORDERABLES Final Result * POCT glucose manually resulted (04/09/2025 1:15 PM EDT) Pathologist [facility] Glucose Blood, POC 143 60 - 200 mg/dL [employer] Lot # Comment:[id number] Lot# Expiration Date Comment:07/14/2025 Blood Capillary blood specimen / Unknown 04/09/2025 1:15 PM EDT us [facility] POINT OF [facility]ARE [facility] ENTER/EDIT ORDERABLES Final Result * (ABNORMAL) SARS-CoV-2 RNA, Influenza A/B, and RSV RNA, Ql NAAT (03/12/2025 10:25 AM EDT) Pathologist [facility] Influenza A PCR NEGATIVE Negative [facility] Influenza B PCR NEGATIVE Negative [facility] Resp Syncy Virus RNA Qual PCR NEGATIVE Negative [facility] SARS COV2 PCR POSITIVE(A) Negative [facility] Comment:All test results mus t be [...] use by authorized laboratories.Testing performed on the [facility] GeneXpert utilizingreal-time RT-PCR.All SARS CoV2 and positive influenza A/B results arereported to [facility]. 03/12/2025 10:2 5 AM EDT 03/12/2025 10:28 AM EDT Generic External Data Provider LAB MICROBIOLOGY - GENERAL ORDERABLES Final Result Performing Organization Address [facility] Co de Phone Number [facility] [address] [place] [phone] * Hepatitis C Viral RNA, Quantitative, Real-Time PCR (09/25/2024 2:14 PM EST) Pathologist [facility] Hepatitis C Viral Load <15 NOT DETECTED NOT DETECTED IU/mL [facility] HCV Log PCR <1.18 NOT DETECTED NOT DETECTED Log IU/mL [facility] Comment:For additional infor severiano, please refer tohttp://education.Cardiovascular Simulation/faq/CUB70v3(This link is being provided for informational/educational purposes only.)THIS TEST WAS PERFORMED AT:[facility] [place] [phone] MORALES MD Blood 09/25/2024 2:14 PM EST 09/25/2024 4:20 PM EST Maria Guadalupe Carrizales PRORATION CLERK LAB BLOOD ORDERABLES Final Res ult Performing Organization Address [facility] Co de Phone Number [facility] [address] [place] [phone] * Albumin, Random Urine W/Creatinine (09/25/2024 2:14 PM EST) Pathologist [facility] Creatinine, Urine 111.18 mg/dL [facility] Microalbumin Urine 21.0 mg/L [facility] Microalbum Creatinine Ratio Ur 18.8 <30 ug/mg cr [facility] Comment:Albumin/Creatinine R atio Reference Ranges: Normal: < 30 ug/mg creatinine Microalbuminuria: 30 - 300 ug/mg creatinineClinical Albuminuria: > 300 ug/mg creatinine Urine 09/25/2024 2:14 PM EST 09/25/2024 4:12 PM EST Maria Guadalupe Carrizales PRORATION CLERK LAB URINE ORDERABLES Final Res ult Performing Organization Address [facility] de Phone Number [facility] [address] [place] [phone] * Lipid Panel, Standard (09/25/2024 2:14 PM EST) Triglycerides 96 <150 mg/dL [facility] Comment:Desirable Triglyceri de: less than 150 mg/dLBorderline High Triglyceride 150-199 mg/dLHigh Triglyceride: 200-499 mg/dLVery High Triglyceride: greater than or equal to 5OO mg/dL Cholesterol 132 <200 mg/dL [facility] Comment:Desirable Cholestero l: less than 200 mg/dLBorderline High Cholesterol: 200-239 mg/dLHigh Cholesterol: greater than 239 mg/dL LDL Cholesterol Calculated 64 <100 mg/dL [facility] Comment:Desirable LDL: less than 100 mg/dLNear Optimal/Above Optimal LDL: 110- 129 mg/dLBorderline High LDL: 130-159 mg/dLHigh LDL: 160-189 mg/dLVery High LDL: greater than or equal to 190 mg/dL HDL Cholesterol 49 >40 mg/dL [facility] Comment:Desirable HDL: great er than 40 mg/dL Note: This HDL assay may give artificially low results in patients with liver disease. Blood Venous blood specimen / Unknown 09/25/2024 2:14 PM EST 09/25/2024 4:20 PM EST us Maria Guadalupe Carrizales PRORATION CLERK LAB BLOOD ORDERABLES Final Res ult Performing Organization Address [facility] Co de Phone Number [facility] [address] [place] [phone] * Diabetes Eye Exam (07/29/2023 11:08 AM EST) us Historical Provider HEALTH MAINTENANCE Final Result * Colonoscopy (10/31/2014) Colonoscopy Normal Normal Narrative Joy Barnes - 10/31/2014 Tubular adenoma us Historical Provider HEALTH MAINTENANCE Final Result from Last 3 Months or Most Recently Relevant to Health Maintenance Insurance MEDICARE Member Subscriber Plan / Payer (Ef fective 2020-Present) Name:Renate Barnes Member ID:[id number] Relation to Subscriber:Self Name:Renate Barnes Subscriber ID:[id number] Payer ID:STATE Group ID:Not on file Type:Medicare Address: [facility].[address] [address] [facility] Advance Directives Documents on File Type Date Recorded Patient Automatic Grinder Operator Expl anation Advance Directives and Living Will 10/31/2024 12:54 PM Kwadwo CamarilloMary Mason HCP Healthcare Agents on File Name Relationship Healthcare Agent Relationshi p Communication Mary Marlon Daughter Health Care Agent Kwadwo Camarillo Spouse First Alternate Health Car e Agent Care Teams Assurance Senior Manager Relationship Specialty Start Date End Date Maria Guadalupe Carrizales FNP [address] [place] [address] PCP - General Family Medicine 03/24/22 Paramjit Iglesias MD [address] [place] [address] Gastroenterology 09/18/24
--- OUTSIDE RECORDS SUMMARY | 2025-05-24 13:32 | XMS_ITS | Patient Health Record ---
Author Organization [facility] Address [address] [place] [address] Care Team Providers Care Mud Engineer Name Role Phone ADENIKE MURRAY MD Primary Care Provider Paramjit Irby Jr Reason For Referral No Information Encounters Encounter Location Date Provider Diagnosis [facility] [address] [place] [address] 11/16/2024 Paramjit Iglesias Jr Plan Of Treatment No Information Insurance Providers Payer Name Payer Address Payer Phone Subscriber Number Group Number Insured Name Patient Relationship to Insured Coverage Start Date Coverage End Date MEDICARE OF [place] [address] [place] [id number] [id number] OLIVE PENA Self - patient is the insured MEDICAID OF [facility] [address] [place] [address] [id number] OLIVE PENA Self - patient is the insured
--- OUTSIDE RECORDS SUMMARY | 2025-05-24 13:32 | XMS_ITS | Encounter Summary ---
Author Organization [employer] Address [address] [facility] [address] [place] [address] Care Team Providers Care Flask Fitter Name Role Phone Maria Guadalupe Carrizales Primary Care Provider [phone] Paramjit Iglesias MD Unavailable [phone] Encounter Details Date Type Department Care Team (Late st Contact Info) Description 10/06/2024 Orders Only [facility] [address] [place], [place] [phone] Maria Guadalupe Carrizales FNP [address] [place], [place] [phone] Vitamin B12 deficiency (Primary Dx) Social History [...] Description 07/09/2025 10:00 AM EST Office Visit [facility] [address] [place] [address] Maria Guadalupe Carrizales FNP [address] [place] [address] documented as of this encounter Visit Diagnoses Diagnosis Vitamin B12 deficiency- Primary Other B-complex deficiencies documented in this encounter Additional Health Concerns Assessment Noted Time PHQ-9 Depression Total Score: 0 11/12/19 24 8:48 AM EDT documented as of this encounter Care Teams Flask Fitter Relationship Specialty Start Date End Date Maria Guadalupe Carrizales FNP [address] [place] [address] PCP - General Family Medicine 03/24/22 Paramjit Iglesias MD [address] [place] [address] Gastroenterology 09/18/24 documented as of this encounter
--- OUTSIDE RECORDS SUMMARY | 2025-05-24 13:32 | XMS_ITS | Encounter Summary ---
Author Organization [employer] Address [address] [place] [address] Care Team Providers Care Fisher Gill Net Name Role Phone All Maria Guadalupe FNP Primary Care Provider [phone] Paramjit Iglesias MD Unavailable [phone] Encounter Details Date Type Department Care Team (Late st Contact Info) Description 03/22/2024 Orders Only [facility] [address] [place] [address] Provider, MD Dylon Social History Tobacco Use [...] 07/09/2025 10:00 AM EST Office Visit [facility] [address] [place] [address] Maria Guadalupe Carrizales FNP [address] [place] [address] documented as of this encounter Procedures Procedure [...] documented as of this encounter Care Teams Fisher Gill Net Relationship Specialty Start Date End Date Maria Guadalupe Carrizales FNP [address] [place] [address] PCP - General Family Medicine 03/24/22 Paramjit Iglesias MD [address] [place] [phone] Gastroenterology 09/18/24 documented as of this encounter
--- OUTSIDE RECORDS SUMMARY | 2025-05-24 13:33 | XMS_ITS | Encounter Summary ---
Author Organization [employer] Address [address] [place] [address] Care Team Providers Care Inpatient Nursing Aide Name Role Phone PamelaMaria Guadalupe musa PETER Primary Care Provider [phone] Paramjit Iglesias MD Unavailable [phone] Encounter Details Date Type Department Care Team (Late st Contact Info) Description 08/27/2023 Orders Only [facility] [address] [place], [place] [phone] Armin Melara MD [address] [place], [place] [phone] Acute left-sided low back pain without sciatica [...] 07/09/2025 10:00 AM EST Office Visit [facility] [address] [place] [address] Maria Guadalupe Carrizales FNP [address] [place] [address] documented as of this encounter Visit Diagnoses Diagnosis Acute left-sided low back pain without sciatica- Primary documented in this encounter Additional Health Concerns Assessment Noted Time PHQ-9 Depression Total Score: 2 12/16/19 23 9:21 AM EDT documented as of this encounter Care Teams Inpatient Nursing Aide Relationship Specialty Start Date End Date Maria Guadalupe Carrizales FNP [address] [place] [address] PCP - General Family Medicine 03/24/22 Paramjit Iglesias MD [address] [place] [phone] Gastroenterology 09/18/24 documented as of this encounter
--- OUTSIDE RECORDS SUMMARY | 2025-05-24 13:33 | XMS_ITS | Encounter Summary ---
Author Organization [employer] Address [address] [place] [address] Care Team Providers Care Blender Snuff Name Role Phone PamelaMaria Guadalupe musa PETER Primary Care Provider [phone] Paramjit Iglesias MD Unavailable [phone] Encounter Details Date Type Department Care Team (Late st Contact Info) Description 06/10/2023 Abstract [facility] [address] [place] [address] Joy Barnes Social History Tobacco Use Types [...] Office Visit [facility] [address] [place] [address] Maria Guadalupe Carrizales FNP [address] [place] [address] documented as of this encounter Procedures Procedure [...] documented as of this encounter Care Teams Blender Snuff Relationship Specialty Start Date End Date Maria Guadalupe Carrizaels FNP [address] [place] [address] PCP - General Family Medicine 03/24/22 Paramjit Iglesias MD [address] [place] [phone] Gastroenterology 09/18/24 documented as of this encounter
--- OUTSIDE RECORDS SUMMARY | 2025-05-24 13:33 | XMS_ITS | Encounter Summary ---
Author Organization [employer] Address [address] [facility] 7t [place] [address] Care Team Providers Care Char Filter Operator Helper Name Role Phone Maria Guadalupe Carrizales Primary Care Provider [phone] Paramjit Iglesias MD Unavailable [phone] Encounter Details Date Type Department Care Team (Late st Contact Info) Description 07/07/2022 Abstract [facility] PEDIATRICS [address] [place] [address] Provider, MD Dylon Social History Tobacco Use [...] Description 07/09/2025 10:00 AM EST Office Visit [facility] MED & PEDS [address] [place] [address] Maria Guadalupe Carrizales FNP [address] [place] [address] documented as of this encounter Visit Diagnoses Not on filedocumented in this encounter Care Teams Char Filter Operator Helper Relationship Specialty Start Date End Date Maria Guadalupe Carrizales FNP [address] [place] [address] PCP - General Family Medicine 03/24/22 Paramjit Iglesias MD [address] [place] [address] Gastroenterology 09/18/24 documented as of this encounter
== END 2025-05-24 11:52 | disposition home or self-care (01) ==
LOC: HO.HOS 10:51
PROVIDERS: PCP Registered Nurse; Visit Provider Orthopaedic Surgery
DX: M17.11 Unilateral primary osteoarthritis, right knee (principal); E11.9 Type 2 diabetes mellitus without complications
CPT/HCPCS: 20610; 99203

== ENCOUNTER → 2025-05-24 10:51 | Outpatient (BNVA) | payer MEDICARE, MEDICAID, SELFPAY | PROVIDERS: PCP Registered Nurse; Visit Provider Orthopaedic Surgery | DX: M17.11 Unilateral primary osteoarthritis, right knee (principal); E11.9 Type 2 diabetes mellitus without complications | CPT/HCPCS: 20610; 99202; J0665; J1100; J2003 ==

== ENCOUNTER 2025-07-03 06:20 | Outpatient (REF) | payer MEDICARE, MEDICAID, SELFPAY ==
--- OUTSIDE RECORDS SUMMARY | 2024-07-13 08:55 | XMS_ITS ---
Author Organization [facility] Address [address] [place] [phone] Care Team Providers Care Microsoft Infrastructure Consultant Name Role Phone TERRI FUNES, ADENIKE Primary Care Provider Paramjit Irby Jr [phone] REASON FOR VISIT Patient presents today for a screening colonoscopy Encounters Encounter Location Date Provider Diagnosis [facility] [address] [place] [phone] 07/13/2024 Paramjit Iglesias Jr Plan Of Treatment No Information Progress Notes * OLIVE PENADOB: 5 (69 yo F)Acc No.[id number]:07/13/2024 Progress Notes Patient: OLIVE MONTEZ Provider: Aaron Iglesias MD :1955 A ge:68 Y S ex:Female Date:07/13/2024 Address:[address] [place], [place] [id number] Pcp:ADENIKE MURRAY MD Subjective: * Chief Complaints: * P atient presents today for a screening colonoscopy Billing Information: * Procedure Codes: * The named appointment provid er may or may not be the originator of this progress note, and it is not deemed complete until electronically signed by the appointment provider. Sign off status: Pending * Provider: Aaron Iglesias MD Date: 09/13/2023 Generated for Bronwyn rasheed/Manas/Roseanna on: 09/03/2024 06:23 AM EST
--- OUTSIDE RECORDS SUMMARY | 2024-11-16 08:55 | XMS_ITS ---
Author Organization [facility] Address [address] [place] [phone] Care Team Providers Care Feller Buncher Operator Name Role Phone TERRI FUNES, ADENIKE Primary Care Provider UnavailParamjit Gutierres Jr REASON FOR VISIT Patient presents today for a colon screening Encounters Encounter Location Date Provider Diagnosis [facility] [address] [place] [phone] 11/16/2024 Paramjit Iglesias Jr Plan Of Treatment No Information Progress Notes * OLIVE PENADOB: 5 (69 yo F)Acc No.[id number]:11/16/2024 Progress Notes Patient: OLIVE MONTEZ Provider: Aaron Iglesias MD :1955 A ge:69 Y S ex:Female Date:11/16/2024 Address:[address] [place], [place] [id number] Pcp:ADENIKE MURRAY MD Subjective: * Chief Complaints: * P atient presents today for a colon screening Billing Information: * Procedure Codes: * The named appointment provid er may or may not be the originator of this progress note, and it is not deemed complete until electronically signed by the appointment provider. Sign off status: Pending * Provider: Aaron Iglesias MD Date: 0 11/16/2024 Generated for Bronwyn rasheed/Manas/Roseanna on: 1 09/03/2024 06:23 AM EST
--- NOTE | ~2025-07-03 | FL_ITS ---
EXAMINATION: FL GUIDANCE ONLY HISTORY: M25.561 - Pain in right knee COMPARISON: None available. TECHNIQUE: Fluoroscopy time: 18 seconds. Cumulative Dose: 3.00 mGy. DAP: 645.60 mGycm2 Images: 2. FINDINGS: Fluoroscopic spot films of the right knee in the lateral projection demonstrate needles superimposed on the distal femur and proximal tibia. FL/FL guidance in treatment room IMPRESSION: Fluoroscopy during procedure. Please see procedure report for additional information. Electronically signed by: Sahil Nayak MD 07/03/2025 01:02 PM SAHARA CHAPMAN
--- OUTSIDE RECORDS SUMMARY | 2025-07-03 06:23 | XMS_ITS | Encounter Summary ---
Author Organization [employer] Address [address] [facility] 7t [place] [address] Care Team Providers Care Sap Treasury Consultant Name Role Phone Maria Guadalupe Carrizales Primary Care Provider [phone] Paramjit Iglesias MD Unavailable [phone] Encounter Details Date Type Department Care Team (Late st Contact Info) Description 10/06/2024 Orders Only [facility] MED & PEDS [address] [place], [place] [phone] Maria Guadalupe Carrizales FNP [address] [place], [place] [phone] Vitamin B12 deficiency (Primary Dx) Social History [...] Description 07/09/2025 10:00 AM EST Office Visit [facility] MED & PEDS [address] [place] [address] Maria Guadalupe Carrizales FNP [address] [place] [address] documented as of this encounter Visit Diagnoses Diagnosis Vitamin B12 deficiency- Primary Other B-complex deficiencies documented in this encounter Additional Health Concerns Assessment Noted Time PHQ-9 Depression Total Score: 0 11/12/19 24 8:48 AM EDT documented as of this encounter Care Teams Sap Treasury Consultant Relationship Specialty Start Date End Date Maria Guadalupe Carrizales FNP [address] [place] [address] PCP - General Family Medicine 03/24/22 Paramjit Iglesias MD [address] [place] [address] Gastroenterology 09/18/24 documented as of this encounter
--- OUTSIDE RECORDS SUMMARY | 2025-07-03 06:23 | XMS_ITS | Encounter Summary ---
Author Organization [employer] Address [address] [facility] [address] 7[address] [place] [address] Care Team Providers Care Lactation Consultant Name Role Phone All Maria Guadalupe FNP Primary Care Provider [phone] Paramjit Iglesias MD Unavailable [phone] Encounter Details Date Type Department Care Team (Late st Contact Info) Description 03/22/2024 Orders Only [facility] MEDICINE [address] [place] [address] Provider, MD Dylon Social History Tobacco Use [...] Description 07/09/2025 10:00 AM EST Office Visit [facility] MED & PEDS [address] [place] [address] Maria Guadalupe Carrizales FNP [address] [place] [address] documented as of this encounter Procedures Procedure [...] documented as of this encounter Care Teams Lactation Consultant Relationship Specialty Start Date End Date Maria Guadalupe Carrizales FNP [address] [place] [address] PCP - General Family Medicine 03/24/22 Paramjit Iglesias MD [address] [place] [address] Gastroenterology 09/18/24 documented as of this encounter
--- OUTSIDE RECORDS SUMMARY | 2025-07-03 06:23 | XMS_ITS | Encounter Summary ---
Author Organization [employer] Address [address] [facility] 7t [place] [address] Care Team Providers Care Work Over Rig Operator Name Role Phone Maria Guadalupe Carrizales Primary Care Provider [phone] Paramjit Iglesias MD Unavailable Reason for Visit * Reason Comments Pre-visit Planning SDOH was already com pleted Encounter Details Date Type Department Care Team ([facility] st Contact Info) Description 07/02/2025 Patient Outreach [facility] MED & PEDS [address] [place] [address] Maria Guadalupe Carrizales FNP [address] [place], [place] [phone] Pre-visit Planning (SDOH was already completed ) Social History Tobacco Use Types Packs/Day [...] as of this encounter Progress Notes * Juanita Barraza - 07/02/2025 2:51 PM EST CC Juanita Chang placed successful outbound call to patient for pre-visit planning. Patient name and confirmed by patient. Patient confirms appt date and time, and has transportation arrangements. Patient's biggest concern for appointment at this time is no concerns. Appropriate screenings completed in anticipation of appointment. documented in this encounter Plan of Treatment Upcoming Encounters Date Type Department Care Team ([facility] st Contact Info) Description 07/09/2025 10:00 AM EST Office Visit [facility] MED & PEDS [address] [place], [place] [phone] Maria Guadalupe Carrizales FNP [address] [place], [place] [phone] documented as of this encounter Goals Goal Patient Goal Type Associated Problems Recent Progress Patient-Stated? Author Help patients manage their type 2 diabetes Care Plan Help patients manage their type 2 diabetes No Juanita Barraza Weekly blood pressure task Care Plan Weekly blood pressure task No Madi, Juanita Help patients manage their type 2 diabetes Care Plan Help patients manage their type 2 diabetes No Madi, Juanita Patient has chronic kidney disease Care Plan Patient has chronic kidney disease No Madi, Juanita Weekly blood pressure task Care Plan Weekly blood pressure task No Madi Juanita Patient has chronic kidney disease Care Plan Patient has chronic kidney disease No Lin Barrazat documented as of this encounter Visit Diagnoses Not on filedocumented in this encounter Additional Health Concerns Active Problems Noted Date Diagnosed Date Help patients manage their type 2 diabetes 07/02 Weekly blood pressure task 07/02/2025 Help patients manage their type 2 diabetes 07/02 Patient has chronic kidney disease 07/02/2025 Weekly blood pressure task 07/02/2025 Patient has chronic kidney disease 07/02/2025 Assessment Noted Time PHQ-9 Depression Total Score: 1 04/09/20 25 1:17 PM EDT documented as of this encounter Care Teams Work Over Rig Operator Relationship Specialty Start Date End Date Maria Guadalupe Carrizales FNP [address] [place] [address] PCP - General Family Medicine 03/24/22 Paramjit Iglesias MD [address] [place] [address] Gastroenterology 09/18/24 documented as of this encounter
--- OUTSIDE RECORDS SUMMARY | 2025-07-03 06:23 | XMS_ITS | Encounter Summary ---
Author Organization [employer] Address [address] [facility] 7t [place] [address] Care Team Providers Care Auto Body Technician Name Role Phone Maria Guadalupe Carrizales Primary Care Provider [phone] Paramjit Iglesias MD Unavailable [phone] Encounter Details Date Type Department Care Team (Late st Contact Info) Description 07/07/2022 Abstract [facility] PEDIATRICS [address] [place] [address] Provider, MD Dylon Social History Tobacco Use [...] Description 07/09/2025 10:00 AM EST Office Visit [facility] MED & PEDS [address] [place] [address] Maria Guadalupe Carrizales FNP [address] [place] [address] documented as of this encounter Visit Diagnoses Not on filedocumented in this encounter Care Teams Auto Body Technician Relationship Specialty Start Date End Date Maria Guadalupe Carrizales FNP [address] [place] [address] PCP - General Family Medicine 03/24/22 Paramjit Iglesias MD [address] [place] [address] Gastroenterology 09/18/24 documented as of this encounter
--- OUTSIDE RECORDS SUMMARY | 2025-07-03 06:23 | XMS_ITS | Patient Health Record ---
Author Organization [facility] Address [address] [place] [address] Care Team Providers Care Explosive Operator Name Role Phone ADENIKE MURRAY MD Primary Care Provider Paramjit Irby Jr [phone] Reason For Referral No Information Encounters Encounter Location Date Provider Diagnosis [facility] [address] [place] [address] 11/16/2024 Paramjit Iglesias Jr Plan Of Treatment No Information Insurance Providers Payer Name Payer Address Payer Phone Subscriber Number Group Number Insured Name Patient Relationship to Insured Coverage Start Date Coverage End Date [place] OF [place] [address] [place] [address] [id number] OLIVE PENA Self - patient is the insured MEDICAID OF [facility] [address] [place] [phone] [id number] OLIVE PENA Self - patient is the insured
--- OUTSIDE RECORDS SUMMARY | 2025-07-03 06:23 | XMS_ITS | Encounter Summary ---
Author Organization [employer] Address [address] [facility] [address] 7[address] [place] [address] Care Team Providers Care Machinist General Name Role Phone Maria Guadalupe Carrizales Primary Care Provider [phone] Paramjit Iglesias MD Unavailable [phone] Reason for Visit * Reason Comments Med Refill Encounter Details Date Type Department Care Team (Late st Contact Info) Description 12/10/2024 Refill [facility] MEDICINE [address] [place] [address] Maria Guadalupe Carrizales FNP [address] [place], [place] [phone] Essential hypertension Social History Tobacco Use Types [facility] [address] [place] [address] Maria Guadalupe Carrizales FNP [address] [place] [address] documented as of this encounter Visit Diagnoses Diagnosis Essential hypertension Unspecified essential hypertension documented in this encounter Additional Health Concerns Assessment Noted Time PHQ-9 Depression Total Score: 0 11/12/19 24 8:48 AM EDT documented as of this encounter Care Teams Machinist General Relationship Specialty Start Date End Date Maria Guadalupe Carrizales FNP [address] [place] [address] PCP - General Family Medicine 03/24/22 Paramjit Iglesias MD [address] [place] [address] Gastroenterology 09/18/24 documented as of this encounter
--- OUTSIDE RECORDS SUMMARY | 2025-07-03 06:23 | XMS_ITS | Encounter Summary ---
Author Organization [employer] Address [address] [facility] [address] 7[address] [place] [address] Care Team Providers Care Tipping Machine Operator Name Role Phone Maria Guadalupe Carrizales Primary Care Provider [phone] Paramjit Iglesias MD Unavailable [phone] Encounter Details Date Type Department Care Team (Late st Contact Info) Description 04/03/2024 Orders Only [facility] MED & PEDS [address] [place], [place] [phone] Provider, MD Dylon Social History Tobacco Use [...] 10:00 AM EST Office Visit [facility] MED & PEDS [address] [place] [address] Maria Guadalupe Carrizales FNP [address] [place] [address] documented as of this encounter Procedures Procedure [...] documented as of this encounter Care Teams Tipping Machine Operator Relationship Specialty Start Date End Date Maria Guadalupe Carrizales FNP [address] [place] [address] PCP - General Family Medicine 03/24/22 Paramjit Iglesias MD [address] [place] [address] Gastroenterology 09/18/24 documented as of this encounter
--- OUTSIDE RECORDS SUMMARY | 2025-07-03 06:23 | XMS_ITS | Clinical Summary ---
Author Organization [employer] Address [address] [facility] 7[address] [place] [address] Care Team Providers Care Building Architect Name Role Phone Maria Guadalupe Carrizales Primary Care Provider Paramjit Iglesias MD Unavailable [phone] Allergies No known active allergies Medications glucose blood (FREESTYLE LITE) test strip 1 strip at bed time. 021 Active Diclofenac Sodium 1 % gelIndications:Ar thritis Use 3-4 times daily as needed for knee pain 50 g 1 022 Active Additional Information Patient not taking.Reported on 09/25/2024 Blood Pressure Monitor kitIndications:Es sential hypertension Check BP daily and when symptomatic 1 kit 023 Active metFORMIN (Glucophage) 500 MG tabletIndications :Type 2 diabetes mellitus without complication, without long-term current use of insulin (HCC) TAKE 2 TABLETS BY MOUTH ONCE DAILY 180 tablet 3 024 Active ibuprofen 400 MG tablet TAKE 1 TO 2 TABLETS BY MOUTH EVERY 8 HOURS NEEDED FOR PAIN OR FEVER 100 tablet 3 025 Active cyanocobalamin (Vitamin B-12) 1000 MCG tablet Take 1 tablet (1,000 mcg) by mouth Once per day. 90 tablet 1 025 2025 Active simvastatin (Zocor) 20 MG tablet TAKE 1 TABLET BY MOUTH EVERY EVENING (FOR cholesterol) 90 tablet 3 025 Active hydroCHLOROthiazi de 12.5 MG tabletIndications :Essential hypertension TAKE 1 TABLET BY MOUTH EVERY DAY 90 tablet 1 025 Active calcium carbonate 1500 (600 Ca) MG tablet TAKE 1 TABLET BY MOUTH ONCE DAILY 90 tablet 3 025 Active lisinopril 40 MG tabletIndications :Essential hypertension TAKE 1 TABLET BY MOUTH EVERY DAY 90 tablet 3 5 10:13 AM EST 025 Active tiZANidine (Zanaflex) 2 MG tabletIndications :Low back pain at multiple sites Take 1-2 tablets (2-4 mg) by mouth if needed at bedtime for muscle spasms. 30 tablet 2 025 2025 Active Diclofenac Sodium 1 % gelIndications:Pr imary localized osteoarthritis of knees, bilateral Apply thin layer by topical route (quantity as directed on package insert) to affected area of pain 3 times daily as needed. 50 g 3 025 Active cholecalciferol VITAMIN D (Vitamin D-3) 50 MCG (1999 UT) tabletIndications :Vitamin D deficiency TAKE 1 TABLET BY MOUTH EVERY MORNING 90 tablet 1 5 10:31 AM EST 025 Active cholecalciferol VITAMIN D (Vitamin D-3) 50 MCG (1999 UT) tabletIndications :Vitamin D deficiency TAKE 1 TABLET BY MOUTH EVERY MORNING 90 tablet 1 025 2024 Discontinued Active Problems Problem Noted Date Diagnosed Date [...] at the level of L5-S1. Referral to [facility] pain management placed 10/30/24 Assessment & Plan (04/10/2025 8:15 AM EDT): -No bowel/bladder incontinence or saddle paresthesia. -Continue with symptomatic management, although goal for improved pain relief. Given muscle spasms, will trial tizanidine nightly as needed. Reviewed med safety and side effects. - Declines interest in physical therapy, but scheduled for [facility] pain management consult April 27 for further eval -Follow up precautions reviewed Assessment & Plan (10/30/2024 3:55 PM EDT): -No bowel/bladder incontinence or saddle paresthesia. Pain radiates down right leg. -Cont with symptomatic management and OTC analgesics -Previously declined physical therapy referral, but in agreement for [facility] pain management consult -Follow up precautions reviewed [...] extremities 06/29/2023 Overview (06/29/2023): -Chronic -Referred to [facility] Vascular 01/13/23 Primary localized osteoarthritis of knees, bilat eral 07/27/2022 Overview (05/22/2024): XR January 2024: Tricompartmental osteoarthritis in both knees, most pronounced in the lateral compartments, right greater than left. No significant change. - Previously following with [facility] Ortho - [facility] joint injection clinic - last injection 04/06/24 right knee Assessment & Plan (04/10/2025 8:15 AM EDT): - Encouraged trial of topical Voltaren gel -Referral to reestablish with Ortho Assessment & Plan (05/22/2024 6:43 PM EDT): DME request for shower chair Assessment & Plan (02/20/2024 6:57 PM EDT): -Received injections at [facility] ortho in the past -Repeat bilateral knee XR -Refer to [facility] for cortisone injections if appropriate pending imaging results Assessment & Plan (07/27/2022 6:51 PM EST): -Received injections at [facility] ortho in the past -Continue with follow with [facility] Ortho, symptomatic management Routine health maintenance 07/27/2022 Overview (04/10/2025): OPH: Eye exam 08/08/24 at [facility]. No Retinopathy. Pap: 04/12/2019: HPV neg Colonoscopy: Last 2014, due 2019. Encouraged to f/up with GI. Referral re-sent 04/10/25 Mammo: BIRADS 1 on 03/08/24 DXA: osteopenia Feb 2024 Last PE: 04/09/25 AWV completed September 2024 HCP: completed 2024 Assessment & Plan (02/20/2024 7:00 PM EDT): -Confirm with [facility] if pt is past due for colonoscopy or due next year. Assessment & Plan (11/13/2023 7:19 PM EDT): Declined COVID vaccine 11/12/23 Assessment & Plan (07/01/2023 9:40 PM EST): -Last eye exam: Mar 2021 at [facility], scheduled Jul 2023 -Pap: 04/12/2019: HPV neg -Colonoscopy: due 10/24/2024 -Mammo: BIRADS 2 on 06/11/21. Ordered 12/15/22. Assessment & Plan (03/25/2023 4:28 PM EDT): -Last eye exam: Mar 2021 at [facility], due -Pap: 04/12/2019: HPV neg -Colonoscopy: due 10/24/2024 -Mammo: BIRADS 2 on 06/11/21. Ordered 12/15/22. Assessment & Plan (12/15/2022 9:50 AM EDT): -Last eye exam: Mar 2021 at [facility], due -Pap: 04/12/2019: HPV neg -Colonoscopy: due 10/24/2024 -Mammo: BIRADS 2 on 06/11/21. Ordered 12/15/22. Assessment & Plan (07/27/2022 6:55 PM EST): -Last eye exam: Mar 2021 at [facility], due -Pap: 04/12/2019: HPV neg [...] Feb 2023 Eye exam: CEE 08/08/24 at [facility] (Dr. Hulseberg). No retinopathy. PNA: last 03/18/23 Tdap/Td: last [...] Encounters Date Type Department Care Team Description 07/02/2025 Patient Outreach [facility] [address] [place] [address] Maria Guadalupe Carrizales FNP Pre-visit Planning (SDOH was already completed ) 06/10/2025 Refill [facility] [address] [place] [address] Maria Guadalupe Carrizales FNP Vitamin D deficiency 05/01/2025 Orders Only [facility] [address] [place] [address] Maria Guadalupe Carrizales FNP 04/09/2025 1:15 PM EDT Office Visit [facility] [address] [place] [address] Maria Guadalupe Carrizales FNP Essential hypertension (Primary Dx); Dietary counseling; Exercise counseling; Other hyperlipidemia; Type 2 diabetes mellitus without complication, without long-term current use of insulin ([facility]/HCC); Vitamin B12 deficiency; Osteopenia after menopause; Routine health maintenance; Primary localized osteoarthritis of knees, bilateral; Low back pain at multiple sites; Colon cancer screening; History of colon polyps 04/09/2025 Travel 04/06/2025 Telephone [facility] [address] [place] [address] Maria Guadalupe Carrizales FNP Chart Prep from Last 3 Months Immunizations Immunization Administration [...] AM EST Office Visit [facility] [address] [place] [address] Maria Guadalupe Carrizales, WATER TENDER [address] [place] [address] Health Maintenance Due Date Last Done Comments [...] Diabetes: Urine Protein Screening 09/25/2025 09/25/2024, 03/23/2023, 03/23/2023, Additional history exists Lipid Panel 09/25/2025 09/25/2024, [...] on patient's age to complete this topic Goals Goal Patient Goal Type Associated Problems Recent Progress Patient-Stated? Author Help patients manage their type 2 diabetes Care Plan Help patients manage their type 2 diabetes No Juanita Barraza Weekly blood pressure task Care Plan Weekly blood pressure task No Juanita Barraza Help patients manage their type 2 diabetes Care Plan Help patients manage their type 2 diabetes No Juanita Barraza Patient has chronic kidney disease Care Plan Patient has chronic kidney disease No Juanita Barraza Weekly blood pressure task Care Plan Weekly blood pressure task No Juanita Barraza Patient has chronic kidney disease Care Plan Patient has chronic kidney disease No Juanita Barraza Procedures Procedure Name Priority Date/Time Associated Diagnosis Comments BI MAMMOGRAM SCREENING TOMOSYNTHESIS BILATERAL Routine 05/01/2025 11:04 AM EDT POCT GLYCATED HEMOGLOBIN, TOTAL Routine 04/09/2025 1:16 PM EDT Type 2 diabetes mellitus without complication, without long-term current use of insulin (CMS/HCC) POCT GLUCOSE Routine 04/09/2025 1:15 PM EDT Type 2 diabetes mellitus without complication, without long-term current use of insulin (CMS/HCC) HEPATITIS C VIRAL RNA, QUANTITATIVE, REAL-TIME PCR [...] EDT Narrative 05/08/2025 5:19 PM EDT [facility] [address] [place] [address] Mammography Report Signed Patient: Renate Barnes MR#: [id number] : 1955 Acct:[id number] Age/Sex: 69 / F ADM Date: 05/01/25 Loc: HO.MAMMO Attending Dr: Maria Guadalupe GREEN Ordering Physician: Maria Guadalupe Carrizales Results: 2Benig n Date of Service: 05/01/25 Follow Up: 1 Year From Orig ina Mammogram Procedure(s): MM tomosynthesis screening BI Accession Number(s): [id number] cc: Maria Guadalupe Carrizales Reason For Exam: [...] 05/08/25 1716 DD/ 1104 TD/TT: 05/01/25 1112 Boxing Inspector: Procedure Note Donotuseinterpreter, Image - 05/08/2025 [facility] [address] [place] [address] Mammography Report Signed Patient: Renate Barnes LMR#: [id number] : 5Acct:[id number] Age/Sex: 69 / FADM Date: 05/01/25 Loc: HO.MAMMO Attending Dr: Maria Guadalupe GREEN Ordering Physician: Maria Guadalupe CarrizalesPResults: 2Benig n Date of Service: 05/01/25Follow Up: 1 Year From Orig inal Mammogram Procedure(s): MM tomosynthesis screening BI Accession Number(s): [id number] cc: Maria Guadalupe Carrizales Reason For Exam: [...] 05/08/25 1716 DD/ 1104 TD/TT: 05/01/25 1112 Boxing Inspector: us Maria Guadalupe Carrizales WATER TENDER IMG BI PROCEDURES Final Result * (ABNORMAL) POCT A1c (04/09/2025 1:16 PM EDT) Hemoglobin A1C 6.4(A) 4.0 - 5.7 % QC Media Lot # Comment:[id number] Lot# Expiration Date Comment:10/30/2026 Blood 04/09/2025 1:16 PM EDT us Maria Guadalupe Carrizales WATER TENDER POINT OF CARE TEST ENTER/EDIT ORDERABLES Final Result * POCT glucose manually resulted (04/09/2025 1:15 PM EDT) Glucose Blood, POC 143 60 - 200 mg/dL QC Media Lot # Comment:[id number] Lot# Expiration Date Comment:07/14/2025 Blood Capillary blood specimen / Unknown 04/09/2025 1:15 PM EDT us Maria Guadalupe Carrizales WATER TENDER POINT OF CARE TEST ENTER/EDIT ORDERABLES Final Result * Hepatitis C Viral RNA, Quantitative, Real-Time PCR (09/25/2024 2:14 PM EST) Hepatitis C Viral Load <15 NOT DETECTED NOT DETECTED IU/mL [facility] HCV Log PCR <1.18 NOT DETECTED NOT DETECTED Log IU/mL [facility] Comment:For additional infor severiano, please refer tohttp://education.[employer] the [employer]/faq/XBE06a3(This link is being provided for informational/educational purposes only.)THIS TEST WAS PERFORMED AT:[facility] [place] [id number] MORALES MD Blood 09/25/2024 2:14 PM EST 09/25/2024 4:20 PM EST Maria Guadalupe Carrizales WATER TENDER LAB BLOOD ORDERABLES Final Res ult Performing Organization Address [facility] Co de Phone Number [facility] [address] [place] [phone] * Albumin, Random Urine W/Creatinine (09/25/2024 2:14 PM EST) Pathologist [facility] Creatinine, Urine 111.18 mg/dL [facility] Microalbumin Urine 21.0 mg/L [facility] Microalbum Creatinine Ratio Ur 18.8 <30 ug/mg cr [facility] Comment:Albumin/Creatinine R atio Reference Ranges: Normal: < 30 ug/mg creatinine Microalbuminuria: 30 - 300 ug/mg creatinineClinical Albuminuria: > 300 ug/mg creatinine Urine 09/25/2024 2:14 PM EST 09/25/2024 4:12 PM EST Maria Guadalupe Phallnecho WATER TENDER LAB URINE ORDERABLES Final Res ult Performing Organization Address [facility]/ZIP Co de Phone Number [facility] [address] [place] [phone] * Lipid Panel, Standard (09/25/2024 2:14 PM EST) Triglycerides 96 <150 mg/dL [facility] Comment:Desirable Triglyceri de: less than 150 mg/dLBorderline High Triglyceride 150-199 mg/dLHigh Triglyceride: 200-499 mg/dLVery High Triglyceride: greater than or equal to 5OO mg/dL Cholesterol 132 <200 mg/dL [facility] Comment:Desirable Cholestero l: less than 200 mg/dLBorderline High Cholesterol: 200-239 mg/dLHigh Cholesterol: greater than 239 mg/dL LDL Cholesterol Calculated 64 <100 mg/dL [facility] Comment:Desirable LDL: less than 100 mg/dLNear Optimal/Above Optimal LDL: 110- 129 mg/dLBorderline High LDL: 130-159 mg/dLHigh LDL: 160-189 mg/dLVery High LDL: greater than or equal to 190 mg/dL HDL Cholesterol 49 >40 mg/dL [facility] Comment:Desirable HDL: great er than 40 mg/dL Note: This HDL assay may give artificially low results in patients with liver disease. Blood Venous blood specimen / Unknown 09/25/2024 2:14 PM EST 09/25/2024 4:20 PM EST Maria Guadalupe Carrizales WATER TENDER LAB BLOOD ORDERABLES Final Res ult [facility] [address] [place] [phone] * Diabetes Eye Exam (07/29/2023 11:08 AM EST) Historical Provider HEALTH MAINTENANCE Final Result * Colonoscopy (10/31/2014) Colonoscopy Normal Normal Narrative Joy Barnes - 10/31/2014 Tubular adenoma Historical Provider HEALTH MAINTENANCE Final Result from Last 3 Months or Most Recently Relevant to Health Maintenance Additional Health Concerns Active Problems Noted Date Diagnosed Date Help patients manage their type 2 diabetes 07/02 Weekly blood pressure task 07/02/2025 Help patients manage their type 2 diabetes 07/02 Patient has chronic kidney disease 07/02/2025 Weekly blood pressure task 07/02/2025 Patient has chronic kidney disease 07/02/2025 Insurance MEDICARE [facility] Advance Directives Documents on File Type Date Recorded Patient Nurse Clinical Expl anation Advance Directives and Living Will 10/31/2024 12:54 PM Kwadwo Mason HCP Healthcare Agents on File Name Relationship Healthcare Agent Relationshi p Communication Mary Mason Daughter Health Care Agent Kwadwo Camarillo Spouse First Alternate Health Car e Agent Care Teams Building Architect Relationship Specialty Start Date End Date Maria Guadalupe Carrizales FNP [address] [place] [phone] PCP - General Family Medicine 03/24/22 Paramjit Iglesias MD [address] [place] [phone] Gastroenterology 09/18/24
--- OUTSIDE RECORDS SUMMARY | 2025-07-03 06:24 | XMS_ITS | Encounter Summary ---
Author Organization [employer] Address [address] [facility] [address] [place] [address] Care Team Providers Care Lamp Inspector Name Role Phone PamelaMaria Guadalupe musa PETER Primary Care Provider Paramjit Iglesias MD Unavailable [phone] Encounter Details Date Type Department Care Team (Late st Contact Info) Description 08/27/2023 Orders Only [facility] [address] [place], [place] [phone] Armin Melara MD [address] [place], [place] [phone] Acute left-sided low back pain without sciatica [...] 07/09/2025 10:00 AM EST Office Visit [facility] [address] [place] [address] Maria Guadalupe Carrizales FNP [address] [place] [address] documented as of this encounter Visit Diagnoses Diagnosis Acute left-sided low back pain without sciatica- Primary documented in this encounter Additional Health Concerns Assessment Noted Time PHQ-9 Depression Total Score: 2 12/16/19 23 9:21 AM EDT documented as of this encounter Care Teams Lamp Inspector Relationship Specialty Start Date End Date Maria Guadalupe Carrizales FNP [address] [place] [phone] PCP - General Family Medicine 03/24/22 Paramjit Iglesias MD [address] [place] [phone] Gastroenterology 09/18/24 documented as of this encounter
--- OUTSIDE RECORDS SUMMARY | 2025-07-03 06:24 | XMS_ITS | Encounter Summary ---
Author Organization [employer] Address [address] [facility] [facility] [facility] [address] [place] [address] Care Team Providers Care Curriculum Facilitator Name Role Phone PamelaMaria Guadalupe musa PETER Primary Care Provider [phone] Paramjit Iglesias MD Unavailable [phone] Encounter Details Date Type Department Care Team (Late st Contact Info) Description 06/10/2023 Abstract [facility] [address] [place] [address] Joy Barnes Social History Tobacco Use Types [...] 10:00 AM EST Office Visit [facility] [address] [place] [address] Maria Guadalupe Carrizales FNP [address] [place] [address] documented as of this encounter Procedures Procedure [...] documented as of this encounter Care Teams Curriculum Facilitator Relationship Specialty Start Date End Date Maria Guadalupe Carrizales FNP [address] [place] [address] PCP - General Family Medicine 03/24/22 Paramjit Iglesias MD [address] [place] [phone] Gastroenterology 09/18/24 documented as of this encounter
== END 2025-07-03 06:21 | disposition home or self-care (01) ==
LOC: CF 06:20
PROVIDERS: Visit Provider Anesthesiology
DX: M17.11 Unilateral primary osteoarthritis, right knee (principal); G89.29 Other chronic pain; M25.561 Pain in right knee
CPT/HCPCS: 64454; J2003; J2795

== ENCOUNTER 2025-07-03 10:33 | Outpatient (AMB) | payer MEDICARE, MEDICAID, SELFPAY ==
[2025-07-03 10:35] VITALS: BP 142/86; PULSE 79; RESP 16; O2SAT 100; BMI 32.4
--- NOTE | 2025-07-03 10:35 | A.OFFVIS_ITS ---
Vital Signs 07/03/25 10:35 07/03/25 11:08 Height 5 ft 3 in Weight 183 lb BMI 32.4 BP 142/86 H 138/77 Blood Pressure Location Lt brachial Lt brachial Position Sitting Sitting Respiration 16 16 Pulse 79 78 Pulse Source Pulse Oximeter Pulse Oximeter Pulse Oximetry (%) 100 100 Oxygen Delivery Method Room Air Room Air Intake Visit Reasons: Right Diagnostic Genicular Nerve Block Allergies No Known Allergies (No Known Allergies*) Allergy (Verified 05/14/25 11:15) [facility] Medical History (Updated 05/24/25 @ 20:10 by Brent Smyth MD) High cholesterol Arthritis Hypertension Diabetes Social History Current occupational status: retired 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 ?Informed consent was explained to the patient. All questions were explained and answered. The patient was taken inside the operating room. The patient was positioned supine on operating table with her?right leg elevated on a gel bin. ?Time-out was performed delineating correct site, side, the nature of the procedure, patient's allergy, preoperative antibiotic if needed. All operating room staff was participating in OR time-out procedure. C-arm was brought over the operating field and picture of the?left knee was demonstrated on the screen. Anterolateral and anteromedial surfaces of the knee were prepped with chloroprep and draped with utility towels. The point of interest were delineated for: 1.superior lateral genicular nerve as the confluence of the metaphysis of the? femur with corresponding diaphysis on the lateral silhouette of the femur distal bone, 2.superior medial genicular nerve (suprapatelar saphenous nerve) the point of interest was delineated as the confluence of the silhouette of metaphysis of the femur with corresponding diaphysis on the medial silhouette on the femoral distal bone. 3.inferior medial genicular nerve (suprapatellar saphenous nerve) the point of interest was delineated as the confluence of metaphysis of the proximal tibia on the medial side with corresponding diaphysis of the same bone. ?The projections of the points of interest on anterior surface of the left knee was injected with small amount of lidocaine 2% 1-to 2 ml. After that 3 22 gauge 3-1/2 inch needles were driven to? the point of interest in tunnel vision fashion. When needles gently contacted the bones the position of the C-arm was switched to the lateral view, care was taken to superimpose the the femoral condiles one over the other. The position of the needles were adjusted to assure that the tip of the canulas are located at the mid shaft of each of the above described bones. ?After that small amount of ropivacaine? 0.5%?1.5 mL was injected into each needle. Upon completion of the procedure needles were withdrawn and Band-Aid were applied Orders: Orders FL guidance in treatment room Today G89.29 - Other chronic pain, M25.561 - Pain in right knee Coding Level of Care Code Procedure Only Diagnoses Osteoarthritis of right knee M17.11 Chronic pain of right knee M25.561; G89.29
[2025-07-03 11:08] VITALS: BP 138/77; PULSE 78; RESP 16; O2SAT 100
== END 2025-07-03 11:08 | disposition home or self-care (01) ==
LOC: HO.PMCPRC 10:33
PROVIDERS: PCP Registered Nurse; Visit Provider Anesthesiology
DX: M17.11 Unilateral primary osteoarthritis, right knee (principal); M25.561 Pain in right knee; G89.29 Other chronic pain
CPT/HCPCS: 64454

== ENCOUNTER 2025-07-05 09:16 | Outpatient (AMB) | payer MEDICARE, MEDICAID, SELFPAY ==
--- NOTE | 2025-07-05 09:20 | MHC.OFFVIS ---
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 She has previously seen an Orthopedic surgeon, Dr. Smyth, who offered her knee surgery, which she declined. She reports that she is 2 days post-procedure and has experienced ongoing 90% pain relief since the block. On the day of the injection, she had no pain with walking or climbing stairs. She currently experiences pain when walking, climbing stairs, upon getting out of bed and with cold wintry weather. Denies any recent cough, cold, infection, fever or any significant changes in medical history since last office visit. Past Procedures: 07/03/25: Right diagnostic genicular nerve blocks-90% ongoing pain relief for 2 days PRIOR: The patient is a 69-year-old female presenting with chronic right knee pain. The knee pain has been present for several years, although the exact duration is unclear. The patient reports that previous cortisone injections did not provide significant relief, with the last injection administered few months ago by her primary care physician, providing her less than 2 months pain relief. Denies previous knee surgery. Patient also has history of chronic low back pain, however reports no back pain today. The patient has a history of tricompartmental osteoarthritis in both knees, with the right knee being more severely affected. An x-ray conducted last summer confirmed this diagnosis, showing more pronounced degeneration in the lateral compartment of the right knee. The patient denies any history of knee surgery. The patient also has a history of diabetes mellitus, which she reports is well-controlled. - Onset: Chronic, present for several years - Quality: Aching, sharp, stabbing, heavy, tight - Location: Right knee, more severe than left - Exacerbating factors: Walking, lifting leg, climbing stairs, bending knee, cold weather - Relieving factors: Partial relief with Tylenol, Ibuprofen, tried lidocaine patch and cortisone injections-lasting less than 2 months - Interference: Pain is constant, worse at night after walking and daily activities, rated 9/10 in severity - Affect: Pain significantly impacts daily activities, causing fear of knee locking - Analgesia: Previous cortisone injections provided no significant relief - Activities of Daily Living: Pain interferes with walking and climbing stairs - Aberrant Drug Related Behaviors: None reported [facility] Medical History High cholesterol Arthritis Hypertension Diabetes Social History Current occupational status: retired 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 Alert and oriented. Mood and affect appropriate. Follows and participates in conversation appropriately. Respiratory effort is unlabored. No cough. No nasal discharge. Able to transition from sit to stand unassisted. Ambulates with bilaterally normal heel strike and toe off. Extrem General: Yes capillary refill normal, Yes no clubbing, cyanosis or edema and Yes no calf tenderness Right lower extremity: knee (Limited ROM due to pain) Details: normal to inspection, tenderness Location: of the patella and of the lateral joint line and crepitus; no swelling, no ecchymosis, no deformity and no unusual warmth Results Reviewed Results Reviewed: XR KNEE, RIGHT XR KNEE, LEFT 02/22/24 CLINICAL INFORMATION: Osteoarthritis of both knees. COMPARISON: 01/12/2022 TECHNIQUE: Three views of each knee. FINDINGS: RIGHT KNEE: Bones are osteopenic. Moderate to severe lateral compartment joint space narrowing is again noted, more pronounced at the posterior weightbearing surface, similar to prior. Tricompartmental marginal osteophytes. No joint effusion. No fractures. LEFT KNEE: Moderate lateral compartment joint space narrowing. Tricompartmental marginal osteophytes. Chondrocalcinosis. No joint effusion. Bones are osteopenic. No fractures. IMPRESSION: Tricompartmental osteoarthritis in both knees, most pronounced in the lateral compartments, right greater than left. No significant change. Assessment & Plan Assessment & Plan (1) Chronic pain of right knee: Code(s): M25.561 - Pain in right knee; G89.29 - Other chronic pain Category: Medical (2) Osteoarthritis of right knee: Code(s): M17.11 - Unilateral primary osteoarthritis, right knee Category: Medical Plan Given the patient's positive response to the diagnostic genicular nerve block, with 90% pain relief extending beyond the expected duration, she qualifies for a therapeutic procedure. She has chosen to proceed with a right genicular radiofrequency ablation (RFA) with local and fluoroscopy and has declined the option of a peripheral nerve stimulator. The goal of the RFA is to provide extended pain relief, potentially for up to a year. Expectations, risks and benefits were reviewed. Patient is aware she will be contacted to schedule this procedure. If the RFA does not result in prolonged pain relief, she may reconsider knee surgery with her internal controls specialist. A follow-up visit will be scheduled after the RFA procedure. All questions and concerns have been answered and patient agreed with the treatment plan. Patient was informed and verbally consented to the use of an ambient scribe for clinic note documentation during this visit. Coding Level of Care Code Est Pt Level 3 (13247) Diagnoses Chronic pain of right knee M25.561; G89.29 Osteoarthritis of right knee M17.11
[2025-07-05 09:23] VITALS: BP 133/61; PULSE 76; O2SAT 98; BMI 31.7
== END 2025-07-05 09:34 | disposition home or self-care (01) ==
LOC: HO.PMC 09:16
PROVIDERS: PCP Registered Nurse; Visit Provider Nurse Practitioner Family
DX: M25.561 Pain in right knee (principal); G89.29 Other chronic pain; M17.11 Unilateral primary osteoarthritis, right knee
CPT/HCPCS: 99213

== ENCOUNTER → 2025-07-05 09:16 | Outpatient (BNVA) | payer MEDICARE, MEDICAID, SELFPAY | PROVIDERS: PCP Registered Nurse; Visit Provider Nurse Practitioner Family | DX: M25.561 Pain in right knee (principal); G89.29 Other chronic pain; M17.11 Unilateral primary osteoarthritis, right knee; Z98.890 Other specified postprocedural states | CPT/HCPCS: 99212 ==

== ENCOUNTER 2025-07-09 10:45 | Outpatient (REF) | payer MEDICARE, MEDICAID, SELFPAY ==
--- OUTSIDE RECORDS SUMMARY | 2024-07-13 08:55 | XMS_ITS ---
Author Organization [facility] Address [address] [place] [phone] Care Team Providers Care Waterworks Pump Station Operator Name Role Phone TERRI FUNES, ADENIKE Primary Care Provider Paramjit Irby Jr [phone] REASON FOR VISIT Patient presents today for a screening colonoscopy Encounters Encounter Location Date Provider Diagnosis [facility] [address] [place] [phone] 07/13/2024 Paramjit Iglesias Jr Plan Of Treatment No Information Progress Notes * OLIVE PENADOB: [birth year] (69 yo F)Acc No.[id number]:07/13/2024 Progress Notes Patient: OLIVE MONTEZ Provider: Aaron Iglesias MD :1955 A ge:68 Y S ex:Female Date:07/13/2024 Address:[address] [place], [place] [id number] Pcp:ADENIKE MURRAY MD Subjective: * Chief Complaints: [...] Iglesias MD Date: 09/13/2023 Generated for Bronwyn rasheed/Manas/Emilyitting on: 09/09/2024 06:57 AM EST
--- OUTSIDE RECORDS SUMMARY | 2024-11-16 08:55 | XMS_ITS ---
Author Organization [facility] Address [address] [place] [phone] Care Team Providers Care Messenger Office Name Role Phone TERRI FUNES, ADENIKE Primary Care Provider UnavailParamjit Gutierres Jr REASON FOR VISIT Patient presents today for a colon screening Encounters Encounter Location Date Provider Diagnosis [facility] [address] [place] [phone] 11/16/2024 Paramjit Iglesias Jr Plan Of Treatment No Information Progress Notes * OLIVE PENADOB: 5 (69 yo F)Acc No.[id number]:11/16/2024 Progress Notes Patient: OLIVE MONTEZ Provider: Aaron Iglesias MD :1955 A ge:69 Y S ex:Female Date:11/16/2024 Address:[address] [place], [place] [id number] Pcp:ADENIKE MURRAY MD Subjective: * Chief Complaints: [...] 11/16/2024 Generated for Bronwyn rasheed/Manas/Roseanna on: 1 09/09/2024 06:57 AM EST
--- OUTSIDE RECORDS SUMMARY | 2025-07-09 14:58 | XMS_ITS | Patient Health Record ---
Author Organization [facility] Address [address] [place] [address] Care Team Providers Care Registered Nurse Fetal Name Role Phone ADENIKE MURRAY MD Primary Care Provider Paramjit Irby Jr Reason For Referral No Information Encounters Encounter Location Date Provider Diagnosis [facility] [address] [place] [address] 11/16/2024 Paramjit Iglesias Jr Plan Of Treatment No Information Insurance Providers Payer Name Payer Address Payer Phone Subscriber Number Group Number Insured Name Patient Relationship to Insured Coverage Start Date Coverage End Date MEDICARE OF [place] [address] [place] [id number] OLIVE PENA Self - patient is the insured MEDICAID OF [facility] [address] [place] [phone] [id number] OLIVE PENA Self - patient is the insured
[2025-07-09 15:20] LABS: Vitamin B12 257 pg/mL (200-900)
== END 2025-07-09 10:46 | disposition home or self-care (01) ==
LOC: HO.CHCLDS 10:45
PROVIDERS: Visit Provider Registered Nurse
DX: Z00.00 Encounter for general adult medical examination without abnormal findings (principal); E53.8 Deficiency of other specified B group vitamins; E55.9 Vitamin D deficiency, unspecified
CPT/HCPCS: 36415; 82306; 82607